=== PATIENT | male | born 1985 | race Caucasian/White ===

== ENCOUNTER 2016-07-12 17:10 | Emergency (ER) | payer OTHER ==
[~2016-07-12] VITALS: Ht 175.3 cm; Wt 63.0 kg
[~2016-07-12 17:10] MED LIST: ATOM40CA PO; DOXY-300 PO; HYDR-5688 PO; NAPR-1169 PO
[2016-07-12 17:26] VITALS: TEMP 37; Ht 175.3 cm; Wt 63.0 kg
--- NOTE | 2016-07-12 17:49 | EMERGENCY ROOM VISIT NOTE ---
History Report prepared by Ana: Mady Russell Under the Supervision of: Dr. Cm Hare D.O. First contact with patient: 17:26 Chief Complaint: MENTAL HEALTH EVALUATION Stated Complaint: MENTAL HEATLTH EVAL History of Present Illness The patient is a 31 year old male who presents to the Emergency Room with complaints of constant depression beginning a week ago. The patient states that he is hearing whispering when he is around people. He reports that the whispers are like someone is talking about him but he can not make out what they are saying. He reports that he has been cutting his wrists since last week. The patient states that he stopped taking his medication for depression. He notes that he went to the [facility] 2 months ago for 2 weeks after attempting to commit suicide. When he got out of the [facility] he was feeling better than before he went in. He has suicidal ideation with no plan other than cutting. The patient states that he "honestly would like to fuck my dad up right now because after I got out of the [facility] he tied a noose around my bag". Source of History: patient Onset: last week Position: other (mental health) Quality: other (depression) Timing: constant Note: Suicidal ideations. Review of Systems See HPI for pertinent positives & negatives. A total of 10 systems reviewed and were otherwise negative. Past Medical & Surgical Medical Problems: (1) Bronchitis (2) Cellulitis (3) Cervical adenopathy (4) Chest pain, precordial (5) Genital warts (6) No history of heart disease (7) Pancreatitis (8) Pneumomediastinum (9) Pneumonia Family History Cancer Diabetes mellitus FH: cancer Gallbladder disease Heart disease Hypertension Kidney disease Kidney stones Lung disease Seizures Social History Smoking Status: Current Every Day Smoker Alcohol Use: occasionally Drug Use: marijuana Marital Status: single Housing Status: lives alone Occupation Status: unemployed Current/Historical Medications Scheduled Aspirin (Aspirin Ec), 81 MG PO DAILY Atomoxetine (Strattera), 40 MG PO DAILY Clonidine Hcl (Catapres), 1 TAB PO BID Naproxen (Naprosyn), 500 MG PO BID Probiotic Product (Probiotic), 1 CAP PO DAILY Allergies Coded Allergies: No Known Allergies (Unverified , 07/12/16) Physical Exam Vital Signs Date Time Temp Pulse Resp B/P Pulse Ox O2 Delivery O2 Flow Rate FiO2 07/13/16 07:35 71 15 133/78 98 Room Air 07/12/16 23:12 97 18 116/70 99 Room Air 07/12/16 17:26 37.0 115 18 144/105 98 Room Air Physical Exam GENERAL: Patient is awake, alert, very guarded and somewhat anxious appearing. EYES: The conjunctivae are clear. The pupils are round and reactive. EARS, NOSE, MOUTH AND THROAT: The nose is without any evidence of any deformity. Mucous membranes are moist tongue is midline NECK: The neck is nontender and supple. RESPIRATORY: Normal respiratory effort is noted there is no evidence of wheezing rhonchi or rales CARDIOVASCULAR: Regular rate and rhythm noted there no murmurs rubs or gallops normal S1 normal S2 GASTROINTESTINAL: The abdomen is soft. Bowel sounds are present in all quadrants. Abdomen is nontender MUSCULOSKELETAL/EXTREMITIES: There is no evidence of gross deformity full range of motion is noted in the hips and shoulders SKIN: There is no obvious evidence of any rash. There are no petechiae, pallor or cyanosis noted. Multiple superficial abrasions to the wrist, no active bleeding. NEUROLOGIC: Patient is awake alert and oriented x3 strength is symmetric patellar reflexes are 2+ bilaterally PSYCH: The patient was awake and very guarded appearing, he was very anxious and makes poor eye contact. He admits to suicidal and homicidal ideation. Medical Decision & Procedures Laboratory Results 07/12/16 18:00 Red Blood Count 5.19, Mean Corpuscular Volume 89.8, Mean Corpuscular Hemoglobin 32.8, Mean Corpuscular Hemoglobin Concent 36.5, Mean Platelet Volume 9.5, Neutrophils (%) (Auto) 71.2, Lymphocytes (%) (Auto) 18.7, Monocytes (%) (Auto) 6.1, Eosinophils (%) (Auto) 3.5, Basophils (%) (Auto) 0.2, Neutrophils # (Auto) 7.59, Lymphocytes # (Auto) 1.99, Monocytes # (Auto) 0.65, Eosinophils # (Auto) 0.37, Basophils # (Auto) 0.02 07/12/16 18:00 Test 07/12/16 17:34 07/12/16 18:00 Urine Color DK YELLOW Urine Appearance CLEAR (CLEAR) Urine pH 5.0 (4.5-7.5) Urine Specific [place] 1.026 (1.000-1.030) Urine Protein 1+ (NEG) Urine Glucose (UA) NEG (NEG) Urine Ketones 1+ (NEG) Urine Occult Blood NEG (NEG) Urine Nitrite NEG (NEG) Urine Bilirubin NEG (NEG) Urine Urobilinogen NEG (NEG) Urine Leukocyte Esterase NEG (NEG) Urine WBC (Auto) 1-5 /hpf (0-5) Urine RBC (Auto) 0-4 /hpf (0-4) Urine Hyaline Casts (Auto) 5-10 /lpf (0-5) Urine Epithelial Cells (Auto) 10-20 /lpf (0-5) Urine Bacteria (Auto) NEG (NEG) Urine Opiates Screen POS (NEG) Urine Methadone, Qualitative NEG (NEG) Urine Barbiturates NEG (NEG) Urine Phencyclidine (PCP) Level NEG (NEG) Ur Amphetamine/Methamphetamine NEG (NEG) MDMA (Ecstasy) Screen NEG (NEG) Urine Benzodiazepines Screen NEG (NEG) Urine Cocaine Metabolite NEG (NEG) Urine Marijuana (THC) POS (NEG) White Blood Count 10.65 K/uL (4.8-10.8) Red Blood Count 5.19 M/uL (4.7-6.1) Hemoglobin 17.0 g/dL (14.0-18.0) Hematocrit 46.6 % (42-52) Mean Corpuscular Volume 89.8 fL (80-100) Mean Corpuscular Hemoglobin 32.8 pg (25-34) Mean Corpuscular Hemoglobin Concent 36.5 g/dl (32-36) Platelet Count 213 K/uL (130-400) Mean Platelet Volume 9.5 fL (7.4-10.4) Neutrophils (%) (Auto) 71.2 % Lymphocytes (%) (Auto) 18.7 % Monocytes (%) (Auto) 6.1 % Eosinophils (%) (Auto) 3.5 % Basophils (%) (Auto) 0.2 % Neutrophils # (Auto) 7.59 K/uL (1.4-6.5) Lymphocytes # (Auto) 1.99 K/uL (1.2-3.4) Monocytes # (Auto) 0.65 K/uL (0.11-0.59) Eosinophils # (Auto) 0.37 K/uL (0-0.5) Basophils # (Auto) 0.02 K/uL (0-0.2) RDW Standard Deviation 42.6 fL (36.4-46.3) RDW Coefficient of Variation 13.0 % (11.5-14.5) Immature Granulocyte % (Auto) 0.3 % Immature Granulocyte # (Auto) 0.03 K/uL (0.00-0.02) Anion Gap 13.0 mmol/L (3-11) Est Creatinine Clear Calc Drug Dose 106.7 ml/min Estimated GFR () 131.5 Estimated GFR (Non- 113.5 BUN/Creatinine Ratio 16.9 (10-20) Calcium Level 9.2 mg/dl (8.5-10.1) Total Bilirubin 0.8 mg/dl (0.2-1) Direct Bilirubin 0.2 mg/dl (0-0.2) Aspartate Amino Transf (AST/SGOT) 25 U/L (15-37) Alanine Aminotransferase (ALT/SGPT) 26 U/L (12-78) Alkaline Phosphatase 111 U/L (45-117) Total Protein 7.2 gm/dl (6.4-8.2) Albumin 3.9 gm/dl (3.4-5.0) Globulin 3.3 gm/dl (2.5-4.0) Albumin/Globulin Ratio 1.2 (0.9-2) Thyroid Stimulating Hormone (TSH) 0.533 uIu/ml (0.300-4.500) Ethyl Alcohol mg/dL < 3.0 mg/dl (0-3) Laboratory results per my review. Medications Administered Medications (Trade) Dose Ordered Sig/Amada Route Start Time Stop Time Status Last Admin Dose Admin Clonidine HCl (Catapres Tab) 0.2 mg NOW ONCE PO 07/12/16 18:00 07/12/16 18:01 DC 07/12/16 18:13 0.2 MG Nicotine (Nicoderm Cq 14MG Patch) 1 patch STK-MED ONCE .ROUTE 07/12/16 23:35 07/12/16 23:37 DC 07/12/16 23:39 1 PATCH Aspirin (Aspirin Chew) 81 mg NOW STAT PO 07/13/16 07:34 07/13/16 07:35 DC 07/13/16 08:04 81 MG Clonidine HCl (Catapres Tab) 0.1 mg NOW ONCE PO 07/13/16 07:45 07/13/16 07:46 DC 07/13/16 08:04 0.1 MG Naproxen (Naprosyn Tab) 500 mg NOW STAT PO 07/13/16 11:13 07/13/16 11:14 DC 07/13/16 11:20 500 MG ED Course 1726: The patient was evaluated in room A5. A complete history and physical examination were performed. 1800: Clonidine HCl 0.2mg PO. 2011: I reevaluated the patient. He is going to stay the night and possibly go to the [facility] in the morning. He is agreeable to this. 2300: The patient was signed out to Dr. Liu. Medical Decision Differential diagnosis: Etiologies such as mood disorder, infection, hypoglycemia, electrolyte abnormalities, cardiac sources, intracerebral event, toxicologic, neurologic, as well as others were entertained. Nursing notes reviewed. The patient's previous electronic medical records were reviewed. The patient is a 31-year-old male who presented to the emergency department for a mental health evaluation. The patient has been having significant depression symptoms. He has been cutting his arm in attempt to harm himself. He also has significant homicidal thoughts toward his father. The patient was admitted to facility recently and had some medications changed. The patient states he has not been compliant with his medications. He was treated with clonidine in the emergency department. He was reevaluated multiple times. He was feeling much better on subsequent reevaluation. The patient was medically cleared in the emergency department. He was felt to be a good candidate for inpatient management. He was initially evaluated by the emergency department mental health caseworker protective services. He was then evaluated by the [facility]. At this time a bed search is underway. Impression Primary Impression: Depression Additional Impressions: Suicidal ideation Self-harming behavior Scribe Attestation The scribe's documentation has been prepared under my direction and personally reviewed by me in its entirety. I confirm that the note above accurately reflects all work, treatment, procedures, and medical decision making performed by me. Departure Information Dispostion Still a Patient Referrals No Doctor, Assigned (PCP) Patient Instructions My [facility] Problem Qualifiers
[2016-07-12] MEDS ORDERED: MISCCAP80 PO (17:52)
[2016-07-12] MEDS ORDERED: CLONIDINE HCL 0.1 MG TAB PO ONE (18:00)
[2016-07-12 18:12] LABS: BASO % 0.2 %; BASO ABS # 0.02 K/uL (0-0.2); COMPLETE YES; EOS % 3.5 %; HEMATOCRIT 46.6 % (42-52); IG% 0.3 %; LYMPH % 18.7 %; LYMPH ABS # 1.99 K/uL (1.2-3.4); MEAN CELL VOLUME 89.8 fL (80-100); MEAN CORPUSCULAR HEMOGLOBIN 32.8 pg (25-34); MEAN CORPUSCULAR HGB CONC 36.5 g/dl (32-36); MEAN PLATELET VOLUME 9.5 fL (7.4-10.4); MONO % 6.1 %; NEUT % 71.2 %; PLATELET COUNT 213 K/uL (130-400); RED BLOOD COUNT 5.19 M/uL (4.7-6.1); WHITE BLOOD COUNT 10.65 K/uL (4.8-10.8)
[2016-07-12 18:15] LABS: URINE APPEARANCE CLEAR (CLEAR); URINE COLOR DK YELLOW; URINE NITRITE NEG (NEG); URINE SPECIFIC GRAVITY 1.026 (1.000-1.030); UROBILINOGEN NEG (NEG)
[2016-07-12 18:17] LABS: MANUAL MICROSCOPIC REQUIRED? NO; REVIEW REQ? NO; URINE BILIRUBIN NEG (NEG)
[2016-07-12 18:34] LABS: BUN/CREATININE RATIO 16.9 (10-20); CALCIUM 9.2 mg/dl (8.5-10.1); CREATININE 0.91 mg/dl (0.60-1.40); POTASSIUM 3.5 mmol/L (3.5-5.1)
[2016-07-12 18:42] LABS: BENZODIAZEPINE, URINE NEG (NEG); COCAINE,URINE NEG (NEG); PHENCYCLIDINE, URINE NEG (NEG)
[2016-07-12 18:44] LABS: ALB/GLOB RATIO 1.2 (0.9-2); THYROID STIMULATING HORMONE 0.533 uIu/ml (0.300-4.500)
[2016-07-12] MEDS ORDERED: NURSING VERBAL MED ORDER ONE (23:30)
[2016-07-12] MEDS ORDERED: NICOTINE 14 MG/24 HR TDSY ONE (23:35)
[2016-07-12] MEDS ORDERED: NICOTINE 14 MG/24 HR TDSY TD STA (23:40)
--- NOTE | 2016-07-13 07:05 | EMERGENCY ROOM VISIT NOTE ---
ED Visit Note First contact with patient: 00:44 This case was signed out to me at change of shift awaiting further evaluation by mobile crisis. They have been performing a bed search for quite some time. They have not found any facility that is willing to take this patient. At this time, the bed search will be suspended. I checked on the patient multiple times and he was sleeping. The case was signed out to Dr. Gonzales at change of shift. They will resume the bed search this morning.
[2016-07-13] MEDS ORDERED: ASPIRIN 81 MG CHEW PO STA (07:34)
[2016-07-13] MEDS ORDERED: CLONIDINE HCL 0.1 MG TAB PO ONE (07:45)
[2016-07-13] MEDS ORDERED: NAPROXEN 250 MG TAB PO STA (11:13)
--- NOTE | 2016-07-13 13:35 | EMERGENCY ROOM VISIT NOTE ---
ED Visit Note First contact with patient: 07:34 This patient was signed out to me pending psychiatric placement. I did provide his morning medications. He was accepted by [facility] and will be transported securely at 5 PM.
[2016-07-13] MEDS ORDERED: NICOTINE POLACRILEX 2 MG GUM MT STA (13:49)
[2016-07-13 19:02] VITALS: BP 123/74; PULSE 75; O2SAT 96
[2016-07-15 12:07] LABS: COD UR NEGATIVE NG/ML (CUTOFF=50); HYDROCOD UR 548 NG/ML (CUTOFF=50); HYDROMOR UR 618 NG/ML (CUTOFF=50); MORPHINE UR NEGATIVE NG/ML (CUTOFF=50); NORHYDROCODONE CONF UR 1750 NG/ML (CUTOFF=50); OXYMORPH UR NEGATIVE NG/ML (CUTOFF=50)
[2016-07-16 13:33] LABS: SYNTHETIC CANNABINOIDS QL URIN NEGATIVE (Negative)
[2016-09-14] MEDS ORDERED: SERT-234 PO (11:29)
[2016-09-14] MEDS ORDERED: CHLO100T8 PO (11:51)
[2017-03-03] MEDS ORDERED: CLON0.1T12 PO (02:11)
[2017-03-03] MEDS ORDERED: ASPI81TA28 PO (02:11)
[2017-03-03] MEDS ORDERED: SERT-234 PO (02:31)
== END 2016-07-13 18:35 ==
LOC: C.EDB 17:11 → C.EDA 07-13 18:35
DX: F32.9 Major depressive disorder, single episode, unspecified (principal); R45.851 Suicidal ideations; Z91.5 Personal history of self-harm; F17.210 Nicotine dependence, cigarettes, uncomplicated; Z79.82 Long term (current) use of aspirin; Z79.899 Other long term (current) drug therapy

== ENCOUNTER 2016-09-07 11:46 | Inpatient (IN) | payer OTHER ==
[~2016-09-07] VITALS: Ht 175.3 cm; Wt 67.4 kg
[~2016-09-07 11:46] MED LIST changes: -DOXY-300 PO; -HYDR-5688 PO; +MISCCAP80 PO
[2016-09-07] MEDS ORDERED: LORAZEPAM 1 MG TAB SL STA (12:07)
[2016-09-07] MEDS ORDERED: HALOPERIDOL 5 MG TAB PO STA (12:07)
[2016-09-07 12:35] LABS: URINE APPEARANCE CLEAR (CLEAR); URINE BILIRUBIN NEG (NEG); URINE COLOR YELLOW; URINE NITRITE NEG (NEG); URINE PH 7.5 (4.5-7.5); URINE SPECIFIC GRAVITY 1.005 (1.000-1.030); UROBILINOGEN NEG (NEG)
[2016-09-07 12:36] LABS: MANUAL MICROSCOPIC REQUIRED? NO; REVIEW REQ? NO
[2016-09-07] MEDS ORDERED: AMPH20TA2 PO (12:48)
[2016-09-07] MEDS ORDERED: SERT-234 PO (12:48)
[2016-09-07] MEDS ORDERED: ZOLP10TA PO (12:48)
[2016-09-07] MEDS ORDERED: GABA400C PO (12:48)
[2016-09-07] MEDS ORDERED: CHLO100T8 PO (12:48)
[2016-09-07 12:58] LABS: BASO % 0.7 %; BASO ABS # 0.05 K/uL (0-0.2); COMPLETE YES; EOS % 9.9 %; HEMATOCRIT 41.2 % (42-52); IG% 0.4 %; LYMPH % 29.7 %; LYMPH ABS # 2.26 K/uL (1.2-3.4); MEAN CELL VOLUME 91.4 fL (80-100); MEAN CORPUSCULAR HEMOGLOBIN 31.3 pg (25-34); MEAN CORPUSCULAR HGB CONC 34.2 g/dl (32-36); MEAN PLATELET VOLUME 9.5 fL (7.4-10.4); MONO % 9.6 %; NEUT % 49.7 %; PLATELET COUNT 237 K/uL (130-400); RED BLOOD COUNT 4.51 M/uL (4.7-6.1)
[2016-09-07 13:00] LABS: BENZODIAZEPINE, URINE NEG (NEG); COCAINE,URINE NEG (NEG); PHENCYCLIDINE, URINE NEG (NEG)
--- NOTE | 2016-09-07 13:13 | EMERGENCY ROOM VISIT NOTE ---
History Report prepared by Ana: Estrella Oconnor Under the Supervision of: Dr. Cm Hare D.O. First contact with patient: 12:03 Chief Complaint: MENTAL HEALTH EVALUATION Stated Complaint: CAN HELP History of Present Illness The patient is a 31 year old male who presents to the Emergency Room with complaints of worsening depression that began prior to arrival. Per the psych case coordinator, the patient was at his therapist's office today and stated that he has access to guns and wanted to harm himself. She notes that the patient has a list of people that he would like to harm as well. The psych case coordinator notes that the patient is a former heroin user. The patient states that today he is feeling increasingly depressed and wants to "blow his brains out." He additionally notes his list of people he would want to harm. The patient states that he isn't going to act on his threats. He states that he has been dealing with the feelings for most of his life. The patient notes that he is a self mutilator. He denies ever doing anything in the past with a firearm. The patient denies owning a firearm, but states that he does have access to them. The patient states that his aggressive tendencies have caused him to make the homicidal threats. He states that he hasn't taken his medications in two days. The patient states that he is currently supposed to be on Latuda, Ambien, Klonidine, Adderall, Gabapentin, and Sertraline. He states that he had adverse effects from Latuda, and then stopped taking the rest of his medications. The patient states that he has done this in the past. He states that he has been hospitalized for psychiatric reasons three times within the last three months. The patient states that he has always been voluntary in the past and states that his last admission was at [place]. He states that he is feeling anxious today. The patient notes tobacco, alcohol, and marijuana use. He notes a medical history of pancreatitis due to his alcohol use. The patient states that he did not eat today. Source of History: patient, other (psych case coordinator) Onset: prior to arrival Position: other (global) Quality: other (depression) Timing: worsening Note: Associated Symptoms: stopped taking medications, suicidal and homicidal threats Review of Systems See HPI for pertinent positives & negatives. A total of 10 systems reviewed and were otherwise negative. Past Medical & Surgical Medical Problems: (1) Bronchitis (2) Cellulitis (3) Cervical adenopathy (4) Chest pain, precordial (5) Genital warts (6) No history of heart disease (7) Pancreatitis (8) Pneumomediastinum (9) Pneumonia (10) Suicidal ideation Family History Cancer Diabetes mellitus FH: cancer Gallbladder disease Heart disease Hypertension Kidney disease Kidney stones Lung disease Seizures Social History Smoking Status: Current Every Day Smoker Alcohol Use: occasionally Drug Use: marijuana Marital Status: single Housing Status: lives alone Occupation Status: unemployed Current/Historical Medications Scheduled Amphetamine-Dextroamphetamine 20MG (Adderall 20MG), 20 MG PO BID Aspirin (Aspirin Ec), 81 MG PO DAILY Clonidine Hcl (Catapres), 1 TAB PO BID Gabapentin (Neurontin), 400 MG PO TID Naproxen (Naprosyn), 500 MG PO BID Probiotic Product (Probiotic), 1 CAP PO DAILY Sertraline (Zoloft), 100 MG PO DAILY Zolpidem Tartrate (Ambien), 10 MG PO HS Scheduled PRN Chlorpromazine Hcl (Thorazine), 100 MG PO TID PRN for Agitation Allergies Coded Allergies: No Known Allergies (Unverified , 09/07/16) Physical Exam Vital Signs Date Time Temp Pulse Resp B/P Pulse Ox O2 Delivery O2 Flow Rate FiO2 09/07/16 11:51 37.1 105 16 125/71 100 Room Air Physical Exam GENERAL: Patient is pacing around the room, very guarded and anxious in appearance. EYES: The conjunctivae are clear. The pupils are round and reactive. EARS, NOSE, MOUTH AND THROAT: The nose is without any evidence of any deformity. Mucous membranes are moist tongue is midline NECK: The neck is nontender and supple. RESPIRATORY: Normal respiratory effort is noted there is no evidence of wheezing rhonchi or rales CARDIOVASCULAR: Regular rate and rhythm noted there no murmurs rubs or gallops normal S1 normal S2 GASTROINTESTINAL: The abdomen is soft. Bowel sounds are present in all quadrants. Abdomen is nontender MUSCULOSKELETAL/EXTREMITIES: There is no evidence of gross deformity full range of motion is noted in the hips and shoulders SKIN: There is no obvious evidence of any rash. There are no petechiae, pallor or cyanosis noted. NEUROLOGIC: Patient is awake alert and oriented x3 strength is symmetric patellar reflexes are 2+ bilaterally PSYCH: Very guarded and anxious appearing. Makes poor eye contact at times. Admits to suicidal ideation with plans to shoot self. Does not appear to be responding to internal stimuli. Medical Decision & Procedures Laboratory Results 09/07/16 12:45 Red Blood Count 4.51, Mean Corpuscular Volume 91.4, Mean Corpuscular Hemoglobin 31.3, Mean Corpuscular Hemoglobin Concent 34.2, Mean Platelet Volume 9.5, Neutrophils (%) (Auto) 49.7, Lymphocytes (%) (Auto) 29.7, Monocytes (%) (Auto) 9.6, Eosinophils (%) (Auto) 9.9, Basophils (%) (Auto) 0.7, Neutrophils # (Auto) 3.78, Lymphocytes # (Auto) 2.26, Monocytes # (Auto) 0.73, Eosinophils # (Auto) 0.75, Basophils # (Auto) 0.05 09/07/16 12:45 Test 09/07/16 12:15 09/07/16 12:45 Urine Color YELLOW Urine Appearance CLEAR (CLEAR) Urine pH 7.5 (4.5-7.5) Urine Specific [place] 1.005 (1.000-1.030) Urine Protein NEG (NEG) Urine Glucose (UA) NEG (NEG) Urine Ketones NEG (NEG) Urine Occult Blood NEG (NEG) Urine Nitrite NEG (NEG) Urine Bilirubin NEG (NEG) Urine Urobilinogen NEG (NEG) Urine Leukocyte Esterase NEG (NEG) Urine Opiates Screen NEG (NEG) Urine Methadone, Qualitative NEG (NEG) Urine Barbiturates NEG (NEG) Urine Phencyclidine (PCP) Level NEG (NEG) Ur Amphetamine/Methamphetamine NEG (NEG) MDMA (Ecstasy) Screen NEG (NEG) Urine Benzodiazepines Screen NEG (NEG) Urine Cocaine Metabolite NEG (NEG) Urine Marijuana (THC) POS (NEG) White Blood Count 7.60 K/uL (4.8-10.8) Red Blood Count 4.51 M/uL (4.7-6.1) Hemoglobin 14.1 g/dL (14.0-18.0) Hematocrit 41.2 % (42-52) Mean Corpuscular Volume 91.4 fL (80-100) Mean Corpuscular Hemoglobin 31.3 pg (25-34) Mean Corpuscular Hemoglobin Concent 34.2 g/dl (32-36) Platelet Count 237 K/uL (130-400) Mean Platelet Volume 9.5 fL (7.4-10.4) Neutrophils (%) (Auto) 49.7 % Lymphocytes (%) (Auto) 29.7 % Monocytes (%) (Auto) 9.6 % Eosinophils (%) (Auto) 9.9 % Basophils (%) (Auto) 0.7 % Neutrophils # (Auto) 3.78 K/uL (1.4-6.5) Lymphocytes # (Auto) 2.26 K/uL (1.2-3.4) Monocytes # (Auto) 0.73 K/uL (0.11-0.59) Eosinophils # (Auto) 0.75 K/uL (0-0.5) Basophils # (Auto) 0.05 K/uL (0-0.2) RDW Standard Deviation 45.1 fL (36.4-46.3) RDW Coefficient of Variation 13.5 % (11.5-14.5) Immature Granulocyte % (Auto) 0.4 % Immature Granulocyte # (Auto) 0.03 K/uL (0.00-0.02) Anion Gap 10.0 mmol/L (3-11) Est Creatinine Clear Calc Drug Dose 122.6 ml/min Estimated GFR () 135.8 Estimated GFR (Non- 117.2 BUN/Creatinine Ratio 19.0 (10-20) Calcium Level 8.5 mg/dl (8.5-10.1) Total Bilirubin 0.2 mg/dl (0.2-1) Direct Bilirubin < 0.1 mg/dl (0-0.2) Aspartate Amino Transf (AST/SGOT) 31 U/L (15-37) Alanine Aminotransferase (ALT/SGPT) 55 U/L (12-78) Alkaline Phosphatase 136 U/L (45-117) Total Protein 7.4 gm/dl (6.4-8.2) Albumin 4.0 gm/dl (3.4-5.0) Globulin 3.4 gm/dl (2.5-4.0) Albumin/Globulin Ratio 1.2 (0.9-2) Thyroid Stimulating Hormone (TSH) 2.590 uIu/ml (0.300-4.500) Ethyl Alcohol mg/dL < 3.0 mg/dl (0-3) Laboratory results per my review. Medications Administered Medications (Trade) Dose Ordered Sig/Amada Route Start Time Stop Time Status Last Admin Dose Admin Lorazepam (Ativan Tab) 1 mg NOW STAT SL 09/07/16 12:07 09/07/16 12:08 DC 09/07/16 12:30 1 MG Haloperidol (Haldol Tab) 5 mg ONE STAT PO 09/07/16 12:07 09/07/16 12:08 DC 09/07/16 12:30 5 MG Amphetamine Aspartate/ Amphetam Sulf (Amphetamine Aspartate/Amph Sulf/Dextramphet) 20 mg ONE STAT PO 09/07/16 14:22 09/07/16 14:24 DC 09/07/16 14:22 20 MG Gabapentin (Neurontin Cap) 400 mg ONE STAT PO 09/07/16 14:22 09/07/16 14:24 DC 09/07/16 14:59 400 MG Sertraline HCl (Zoloft Tab) 100 mg ONE STAT PO 09/07/16 14:22 09/07/16 14:24 DC 09/07/16 14:59 100 MG ED Course 1206: The patient was evaluated in room A7. A complete history and physical examination were performed. 1207: Ordered Haldol Tab 5 mg PO, Ativan Tab 1 mg SL. 1422: Ordered Zoloft Tab 100 mg PO, Gabapentin 400 mg PO, Amphetamine Aspartate/ Amphetam Sulf 20 mg PO. 1452: I reevaluated the patient and he is resting comfortably. I discussed the exam findings and I discussed the treatment plan. He verbalized complete understanding and agreement. He has been accepted to [facility] for further evaluation and treatment. Medical Decision Differential diagnosis: Etiologies such as mood disorder, infection, hypoglycemia, electrolyte abnormalities, cardiac sources, intracerebral event, toxicologic, neurologic, as well as others were entertained. Nursing notes reviewed. Additional history was obtained from the patient's therapist. The patient is a 31-year-old male who presented to the emergency department at the request of his primary therapist for an evaluation of suicidal ideation. The patient had very specific suicidal ideation and plans. The patient was also very anxious and appeared very guarded. The patient was treated with his usual outpatient medication but was also treated with Ativan and Haldol in the emergency department for anxiety. The patient was reevaluated multiple times. He was feeling much better on subsequent reevaluation. He was evaluated by the emergency department mental health case coordinator. He was felt to be a good candidate for inpatient management and was agreeable to this. He was evaluated by the delegate from [address] [place] [id number] and was felt to be a good candidate for admission to their service. I discussed patient's laboratory studies with him. Impression Primary Impression: Depression Additional Impressions: Suicidal ideation Aggressive behavior Scribe Attestation The scribe's documentation has been prepared under my direction and personally reviewed by me in its entirety. I confirm that the note above accurately reflects all work, treatment, procedures, and medical decision making performed by me. Departure Information Dispostion Mental Health Acute Care Referrals No Doctor, Assigned (PCP) Problem Qualifiers Primary Impression: Depression Depression Type: unspecified Qualified Codes: F32.9 - Major depressive disorder, single episode, unspecified
[2016-09-07 13:16] LABS: BLOOD UREA NITROGEN 16 mg/dl (7-18); CALCIUM 8.5 mg/dl (8.5-10.1); CARBON DIOXIDE 24 mmol/L (21-32); CHLORIDE 107 mmol/L (98-107); CREATININE 0.86 mg/dl (0.60-1.40); GLUCOSE 93 mg/dl (70-99); POTASSIUM 4.2 mmol/L (3.5-5.1); SODIUM 141 mmol/L (136-145)
[2016-09-07 13:26] LABS: ALB/GLOB RATIO 1.2 (0.9-2); ALKALINE PHOSPHATASE 136 U/L (45-117); ALT/SGPT 55 U/L (12-78); AST/SGOT 31 U/L (15-37)
[2016-09-07] MEDS ORDERED: AMPHETAMINE ASP/SULF/DEXTRAMPH 20 MG TAB PO STA (14:22)
[2016-09-07] MEDS ORDERED: GABAPENTIN 400 MG CAP PO STA (14:22)
[2016-09-07] MEDS ORDERED: SERTRALINE HCL 100 MG TAB PO STA (14:22)
[2016-09-07] MEDS ORDERED: BISMUTH SUBSALICYLATE PER ML OMNICELL CHARGE PO PRN (14:45)
[2016-09-07] MEDS ORDERED: SODIUM CHLORIDE 0.65% NA SOLN 45 ML (OCEAN) PRN (14:45)
[2016-09-07] MEDS ORDERED: ACETAMINOPHEN 325 MG TAB PO PRN (14:45)
[2016-09-07] MEDS ORDERED: hydrOXYzine HCL 25 MG TAB PO PRN (14:45)
[2016-09-07] MEDS ORDERED: MAGNESIUM HYDROXIDE SUSP 30 ML UDC PO PRN (14:45)
[2016-09-07] MEDS ORDERED: CHLORPROMAZINE HCL 100 MG TAB PO PRN (14:45)
[2016-09-07] MEDS ORDERED: ALUMINUM/MAGNESIUM SUSP 30 ML UDC PO PRN (14:45)
[2016-09-07 15:41] VITALS: O2SAT 99
[2016-09-07] MEDS ORDERED: NURSING VERBAL MED ORDER ONE (16:15)
[2016-09-07 17:04] VITALS: BP 134/87; PULSE 91; TEMP 37; Ht 175.3 cm; Wt 67.4 kg
[2016-09-07] MEDS: NICOTINE 21 MG/24 HR TDSY EXT SCH (21:03)
[2016-09-07] MEDS: GABAPENTIN 400 MG CAP PO SCH (21:55)
[2016-09-07] MEDS: CLONIDINE HCL 0.1 MG TAB PO SCH (21:56)
[2016-09-07] MEDS: NAPROXEN 250 MG TAB PO SCH (21:57)
[2016-09-07] MEDS: hydrOXYzine HCL 25 MG TAB PO PRN (23:12)
[2016-09-08 07:02] VITALS: BP_SYST 107; BP_SYST 110; BP_DIAS 71; BP_DIAS 75; PULSE 88; PULSE 97; TEMP 36.8
[2016-09-08] MEDS: NICOTINE 21 MG/24 HR TDSY EXT SCH (08:51)
[2016-09-08] MEDS: ASPIRIN 81 MG ECTAB PO SCH (08:52)
[2016-09-08] MEDS: CLONIDINE HCL 0.1 MG TAB PO SCH ×2 (08:52→21:18)
[2016-09-08] MEDS: GABAPENTIN 400 MG CAP PO SCH (08:52)
[2016-09-08] MEDS: NAPROXEN 250 MG TAB PO SCH ×2 (08:52→21:18)
[2016-09-08] MEDS ORDERED: SERTRALINE HCL 100 MG TAB PO SCH (09:00)
[2016-09-08] MEDS ORDERED: HALOPERIDOL LACTATE 5 MG/ML 1 ML VIAL IM PRN (10:30)
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
[2016-09-08] MEDS: HALOPERIDOL 5 MG TAB PO PRN ×2 (13:17→17:30)
[2016-09-08] MEDS ORDERED: ZOLPIDEM TARTRATE 10 MG TAB PO SCH (22:00)
[2016-09-09 06:52] VITALS: BP_SYST 104; BP_SYST 107; BP_DIAS 68; PULSE 69; PULSE 75; TEMP 36.6
[2016-09-09] MEDS: NICOTINE 21 MG/24 HR TDSY EXT SCH (08:23)
[2016-09-09] MEDS: NAPROXEN 250 MG TAB PO SCH ×2 (08:24→21:23)
[2016-09-09] MEDS: CLONIDINE HCL 0.1 MG TAB PO SCH ×2 (08:24→21:23)
[2016-09-09] MEDS: ASPIRIN 81 MG ECTAB PO SCH (08:24)
[2016-09-09] MEDS: SERTRALINE HCL 100 MG TAB PO SCH (08:24)
[2016-09-09] MEDS: HALOPERIDOL 5 MG TAB PO PRN ×2 (08:40→21:23)
--- NOTE | 2016-09-09 11:46 | Psychiatric Progress Notes ---
Progress Note Date of Service Sep 09, 2016. Interval History Beto Tinajero is a 31-year-old male with a self-reported history of schizoaffective disorder depressed type, as well as polysubstance abuse, who presented to the emergency room after he made statements about shooting himself and others led a therapy appointment at [facility]. There is a 302 petition completed by his therapist, but he signed in voluntarily. Information provided by the patient is considered to be partially reliable, and he is not always forthcoming with information. Chief Complaint "Tired". Subjective Patient was seen & assessed interval progress reviewed with Treatment Team. Staff report he refused all groups except for one yesterday, and although he attended, did not participate. [facility] staff were contacted, and confirmed that the patient has been using their services and can continue to do so. He has requested and received several doses of Haldol 5 mg for auditory hallucinations. He is eating 100% of meals, and slept 6 hours overnight, as well as several hours this morning, and was seen in his room where he is still in bed. He says he is tired, and complains of poor sleep overnight. He refused breakfast and has not attended any groups yesterday, but states he will attend group later this afternoon. He says his mood is "not terrible," and denies suicidal or homicidal thoughts since yesterday. He is unwilling to work with staff to find a way to get a hold of his uncle, stating that he doesn't have his phone number, and won't allow staff to contact his parents to get the phone number. He says he will return to [facility] and out of the [facility] and use those services until he can move in with his uncle. He says he is not sure if the Haldol has been helpful, and continues to refuse a scheduled antipsychotic medication, stating he just wants to take it as needed. Yesterday he claims that he saw Dr. Willis and that he was prescribing Adderall, and when advised that his prescription could not be located on the [facility], he stated that he had not filled it yet and had in his backpack. Today, Dr. Willis's office called to states that the patient has never been seen there, and that no medications have been prescribed for him. When the patient was confronted with this, he admits that he has never seen Dr. Willis, and says "but he supposed to be re-writing my prescriptions." After much discussion, he also admits that he has not been prescribed Adderall, "but I had Strattera and it's not working." When asked if he has any questions, he says "yeah, when's my discharge date?" We again reviewed the treatment recommendations and encouraged him to engage in treatment and work towards a safe discharge. Sleep Information Total Hours of Sleep: 6.25 Meal Information Percent of Breakfast Consumed: 100 Percent of Lunch Consumed: 85 Percent of Dinner Consumed: 100 Mental Status Exam During interview pt is: other (lying in bed with the covers pulled up, refuses to set up or make eye contact, and is poorly engaged) Appearance: disheveled, appeared stated age, other (large nose ring and eyebrow ring, shirtless) Eye contact is: fair Motor behavior is: no abnormal motor movements Speech: other (monotone, slightly slowed) Affect: constricted (to tired and irritable) Mood is: other ("tired") Thought process: goal directed Thought content: reality based without delusions Suicidal thought are: denied Homicidal thoughts are: denied Hallucinations: auditory (mumbling voices), denies visual Cognition: memory grossly intact, attention grossly intact, language grossly intact Intelligence estimated to be: consistent with level of education Insight: impaired Judgement: impaired Impression 31-year-old single white male with a self-reported history of schizoaffective disorder, as well as polysubstance abuse and likely antisocial personality disorder who presents after he endorsed suicidal and homicidal thoughts to his therapist. He admits to this, and also admits to access to guns, and is resistant to working on a safety plan, feeling he doesn't need to be in the hospital. He has been noncompliant with his outpatient medications, and continues to abuse various substances. Inpatient treatment is recommended due to current high risk for harm to both self and others. Care will need to be coordinated with his outpatient providers, and a good safety plan put in place prior to discharge. Plan (1) Suicidal ideation -Every 15 minute checks for safety. -Encourage participation in groups and therapy to work on healthy coping skills and her discharge safety plan. -Reviewed recommendations with the patient to confirm that his guns are secured and that he will have access with them until he stabilized. He is refusing to allow staff to talk to the individual whom he says has his guns. 09/09 -Call placed to coordinate care with his therapist Beryl at [facility]. Message and callback number were left with staff. -Spoke to Beryl to review his case. Advised her of our treatment plan and concerns about his risk for violence and suicide, as well as the plan to discharge the duty to warn by contacting police, as he has not been cooperative with allowing us to talk to the person who has his guns, and is also refusing involvement of parents. Also advised her of aftercare issues as may not be able to be seen by Dr. Willis. (2) Homicidal ideation -Patient admits to thoughts to harm his father. He denies a plan to act on these, but also states that if he spoke to his father he would "shoot him." We will continue to explore and assess the duty to warn. We will contact his therapist, Beryl Parsons at [facility], as records indicate that he had a list of people he wanted to harm, which we do not have access to here at the hospital. (3) Schizoaffective disorder, depressive type -Initially patient would only agree to Thorazine when necessary, refusing to resume lurasidone due to perceived side effects, but after reviewing other antipsychotic options, he would like to try Haldol, as he felt it was helpful in the emergency room yesterday. We will start with 5 mg as needed for psychosis, and will also order benztropine 1 mg as needed for EPS. He is a poor historian for other antipsychotic trials, and will need to get records from recent hospitalizations and from outpatient psychiatrist, Dr. Willis. -Resume home dose of sertraline 100 mg daily, increased 250 mg daily for tomorrow to target depression. He was educated about the importance of taking this medication regularly in order for it to be effective. -Call Dr. Willis's office to review presenting symptoms and concerns about medications, specifically multiple controlled substances that he says he is taking, and had to leave a message is their office is closed today. -For now will continue Ambien 10 mg daily at bedtime when necessary, as review of the PDMP reveals a prescription from [facility] filled 08/25/2016, but this will need to be discussed with his outpatient psychiatrist, as he reports abusing it, and is also abusing multiple illicit substances. -Would not recommend he be prescribed controlled substances outside of the hospital. He says he is prescribed Adderall, but there is no prescription visible in the PDMP, and stimulants are contraindicated given his substance abuse. 09/09 - Continue Haldol 5 mg when necessary psychosis. Patient is refusing a regularly scheduled antipsychotic. - Spoke with staff at Dr. Willis's office, who state that the patient has never been seen there, although he does have an initial evaluation scheduled for 09/10. - Will stop Ambien as doesn't have active outpatient prescriber and has been abusing it, as well as multiple illicit substances. (4) Aggressive behavior -The patient reports a long history of aggression, likely consistent with antisocial personality disorder. He reports the clonidine has been helpful, so we'll continue his home dose. He was advised that he is expected to remain in control of his behavior here on the unit, and that threats or violence against others and destruction of property will not be tolerated, and charges may be pressed if he engages in this type of behavior. He expressed understanding. (5) Antisocial personality disorder Patient appears to meet full criteria for ASPD, as he reports a pervasive pattern of disregard for in violation of the rights of others, repeated accidents or grounds for her arrest, impulsivity and failure to plan ahead, irritability and aggressiveness with repeated fights, reckless disregard for his safety and the safety of others, repeated failure to sustain consistent work , and lack of remorse. This was also diagnosed during his inpatient admission at the [facility] in May 2016. 09/09 - patient has been dishonest here, lying about controlled substances that he says he's been prescribed, and is evasive and refuses to answer questions regarding his access to firearms. He is not a reliable historian, but is not allowing us to talk with anyone else he could give collateral information. (6) Alcohol abuse The patient's AUDIT score suggests problematic drinking (Zone III WHO). Brief intervention was offered and accepted Intervention was greater than 5 min in length. Brief interventions include: 1. Assess Readiness to Quit, 2. Advise: Help Patient to Reduce or Abstain from Alcohol, 3. Agree: Set Specific, Feasible Goals, 4. Assist: Anticipate barriers, Problem-Solving Solutions. Social work to 5. Arrange: Referrals to appropriate treatment. Summary of intervention: The patient is in precontemplation stage with regards to transtheoretical model of change. The patient is advised to decrease alcohol consumption due to depressant effects and risk of interactions with prescription medications. The patient has poor insight into his substance abuse and does not wish to change his behavior. Will coordinate care with his outpatient providers. (7) Cannabis abuse Reviewed risks of ongoing cannabis abuse, and recommendations for abstinence. (8) Opiate abuse, continuous Patient has been abusing heroin and has a history of overdosing on opiate pain medications. Would not recommend he be prescribed controlled substances outside of the hospital. Discharge / Aftercare Planning Primary Care Physician: Name: Dr Diaz and Dr Chavez Psychiatrist: Name: Dr Willis Date of Appointment: Sep 10, 2016 Therapist: Name: Erasto Visit Code E&M Code: 10602 Inventory Assets Strengths: "My intellect, so I've been told. My moral framework." Risk Factors Assessment Male: Yes : Yes /single/: Yes Access to guns: Yes (Says he has guns which are at another friend's house, but refuses to say who or where) Health problems: Yes Mental Health Diagnoses: Yes Substance use disorders: Yes Previous attempt: Yes Previous psychiatric stay: Yes Hopelessness: Yes Smoker: Yes Protective Factors Assessment Evangelical beliefs: No : No Responsible for young children: No Employed: No Stable relationships: No Supportive family: No Good rapport with provider: No Absence of risk factors above: No Data Vital Signs Last 24 Hrs: Date Time Temp Pulse Resp B/P Pulse Ox O2 Delivery O2 Flow Rate FiO2 09/09/16 06:52 36.6 69 16 104/68 75 107/68 Meds Administered Last 24 Hrs: Meds Administered (Past 24Hrs) Medications (Trade) Dose Ordered Sig/Amada Route Start Time Stop Time Status Last Admin Dose Admin Lorazepam (Ativan Tab) 1 mg NOW STAT SL 09/07/16 12:07 09/07/16 12:08 DC 09/07/16 12:30 1 MG Haloperidol (Haldol Tab) 5 mg ONE STAT PO 09/07/16 12:07 09/07/16 12:08 DC 09/07/16 12:30 5 MG Amphetamine Aspartate/ Amphetam Sulf (Amphetamine Aspartate/Amph Sulf/Dextramphet) 20 mg ONE STAT PO 09/07/16 14:22 09/07/16 14:24 DC 09/07/16 14:22 20 MG Gabapentin (Neurontin Cap) 400 mg ONE STAT PO 09/07/16 14:22 09/07/16 14:24 DC 09/07/16 14:59 400 MG Sertraline HCl (Zoloft Tab) 100 mg ONE STAT PO 09/07/16 14:22 09/07/16 14:24 DC 09/07/16 14:59 100 MG Hydroxyzine HCl (Vistaril Tab) 50 mg HSZ PRN PO 09/07/16 14:45 10/07/16 14:44 09/07/16 23:12 50 MG Aspirin (Ecotrin Tab) 81 mg DAILY PO 09/08/16 09:00 10/08/16 08:59 09/09/16 08:24 81 MG Chlorpromazine HCl (Thorazine Tab) 100 mg TID PRN PO 09/07/16 14:45 09/08/16 10:22 DC 09/07/16 21:59 100 MG Clonidine HCl (Catapres Tab) 0.1 mg BID PO 09/07/16 21:00 10/07/16 20:59 09/09/16 08:24 0.1 MG Gabapentin (Neurontin Cap) 400 mg TID PO 09/07/16 21:00 09/08/16 09:53 DC 09/08/16 08:52 400 MG Naproxen (Naprosyn Tab) 500 mg BID PO 09/07/16 21:00 10/07/16 20:59 09/09/16 08:24 500 MG Sertraline HCl (Zoloft Tab) 100 mg DAILY PO 09/08/16 09:00 09/08/16 09:52 DC 09/08/16 08:52 100 MG Nicotine (Nicoderm Cq 21MG Patch) 1 patch QAM EXT 09/08/16 09:00 10/08/16 08:59 09/09/16 08:23 1 PATCH Zolpidem Tartrate (Ambien Tab) 10 mg HS PO 09/08/16 22:00 10/08/16 21:59 09/08/16 21:17 10 MG Sertraline HCl (Zoloft Tab) 150 mg DAILY PO 09/09/16 09:00 10/09/16 08:59 09/09/16 08:24 150 MG Haloperidol (Haldol Tab) 5 mg Q4H PRN PO 09/08/16 10:30 10/08/16 10:29 09/09/16 08:40 5 MG
[2016-09-10 06:45] VITALS: BP_SYST 115; BP_SYST 116; BP_DIAS 68; BP_DIAS 76; PULSE 65; PULSE 74; TEMP 36.5
[2016-09-10] MEDS: NICOTINE 21 MG/24 HR TDSY EXT SCH ×2 (09:00→13:41)
[2016-09-10] MEDS: CLONIDINE HCL 0.1 MG TAB PO SCH ×2 (09:03→21:00)
[2016-09-10] MEDS: ASPIRIN 81 MG ECTAB PO SCH (09:03)
[2016-09-10] MEDS: NAPROXEN 250 MG TAB PO SCH ×2 (09:04→21:01)
[2016-09-10] MEDS: SERTRALINE HCL 100 MG TAB PO SCH (09:04)
--- NOTE | 2016-09-10 12:57 | Psychiatric Progress Notes ---
Progress Note Date of Service Sep 10, 2016. Interval History Beto Tinajero is a 31-year-old male with a self-reported history of schizoaffective disorder depressed type, as well as polysubstance abuse, who presented to the emergency room after he made statements about shooting himself and others led a therapy appointment at [facility]. There is a 302 petition completed by his therapist, but he signed in voluntarily. Information provided by the patient is considered to be partially reliable, and he is not always forthcoming with information. Chief Complaint "Tired". Subjective Patient was seen & assessed interval progress reviewed. He spends much of his time in his room in bed sleeping, but attends occasional groups with encouragement from staff. He has limited interactions with others. He is eating , sleeping through the night, and taking medication - he has asked for Haldol 5mg 1-2 times daily for the past 3 days. Staff received notification that [facility] will no longer see him for therapy, as they do not feel safe, and Dr. Willis will not accept him for medication management. He was seen in his room today, where he was lying in bed with his eyes closed, and refused to sit up or open his eyes, although he did respond to questions. He gives vague one- word answers to most questions. He says his day is "long," and cannot identify anything that he is working on here. He says he cannot recall which groups he went to, or if anything discussed applied to him. When asked about coping skills he has used or can work on, the only one he can suggest is "to leave." He is evasive when asked about SI and HI, saying "I feel fine." When asked about the statements he made on admission, including admitting to thoughts of shooting his father and himself, he says "that was allegorical." He refuses to further clarify this. He continues to refuse to allow staff to talk to the person whom he says has his firearms, and refuses to work on a safety plan. He says he doesn't need to be here, "this isn't helping." He says his plans when he leaves are to "go back to work," but after some discussion admits he has not been working, although he says he was supposed to start a new job at a [employer], but hasn't contacted them to let them know he's in the hospital, so doesn't know if he has a job or not. He says he hasn't talked to any family since admission, and won't allow staff to involve anyone else in his treatment. He was advised that his current outpatient providers are not willing to continue to see him, and has no other ideas for where he could get treatment. He denies auditory hallucinations, saying he hasn't had any since he got here, but then says the Haldol doesn't work for the voices as well as Thorazine, and requests to go back to Adjug. He wants to start at 200mg tid, which he says he took in the past (although it was only prescribed 100mg tid per his report), and says he doesn't understand why we would start him at a lower dose first. Sleep Information Total Hours of Sleep: 7.50 Meal Information Percent of Breakfast Consumed: 100 Percent of Lunch Consumed: 100 Percent of Dinner Consumed: 100 Mental Status Exam During interview pt is: other (lying in bed with the covers pulled up, refuses to set up or make eye contact, and is poorly engaged) Appearance: disheveled, appeared stated age Eye contact is: other (does not open eyes) Motor behavior is: no abnormal motor movements Speech: other (monotone, slightly slowed, minimal, mostly one-word answers) Affect: constricted (to tired and irritable) Mood is: other ("tired") Thought process: goal directed Thought content: reality based without delusions Suicidal thought are: denied Homicidal thoughts are: denied Hallucinations: denies auditory, denies visual Cognition: memory grossly intact, attention grossly intact, language grossly intact Intelligence estimated to be: consistent with level of education Insight: impaired Judgement: impaired Impression 31-year-old single white male with a self-reported history of schizoaffective disorder, as well as polysubstance abuse and likely antisocial personality disorder who presents after he endorsed suicidal and homicidal thoughts to his therapist. He admits to this, and also admits to access to guns, and is resistant to working on a safety plan, feeling he doesn't need to be in the hospital. He has been noncompliant with his outpatient medications, and continues to abuse various substances. Inpatient treatment is recommended due to current high risk for harm to both self and others. Care will need to be coordinated with his outpatient providers, and a good safety plan put in place prior to discharge. Plan (1) Suicidal ideation -Every 15 minute checks for safety. -Encourage participation in groups and therapy to work on healthy coping skills and her discharge safety plan. -Reviewed recommendations with the patient to confirm that his guns are secured and that he will have access with them until he stabilized. He is refusing to allow staff to talk to the individual whom he says has his guns. 09/09 -Call placed to coordinate care with his therapist Beryl at [facility]. Message and callback number were left with staff. -Spoke to Beryl to review his case. Advised her of our treatment plan and concerns about his risk for violence and suicide, as well as the plan to discharge the duty to warn by contacting police, as he has not been cooperative with allowing us to talk to the person who has his guns, and is also refusing involvement of parents. Also advised her of aftercare issues as may not be able to be seen by Dr. Willis. 09/10 - Patient remains uncooperative with attempts to safety plan and plan to ensure guns are secured until he has stabilized. He is refusing contact with his family or supports. He is poorly engaged in treatment, and remains high risk. (2) Homicidal ideation -Patient admits to thoughts to harm his father. He denies a plan to act on these, but also states that if he spoke to his father he would "shoot him." We will continue to explore and assess the duty to warn. We will contact his therapist, Beryl Parsons at [facility], as records indicate that he had a list of people he wanted to harm, which we do not have access to here at the hospital. 09/10 -As discussed in treatment team on 09/07 and 09/09, duty to warn is present given patient's threats to shoot his father, with numerous risk factors that increase the risk he will act on violent thoughts, including history of violence towards other, personality disorder, schizoaffective disorder, hallucinations, noncompliance with treatment, substance abuse, male sex, single, unemployed, legal problems, homelessness, lack of supports, no outpatient providers, poor engagement in treatment, substance abuse, access to guns, and repeated statements of harming others. In addition, he has consistently refused to engage in safety planning, and has not been willing to allow staff to talk to the individual whom he says has his guns. Although he signed in voluntarily, he repeatedly states he doesn't need to be here and doesn't want to be here, and only signed in so that he would be able to keep his guns. As we do not have his father's name or contact information, and he will not allow us to speak to any other family members, duty to warn may be accomplished by notifying local police. (3) Schizoaffective disorder, depressive type -Initially patient would only agree to Thorazine when necessary, refusing to resume lurasidone due to perceived side effects, but after reviewing other antipsychotic options, he would like to try Haldol, as he felt it was helpful in the emergency room yesterday. We will start with 5 mg as needed for psychosis, and will also order benztropine 1 mg as needed for EPS. He is a poor historian for other antipsychotic trials, and will need to get records from recent hospitalizations and from outpatient psychiatrist, Dr. Willis. -Resume home dose of sertraline 100 mg daily, increased 250 mg daily for tomorrow to target depression. He was educated about the importance of taking this medication regularly in order for it to be effective. -Call Dr. Willis's office to review presenting symptoms and concerns about medications, specifically multiple controlled substances that he says he is taking, and had to leave a message is their office is closed today. -For now will continue Ambien 10 mg daily at bedtime when necessary, as review of the PDMP reveals a prescription from [facility] filled 08/25/2016, but this will need to be discussed with his outpatient psychiatrist, as he reports abusing it, and is also abusing multiple illicit substances. -Would not recommend he be prescribed controlled substances outside of the hospital. He says he is prescribed Adderall, but there is no prescription visible in the PDMP, and stimulants are contraindicated given his substance abuse. 09/09 - Continue Haldol 5 mg when necessary psychosis. Patient is refusing a regularly scheduled antipsychotic. - Spoke with staff at Dr. Willis's office, who state that the patient has never been seen there, although he does have an initial evaluation scheduled for 09/10. - Will stop Ambien as doesn't have active outpatient prescriber and has been abusing it, as well as multiple illicit substances. 09/10 - Patient now requesting to return to Thorazine, wanting 200mg tid. Advised we can start with 50mg tid and monitor his response, reviewed potential side effects and benefits. Will discontinue oral Haldol and start Thorazine. Continue Haldol IM prn. (4) Aggressive behavior -The patient reports a long history of aggression, likely consistent with antisocial personality disorder. He reports the clonidine has been helpful, so we'll continue his home dose. He was advised that he is expected to remain in control of his behavior here on the unit, and that threats or violence against others and destruction of property will not be tolerated, and charges may be pressed if he engages in this type of behavior. He expressed understanding. (5) Antisocial personality disorder Patient appears to meet full criteria for ASPD, as he reports a pervasive pattern of disregard for in violation of the rights of others, repeated accidents or grounds for her arrest, impulsivity and failure to plan ahead, irritability and aggressiveness with repeated fights, reckless disregard for his safety and the safety of others, repeated failure to sustain consistent work , and lack of remorse. This was also diagnosed during his inpatient admission at the [facility] in May 2016. 09/09 - patient has been dishonest here, lying about controlled substances that he says he's been prescribed, and is evasive and refuses to answer questions regarding his access to firearms. He is not a reliable historian, but is not allowing us to talk with anyone else he could give collateral information. (6) Alcohol abuse The patient's AUDIT score suggests problematic drinking (Zone III WHO). Brief intervention was offered and accepted Intervention was greater than 5 min in length. Brief interventions include: 1. Assess Readiness to Quit, 2. Advise: Help Patient to Reduce or Abstain from Alcohol, 3. Agree: Set Specific, Feasible Goals, 4. Assist: Anticipate barriers, Problem-Solving Solutions. Social work to 5. Arrange: Referrals to appropriate treatment. Summary of intervention: The patient is in precontemplation stage with regards to transtheoretical model of change. The patient is advised to decrease alcohol consumption due to depressant effects and risk of interactions with prescription medications. The patient has poor insight into his substance abuse and does not wish to change his behavior. Will coordinate care with his outpatient providers. (7) Cannabis abuse Reviewed risks of ongoing cannabis abuse, and recommendations for abstinence. (8) Opiate abuse, continuous Patient has been abusing heroin and has a history of overdosing on opiate pain medications. Would not recommend he be prescribed controlled substances outside of the hospital. Discharge / Aftercare Planning Primary Care Physician: Name: Dr Diaz and Dr Chavez Appointment Notes: as needed Psychiatrist: Name: . Date of Appointment: Sep 10, 2016 Therapist: Name: Erasto Phone Number: [phone] Visit Code E&M Code: 00613 Inventory Assets Strengths: "My intellect, so I've been told. My moral framework. Risk Factors Assessment Male: Yes : Yes /single/: Yes Access to guns: Yes (Says he has guns which are at another friend's house, but refuses to say who or where) Health problems: Yes Mental Health Diagnoses: Yes Substance use disorders: Yes Previous attempt: Yes Previous psychiatric stay: Yes Hopelessness: Yes Smoker: Yes Protective Factors Assessment Baptism beliefs: No : No Responsible for young children: No Employed: No Stable relationships: No Supportive family: No Good rapport with provider: No Absence of risk factors above: No Data Vital Signs Last 24 Hrs: Date Time Temp Pulse Resp B/P Pulse Ox O2 Delivery O2 Flow Rate FiO2 09/10/16 06:45 36.5 65 16 115/68 74 116/76 Meds Administered Last 24 Hrs: Meds Administered (Past 24Hrs) Medications (Trade) Dose Ordered Sig/Amada Route Start Time Stop Time Status Last Admin Dose Admin Zolpidem Tartrate (Ambien Tab) 10 mg HS PO 09/08/16 22:00 09/09/16 13:40 DC 09/08/16 21:17 10 MG Sertraline HCl (Zoloft Tab) 150 mg DAILY PO 09/09/16 09:00 10/09/16 08:59 09/10/16 09:04 150 MG
[2016-09-10] MEDS: CHLORPROMAZINE HCL 25 MG TAB PO SCH ×2 (13:42→21:01)
[2016-09-11 06:49] VITALS: BP_SYST 109; BP_SYST 111; BP_DIAS 69; BP_DIAS 74; PULSE 77; PULSE 82; TEMP 36.6
[2016-09-11] MEDS: ASPIRIN 81 MG ECTAB PO SCH (08:43)
[2016-09-11] MEDS: NAPROXEN 250 MG TAB PO SCH ×2 (08:43→20:51)
[2016-09-11] MEDS: CLONIDINE HCL 0.1 MG TAB PO SCH ×2 (08:43→20:51)
[2016-09-11] MEDS: CHLORPROMAZINE HCL 25 MG TAB PO SCH ×3 (08:44→20:51)
[2016-09-11] MEDS: SERTRALINE HCL 100 MG TAB PO SCH (08:44)
[2016-09-11] MEDS: NICOTINE 21 MG/24 HR TDSY EXT SCH ×2 (09:00→14:05)
--- NOTE | 2016-09-11 13:03 | Psychiatric Progress Notes ---
Progress Note Date of Service Sep 11, 2016. Interval History Beto Tinajero is a 31-year-old male with a self-reported history of schizoaffective disorder depressed type, as well as polysubstance abuse, who presented to the emergency room after he made statements about shooting himself and others led a therapy appointment at [facility]. There is a 302 petition completed by his therapist, but he signed in voluntarily. Information provided by the patient is considered to be partially reliable, and he is not always forthcoming with information. Chief Complaint "I'm fine". Subjective Patient was seen & assessed interval progress reviewed with Treatment Team. The patient continues to refuse to say who has the gun that he has access to. He says, "Well lets just say then that I don't have access to one.". He will not tell us who has it and doesn't feel that its important. He has not been able to get in contact with his mother and doesn't understand why we need to meet with her. He uses childlike reasoning to obscure the conversation, essentially saying that he will take back all of the statements, and therefore it isn't a problem. He denies SI/HI, aud/vis hallucinations. He does not think that he needs to be here and wants to be discharged. Review of Systems Constitutional: No chills, No fatigue, No fever, No problem reported, No sweats , No weakness, No weight loss ENT: No dental problems, No hearing loss, No nasal symptoms, No problem reported, No sore throat, No tinnitus, No trouble swallowing, No unusual epistaxis Respiratory: No cough, No dyspnea at rest, No dyspnea on exertion, No hemoptysis, No problem reported, No shortness of breath, No sputum, No wheezing Cardiovascular: No PND, No chest pain, No claudication, No edema, No orthopnea , No palpitations, No problem reported Abdomen: No GI bleeding, No constipation, No diarrhea, No nausea, No pain, No problem reported, No vomiting Musculoskeletal: No calf pain, No joint pain, No muscle pain, No problem reported, No swelling Neurologic: No balance problems, No memory loss, No numbness/tingling, No paralysis, No problem reported, No vertigo, No weakness Psychiatric: No anhedonism, No anxiety, No depression symptoms, No insomnia, No problem reported, No substance abuse Integumentary: No bleeding, No color change, No itch, No new/changing skin lesions, No problem reported, No rash Sleep Information Total Hours of Sleep: 8.00 Meal Information Percent of Breakfast Consumed: 100 Percent of Lunch Consumed: 80 Percent of Dinner Consumed: 100 Mental Status Exam During interview pt is: uncooperative Appearance: appropriately dressed, appropriately groomed, appeared stated age Eye contact is: good Motor behavior is: steady gait & station, no abnormal motor movements Speech: normal in rate, rhythm & volume, other (monotone, slightly slowed, minimal, mostly one-word answers) Affect: blunted Mood is: other ("tired") Thought process: goal directed Thought content: reality based without delusions Suicidal thought are: denied Homicidal thoughts are: denied Hallucinations: denies auditory, denies visual Cognition: memory grossly intact, attention grossly intact, language grossly intact Intelligence estimated to be: consistent with level of education Insight: impaired Judgement: impaired Impression Continues to show poor judgement by refusing to disclose the person who has the gun he previously reported access to. he is trying in a very childlike manner to manipulate his statements to take back his previous reports of homicidality and access to a gun. We are attempting to find aftercare for him, but multiple providers are refusing to provide treatment due to concerns for his homicidality. [facility] is reviewing his case. We have been unable to contact his mother for family meeting. Duty to Warn has been accomplished by notifying the police who will notify patient's father. Plan (1) Suicidal ideation -Every 15 minute checks for safety. -Encourage participation in groups and therapy to work on healthy coping skills and her discharge safety plan. -Reviewed recommendations with the patient to confirm that his guns are secured and that he will have access with them until he stabilized. He is refusing to allow staff to talk to the individual whom he says has his guns. 09/09 -Call placed to coordinate care with his therapist Beryl at [facility]. Message and callback number were left with staff. -Spoke to Beryl to review his case. Advised her of our treatment plan and concerns about his risk for violence and suicide, as well as the plan to discharge the duty to warn by contacting police, as he has not been cooperative with allowing us to talk to the person who has his guns, and is also refusing involvement of parents. Also advised her of aftercare issues as may not be able to be seen by Dr. Willis. 09/10 - Patient remains uncooperative with attempts to safety plan and plan to ensure guns are secured until he has stabilized. He is refusing contact with his family or supports. He is poorly engaged in treatment, and remains high risk. (2) Homicidal ideation -Patient admits to thoughts to harm his father. He denies a plan to act on these, but also states that if he spoke to his father he would "shoot him." We will continue to explore and assess the duty to warn. We will contact his therapist, Beryl Parsons at [place], as records indicate that he had a list of people he wanted to harm, which we do not have access to here at the hospital. 09/10 -As discussed in treatment team on 09/07 and 09/09, duty to warn is present given patient's threats to shoot his father, with numerous risk factors that increase the risk he will act on violent thoughts, including history of violence towards other, personality disorder, schizoaffective disorder, hallucinations, noncompliance with treatment, substance abuse, male sex, single, unemployed, legal problems, homelessness, lack of supports, no outpatient providers, poor engagement in treatment, substance abuse, access to guns, and repeated statements of harming others. In addition, he has consistently refused to engage in safety planning, and has not been willing to allow staff to talk to the individual whom he says has his guns. Although he signed in voluntarily, he repeatedly states he doesn't need to be here and doesn't want to be here, and only signed in so that he would be able to keep his guns. As we do not have his father's name or contact information, and he will not allow us to speak to any other family members, duty to warn may be accomplished by notifying local police. (3) Schizoaffective disorder, depressive type -Initially patient would only agree to Thorazine when necessary, refusing to resume lurasidone due to perceived side effects, but after reviewing other antipsychotic options, he would like to try Haldol, as he felt it was helpful in the emergency room yesterday. We will start with 5 mg as needed for psychosis, and will also order benztropine 1 mg as needed for EPS. He is a poor historian for other antipsychotic trials, and will need to get records from recent hospitalizations and from outpatient psychiatrist, Dr. Willis. -Resume home dose of sertraline 100 mg daily, increased 250 mg daily for tomorrow to target depression. He was educated about the importance of taking this medication regularly in order for it to be effective. -Call Dr. Willis's office to review presenting symptoms and concerns about medications, specifically multiple controlled substances that he says he is taking, and had to leave a message is their office is closed today. -For now will continue Ambien 10 mg daily at bedtime when necessary, as review of the PDMP reveals a prescription from [facility] filled 08/25/2016, but this will need to be discussed with his outpatient psychiatrist, as he reports abusing it, and is also abusing multiple illicit substances. -Would not recommend he be prescribed controlled substances outside of the hospital. He says he is prescribed Adderall, but there is no prescription visible in the PDMP, and stimulants are contraindicated given his substance abuse. 09/09 - Continue Haldol 5 mg when necessary psychosis. Patient is refusing a regularly scheduled antipsychotic. - Spoke with staff at Dr. Willis's office, who state that the patient has never been seen there, although he does have an initial evaluation scheduled for 09/10. - Will stop Ambien as doesn't have active outpatient prescriber and has been abusing it, as well as multiple illicit substances. 09/10 - Patient now requesting to return to Thorazine, wanting 200mg tid. Advised we can start with 50mg tid and monitor his response, reviewed potential side effects and benefits. Will discontinue oral Haldol and start Thorazine. Continue Haldol IM prn. (4) Aggressive behavior -The patient reports a long history of aggression, likely consistent with antisocial personality disorder. He reports the clonidine has been helpful, so we'll continue his home dose. He was advised that he is expected to remain in control of his behavior here on the unit, and that threats or violence against others and destruction of property will not be tolerated, and charges may be pressed if he engages in this type of behavior. He expressed understanding. (5) Antisocial personality disorder Patient appears to meet full criteria for ASPD, as he reports a pervasive pattern of disregard for in violation of the rights of others, repeated accidents or grounds for her arrest, impulsivity and failure to plan ahead, irritability and aggressiveness with repeated fights, reckless disregard for his safety and the safety of others, repeated failure to sustain consistent work , and lack of remorse. This was also diagnosed during his inpatient admission at the [facility] in May 2016. 09/09 - patient has been dishonest here, lying about controlled substances that he says he's been prescribed, and is evasive and refuses to answer questions regarding his access to firearms. He is not a reliable historian, but is not allowing us to talk with anyone else he could give collateral information. (6) Alcohol abuse The patient's AUDIT score suggests problematic drinking (Zone III WHO). Brief intervention was offered and accepted Intervention was greater than 5 min in length. Brief interventions include: 1. Assess Readiness to Quit, 2. Advise: Help Patient to Reduce or Abstain from Alcohol, 3. Agree: Set Specific, Feasible Goals, 4. Assist: Anticipate barriers, Problem-Solving Solutions. Social work to 5. Arrange: Referrals to appropriate treatment. Summary of intervention: The patient is in precontemplation stage with regards to transtheoretical model of change. The patient is advised to decrease alcohol consumption due to depressant effects and risk of interactions with prescription medications. The patient has poor insight into his substance abuse and does not wish to change his behavior. Will coordinate care with his outpatient providers. (7) Cannabis abuse Reviewed risks of ongoing cannabis abuse, and recommendations for abstinence. (8) Opiate abuse, continuous Patient has been abusing heroin and has a history of overdosing on opiate pain medications. Would not recommend he be prescribed controlled substances outside of the hospital. Discharge / Aftercare Planning Primary Care Physician: Name: Dr Diaz and Dr Chavez Appointment Notes: as needed Psychiatrist: Name: . Date of Appointment: Sep 10, 2016 Therapist: Name: Erasto Phone Number: [phone] Visit Code E&M Code: 31532 Inventory Assets Strengths: "My intellect, so I've been told. My moral framework. Risk Factors Assessment Male: Yes : Yes /single/: Yes Access to guns: Yes (Says he has guns which are at another friend's house, but refuses to say who or where) Health problems: Yes Mental Health Diagnoses: Yes Substance use disorders: Yes Previous attempt: Yes Previous psychiatric stay: Yes Hopelessness: Yes Smoker: Yes Protective Factors Assessment [employer] beliefs: No : No Responsible for young children: No Employed: No Stable relationships: No Supportive family: No Good rapport with provider: No Absence of risk factors above: No Data Vital Signs Last 24 Hrs: Date Time Temp Pulse Resp B/P Pulse Ox O2 Delivery O2 Flow Rate FiO2 09/11/16 06:49 36.6 77 16 109/69 82 111/74 Meds Administered Last 24 Hrs: Meds Administered (Past 24Hrs) Medications (Trade) Dose Ordered Sig/Amada Route Start Time Stop Time Status Last Admin Dose Admin Chlorpromazine HCl (Thorazine Tab) 50 mg TID PO 09/10/16 14:00 10/10/16 13:59 09/11/16 08:44 50 MG Lab Results Last 24 Hrs: 09/07/16 12:45 Red Blood Count 4.51, Mean Corpuscular Volume 91.4, Mean Corpuscular Hemoglobin 31.3, Mean Corpuscular Hemoglobin Concent 34.2, Mean Platelet Volume 9.5, Neutrophils (%) (Auto) 49.7, Lymphocytes (%) (Auto) 29.7, Monocytes (%) (Auto) 9.6, Eosinophils (%) (Auto) 9.9, Basophils (%) (Auto) 0.7, Neutrophils # (Auto) 3.78, Lymphocytes # (Auto) 2.26, Monocytes # (Auto) 0.73, Eosinophils # (Auto) 0.75, Basophils # (Auto) 0.05 09/07/16 12:45 Test 09/07/16 12:15 09/07/16 12:45 Urine Color YELLOW Urine Appearance CLEAR (CLEAR) Urine pH 7.5 (4.5-7.5) Urine Specific [place] 1.005 (1.000-1.030) Urine Protein NEG (NEG) Urine Glucose (UA) NEG (NEG) Urine Ketones NEG (NEG) Urine Occult Blood NEG (NEG) Urine Nitrite NEG (NEG) Urine Bilirubin NEG (NEG) Urine Urobilinogen NEG (NEG) Urine Leukocyte Esterase NEG (NEG) Urine Opiates Screen NEG (NEG) Urine Methadone, Qualitative NEG (NEG) Urine Barbiturates NEG (NEG) Urine Phencyclidine (PCP) Level NEG (NEG) Ur Amphetamine/Methamphetamine NEG (NEG) MDMA (Ecstasy) Screen NEG (NEG) Urine Benzodiazepines Screen NEG (NEG) Urine Cocaine Metabolite NEG (NEG) Urine Marijuana (THC) POS (NEG) Urine Marijuana (THC Carboxy Acid) 38 NG/ML (CUTOFF=5) White Blood Count 7.60 K/uL (4.8-10.8) Red Blood Count 4.51 M/uL (4.7-6.1) Hemoglobin 14.1 g/dL (14.0-18.0) Hematocrit 41.2 % (42-52) Mean Corpuscular Volume 91.4 fL (80-100) Mean Corpuscular Hemoglobin 31.3 pg (25-34) Mean Corpuscular Hemoglobin Concent 34.2 g/dl (32-36) Platelet Count 237 K/uL (130-400) Mean Platelet Volume 9.5 fL (7.4-10.4) Neutrophils (%) (Auto) 49.7 % Lymphocytes (%) (Auto) 29.7 % Monocytes (%) (Auto) 9.6 % Eosinophils (%) (Auto) 9.9 % Basophils (%) (Auto) 0.7 % Neutrophils # (Auto) 3.78 K/uL (1.4-6.5) Lymphocytes # (Auto) 2.26 K/uL (1.2-3.4) Monocytes # (Auto) 0.73 K/uL (0.11-0.59) Eosinophils # (Auto) 0.75 K/uL (0-0.5) Basophils # (Auto) 0.05 K/uL (0-0.2) RDW Standard Deviation 45.1 fL (36.4-46.3) RDW Coefficient of Variation 13.5 % (11.5-14.5) Immature Granulocyte % (Auto) 0.4 % Immature Granulocyte # (Auto) 0.03 K/uL (0.00-0.02) Anion Gap 10.0 mmol/L (3-11) Est Creatinine Clear Calc Drug Dose 122.6 ml/min Estimated GFR () 135.8 Estimated GFR (Non- 117.2 BUN/Creatinine Ratio 19.0 (10-20) Calcium Level 8.5 mg/dl (8.5-10.1) Total Bilirubin 0.2 mg/dl (0.2-1) Direct Bilirubin < 0.1 mg/dl (0-0.2) Aspartate Amino Transf (AST/SGOT) 31 U/L (15-37) Alanine Aminotransferase (ALT/SGPT) 55 U/L (12-78) Alkaline Phosphatase 136 U/L (45-117) Total Protein 7.4 gm/dl (6.4-8.2) Albumin 4.0 gm/dl (3.4-5.0) Globulin 3.4 gm/dl (2.5-4.0) Albumin/Globulin Ratio 1.2 (0.9-2) Thyroid Stimulating Hormone (TSH) 2.590 uIu/ml (0.300-4.500) Ethyl Alcohol mg/dL < 3.0 mg/dl (0-3)
[2016-09-11] MEDS ORDERED: NURSING VERBAL MED ORDER ONE (19:45)
[2016-09-11] MEDS: hydrOXYzine HCL 25 MG TAB PO PRN ×2 (21:09→21:46)
[2016-09-12 06:54] VITALS: BP_SYST 109; BP_SYST 93; BP_DIAS 60; BP_DIAS 70; PULSE 67; PULSE 84; TEMP 36.8
[2016-09-12] MEDS: ASPIRIN 81 MG ECTAB PO SCH (08:42)
[2016-09-12] MEDS: NAPROXEN 250 MG TAB PO SCH ×2 (08:42→21:09)
[2016-09-12] MEDS: CHLORPROMAZINE HCL 25 MG TAB PO SCH ×2 (08:43→14:04)
[2016-09-12] MEDS: SERTRALINE HCL 100 MG TAB PO SCH (08:43)
[2016-09-12] MEDS: CLONIDINE HCL 0.1 MG TAB PO SCH ×2 (08:47→21:10)
[2016-09-12] MEDS: NICOTINE 21 MG/24 HR TDSY EXT SCH (08:47)
--- NOTE | 2016-09-12 15:12 | Psychiatric Progress Notes ---
Progress Note Date of Service Sep 12, 2016. Interval History Beto Tinajero is a 31-year-old male with a self-reported history of schizoaffective disorder depressed type, as well as polysubstance abuse, who presented to the emergency room after he made statements about shooting himself and others led a therapy appointment at [facility]. There is a 302 petition completed by his therapist, but he signed in voluntarily. Information provided by the patient is considered to be partially reliable, and he is not always forthcoming with information. Chief Complaint "I'm good". Subjective Patient was seen & assessed interval progress reviewed with Treatment Team. Staff had contacted myself during the night last night due to increased agitation and Thorazine dose was increased. Patient reports that he is slightly less agitated on dose of Thorazine that was increased. Patient is tolerating medication well and no significant side effects. He is minimizing suicidal and homicidal statements that he had made prior to hospitalization saying that he had not really meant that he was going to harm anyone and that he was just frustrated with his current situation. Currently denies any thoughts to harm self or others. Patient was very focussed on repeatedly asking for return of Ambien which records indicate that he has a history of abusing as well as a history of substance abuse. Review of Systems Constitutional: No chills, No fatigue, No fever, No problem reported, No sweats , No weakness, No weight loss ENT: No dental problems, No hearing loss, No nasal symptoms, No problem reported, No sore throat, No tinnitus, No trouble swallowing, No unusual epistaxis Respiratory: No cough, No dyspnea at rest, No dyspnea on exertion, No hemoptysis, No problem reported, No shortness of breath, No sputum, No wheezing Cardiovascular: No PND, No chest pain, No claudication, No edema, No orthopnea , No palpitations, No problem reported Abdomen: No GI bleeding, No constipation, No diarrhea, No nausea, No pain, No problem reported, No vomiting Musculoskeletal: No calf pain, No joint pain, No muscle pain, No problem reported, No swelling Neurologic: No balance problems, No memory loss, No numbness/tingling, No paralysis, No problem reported, No vertigo, No weakness Psychiatric: + problem reported (agitation) Integumentary: No bleeding, No color change, No itch, No new/changing skin lesions, No problem reported, No rash Sleep Information Total Hours of Sleep: 7.50 Meal Information Percent of Breakfast Consumed: 100 Percent of Lunch Consumed: 100 Percent of Dinner Consumed: 100 Mental Status Exam During interview pt is: uncooperative Appearance: appropriately dressed, appropriately groomed, appeared stated age Eye contact is: good Motor behavior is: steady gait & station, no abnormal motor movements Speech: normal in rate, rhythm & volume, other (monotone, slightly slowed, minimal, mostly one-word answers) Affect: blunted Mood is: other ("tired") Thought process: goal directed Thought content: reality based without delusions Suicidal thought are: denied Homicidal thoughts are: denied Hallucinations: denies auditory, denies visual Cognition: memory grossly intact, attention grossly intact, language grossly intact Intelligence estimated to be: consistent with level of education Insight: impaired Judgement: impaired Impression Continues to show poor judgement by refusing to disclose the person who has the gun he previously reported access to. he is trying in a very childlike manner to manipulate his statements to take back his previous reports of homicidality and access to a gun. We are attempting to find aftercare for him, but multiple providers are refusing to provide treatment due to concerns for his homicidality. [facility] is reviewing his case. We have been unable to contact his mother for family meeting. Duty to Warn has been accomplished by notifying the police who will notify patient's father. Plan (1) Suicidal ideation -Every 15 minute checks for safety. -Encourage participation in groups and therapy to work on healthy coping skills and her discharge safety plan. -Reviewed recommendations with the patient to confirm that his guns are secured and that he will have access with them until he stabilized. He is refusing to allow staff to talk to the individual whom he says has his guns. 09/09 -Call placed to coordinate care with his therapist Beryl at [facility]. Message and callback number were left with staff. -Spoke to Beryl to review his case. Advised her of our treatment plan and concerns about his risk for violence and suicide, as well as the plan to discharge the duty to warn by contacting police, as he has not been cooperative with allowing us to talk to the person who has his guns, and is also refusing involvement of parents. Also advised her of aftercare issues as may not be able to be seen by Dr. Willis. 09/10 - Patient remains uncooperative with attempts to safety plan and plan to ensure guns are secured until he has stabilized. He is refusing contact with his family or supports. He is poorly engaged in treatment, and remains high risk. (2) Homicidal ideation -Patient admits to thoughts to harm his father. He denies a plan to act on these, but also states that if he spoke to his father he would "shoot him." We will continue to explore and assess the duty to warn. We will contact his therapist, Beryl Parsons at [facility], as records indicate that he had a list of people he wanted to harm, which we do not have access to here at the hospital. 09/10 -As discussed in treatment team on 09/07 and 09/09, duty to warn is present given patient's threats to shoot his father, with numerous risk factors that increase the risk he will act on violent thoughts, including history of violence towards other, personality disorder, schizoaffective disorder, hallucinations, noncompliance with treatment, substance abuse, male sex, single, unemployed, legal problems, homelessness, lack of supports, no outpatient providers, poor engagement in treatment, substance abuse, access to guns, and repeated statements of harming others. In addition, he has consistently refused to engage in safety planning, and has not been willing to allow staff to talk to the individual whom he says has his guns. Although he signed in voluntarily, he repeatedly states he doesn't need to be here and doesn't want to be here, and only signed in so that he would be able to keep his guns. As we do not have his father's name or contact information, and he will not allow us to speak to any other family members, duty to warn may be accomplished by notifying local police. (3) Schizoaffective disorder, depressive type -Initially patient would only agree to Thorazine when necessary, refusing to resume lurasidone due to perceived side effects, but after reviewing other antipsychotic options, he would like to try Haldol, as he felt it was helpful in the emergency room yesterday. We will start with 5 mg as needed for psychosis, and will also order benztropine 1 mg as needed for EPS. He is a poor historian for other antipsychotic trials, and will need to get records from recent hospitalizations and from outpatient psychiatrist, Dr. Willis. -Resume home dose of sertraline 100 mg daily, increased 250 mg daily for tomorrow to target depression. He was educated about the importance of taking this medication regularly in order for it to be effective. -Call Dr. Willis's office to review presenting symptoms and concerns about medications, specifically multiple controlled substances that he says he is taking, and had to leave a message is their office is closed today. -For now will continue Ambien 10 mg daily at bedtime when necessary, as review of the PDMP reveals a prescription from [facility] filled 08/25/2016, but this will need to be discussed with his outpatient psychiatrist, as he reports abusing it, and is also abusing multiple illicit substances. -Would not recommend he be prescribed controlled substances outside of the hospital. He says he is prescribed Adderall, but there is no prescription visible in the PDMP, and stimulants are contraindicated given his substance abuse. 09/09 - Continue Haldol 5 mg when necessary psychosis. Patient is refusing a regularly scheduled antipsychotic. - Spoke with staff at Dr. Willis's office, who state that the patient has never been seen there, although he does have an initial evaluation scheduled for 09/10. - Will stop Ambien as doesn't have active outpatient prescriber and has been abusing it, as well as multiple illicit substances. 09/10 - Patient now requesting to return to Thorazine, wanting 200mg tid. Advised we can start with 50mg tid and monitor his response, reviewed potential side effects and benefits. Will discontinue oral Haldol and start Thorazine. Continue Haldol IM prn. 09/12 - Patient tolerating Thorazine 75mg TID well and slight calming effect. Will increase Thorazine to 100mg TID to further stabilize patient's psychosis. (4) Aggressive behavior -The patient reports a long history of aggression, likely consistent with antisocial personality disorder. He reports the clonidine has been helpful, so we'll continue his home dose. He was advised that he is expected to remain in control of his behavior here on the unit, and that threats or violence against others and destruction of property will not be tolerated, and charges may be pressed if he engages in this type of behavior. He expressed understanding. (5) Antisocial personality disorder Patient appears to meet full criteria for ASPD, as he reports a pervasive pattern of disregard for in violation of the rights of others, repeated accidents or grounds for her arrest, impulsivity and failure to plan ahead, irritability and aggressiveness with repeated fights, reckless disregard for his safety and the safety of others, repeated failure to sustain consistent work , and lack of remorse. This was also diagnosed during his inpatient admission at the [facility] in May 2016. 09/09 - patient has been dishonest here, lying about controlled substances that he says he's been prescribed, and is evasive and refuses to answer questions regarding his access to firearms. He is not a reliable historian, but is not allowing us to talk with anyone else he could give collateral information. (6) Alcohol abuse The patient's AUDIT score suggests problematic drinking (Zone III WHO). Brief intervention was offered and accepted Intervention was greater than 5 min in length. Brief interventions include: 1. Assess Readiness to Quit, 2. Advise: Help Patient to Reduce or Abstain from Alcohol, 3. Agree: Set Specific, Feasible Goals, 4. Assist: Anticipate barriers, Problem-Solving Solutions. Social work to 5. Arrange: Referrals to appropriate treatment. Summary of intervention: The patient is in precontemplation stage with regards to transtheoretical model of change. The patient is advised to decrease alcohol consumption due to depressant effects and risk of interactions with prescription medications. The patient has poor insight into his substance abuse and does not wish to change his behavior. Will coordinate care with his outpatient providers. (7) Cannabis abuse Reviewed risks of ongoing cannabis abuse, and recommendations for abstinence. (8) Opiate abuse, continuous Patient has been abusing heroin and has a history of overdosing on opiate pain medications. Would not recommend he be prescribed controlled substances outside of the hospital. Discharge / Aftercare Planning Primary Care Physician: Name: Dr Diaz and Dr Chavez Appointment Notes: as needed Psychiatrist: Name: . Date of Appointment: Sep 10, 2016 Therapist: Name: Erasto Phone Number: [phone] Visit Code E&M Code: 47242 Inventory Assets Strengths: "My intellect, so I've been told. My moral framework. Risk Factors Assessment Male: Yes : Yes /single/: Yes Access to guns: Yes (Says he has guns which are at another friend's house, but refuses to say who or where) Health problems: Yes Mental Health Diagnoses: Yes Substance use disorders: Yes Previous attempt: Yes Previous psychiatric stay: Yes Hopelessness: Yes Smoker: Yes Protective Factors Assessment Yazidi beliefs: No : No Responsible for young children: No Employed: No Stable relationships: No Supportive family: No Good rapport with provider: No Absence of risk factors above: No Data Vital Signs Last 24 Hrs: Date Time Temp Pulse Resp B/P Pulse Ox O2 Delivery O2 Flow Rate FiO2 09/12/16 06:54 36.8 67 16 109/70 84 93/60 Meds Administered Last 24 Hrs: Meds Administered (Past 24Hrs) Medications (Trade) Dose Ordered Sig/Amada Route Start Time Stop Time Status Last Admin Dose Admin Chlorpromazine HCl (Thorazine Tab) 75 mg TID PO 09/11/16 22:00 09/12/16 14:55 DC 09/12/16 14:04 75 MG
[2016-09-12] MEDS ORDERED: NURSING VERBAL MED ORDER ONE (19:00)
[2016-09-12] MEDS ORDERED: NICOTINE POLACRILEX 2 MG GUM MT PRN (19:15)
[2016-09-12 21:07] VITALS: BP 120/78; PULSE 80
[2016-09-12] MEDS: CHLORPROMAZINE HCL 100 MG TAB PO SCH (21:09)
[2016-09-12] MEDS: hydrOXYzine HCL 25 MG TAB PO PRN ×2 (21:13→21:59)
[2016-09-13] MEDS: BENZTROPINE MESYLATE 1 MG TAB PO PRN ×2 (00:35→21:39)
[2016-09-13 06:46] VITALS: BP_SYST 91; BP_SYST 99; BP_DIAS 55; BP_DIAS 64; PULSE 65; PULSE 72; TEMP 36.6
[2016-09-13] MEDS: CLONIDINE HCL 0.1 MG TAB PO SCH ×2 (08:36→21:35)
[2016-09-13] MEDS: NICOTINE 21 MG/24 HR TDSY EXT SCH (08:36)
[2016-09-13] MEDS: ASPIRIN 81 MG ECTAB PO SCH (08:36)
[2016-09-13] MEDS: CHLORPROMAZINE HCL 100 MG TAB PO SCH ×3 (08:37→21:37)
[2016-09-13] MEDS: NAPROXEN 250 MG TAB PO SCH ×2 (08:37→21:36)
[2016-09-13] MEDS: SERTRALINE HCL 100 MG TAB PO SCH (08:37)
--- NOTE | 2016-09-13 13:28 | Psychiatric Progress Notes ---
Progress Note Date of Service Sep 13, 2016. Interval History Beto Tinajero is a 31-year-old male with a self-reported history of schizoaffective disorder depressed type, as well as polysubstance abuse, who presented to the emergency room after he made statements about shooting himself and others led a therapy appointment at [facility]. There is a 302 petition completed by his therapist, but he signed in voluntarily. Information provided by the patient is considered to be partially reliable, and he is not always forthcoming with information. Chief Complaint "Okay". Subjective Patient was seen & assessed interval progress reviewed with Treatment Team. Patient reports that he is feeling somewhat calmer during the daytime. He is feeling more restless at night time and he attributes this to Vistaril side effect. He denies any thoughts to harm himself or others. Denies having a gun or having direct access to one. "I really don't like my father but I don't want to kill him." Denies auditory or visual hallucinations or paranoia. Review of Systems Constitutional: No chills, No fatigue, No fever, No problem reported, No sweats , No weakness, No weight loss ENT: No dental problems, No hearing loss, No nasal symptoms, No problem reported, No sore throat, No tinnitus, No trouble swallowing, No unusual epistaxis Respiratory: No cough, No dyspnea at rest, No dyspnea on exertion, No hemoptysis, No problem reported, No shortness of breath, No sputum, No wheezing Cardiovascular: No PND, No chest pain, No claudication, No edema, No orthopnea , No palpitations, No problem reported Abdomen: No GI bleeding, No constipation, No diarrhea, No nausea, No pain, No problem reported, No vomiting Musculoskeletal: No calf pain, No joint pain, No muscle pain, No problem reported, No swelling Neurologic: No balance problems, No memory loss, No numbness/tingling, No paralysis, No problem reported, No vertigo, No weakness Integumentary: No bleeding, No color change, No itch, No new/changing skin lesions, No problem reported, No rash Sleep Information Total Hours of Sleep: 5.00 Meal Information Percent of Breakfast Consumed: 100 Percent of Lunch Consumed: 100 Percent of Dinner Consumed: 100 Mental Status Exam During interview pt is: cooperative Appearance: appropriately dressed, appropriately groomed, appeared stated age Eye contact is: good Motor behavior is: steady gait & station, no abnormal motor movements Speech: normal in rate, rhythm & volume, other (monotone, slightly slowed, minimal, mostly one-word answers) Affect: blunted Mood is: irritable Thought process: goal directed Thought content: reality based without delusions Suicidal thought are: denied Homicidal thoughts are: denied Hallucinations: denies auditory, denies visual Cognition: memory grossly intact, attention grossly intact, language grossly intact Intelligence estimated to be: consistent with level of education Insight: impaired Judgement: impaired Impression Continues to show poor judgement by refusing to disclose the person who has the gun he previously reported access to. he is trying in a very childlike manner to manipulate his statements to take back his previous reports of homicidality and access to a gun. We are attempting to find aftercare for him, but multiple providers are refusing to provide treatment due to concerns for his homicidality. [facility] is reviewing his case. We have been unable to contact his mother for family meeting. Duty to Warn has been accomplished by notifying the police who will notify patient's father. Plan (1) Suicidal ideation -Every 15 minute checks for safety. -Encourage participation in groups and therapy to work on healthy coping skills and her discharge safety plan. -Reviewed recommendations with the patient to confirm that his guns are secured and that he will have access with them until he stabilized. He is refusing to allow staff to talk to the individual whom he says has his guns. 09/09 -Call placed to coordinate care with his therapist Beryl at [facility]. Message and callback number were left with staff. -Spoke to Beryl to review his case. Advised her of our treatment plan and concerns about his risk for violence and suicide, as well as the plan to discharge the duty to warn by contacting police, as he has not been cooperative with allowing us to talk to the person who has his guns, and is also refusing involvement of parents. Also advised her of aftercare issues as may not be able to be seen by Dr. Willis. 09/10 - Patient remains uncooperative with attempts to safety plan and plan to ensure guns are secured until he has stabilized. He is refusing contact with his family or supports. He is poorly engaged in treatment, and remains high risk. (2) Homicidal ideation -Patient admits to thoughts to harm his father. He denies a plan to act on these, but also states that if he spoke to his father he would "shoot him." We will continue to explore and assess the duty to warn. We will contact his therapist, Beryl Parsons at [facility], as records indicate that he had a list of people he wanted to harm, which we do not have access to here at the hospital. 09/10 -As discussed in treatment team on 09/07 and 09/09, duty to warn is present given patient's threats to shoot his father, with numerous risk factors that increase the risk he will act on violent thoughts, including history of violence towards other, personality disorder, schizoaffective disorder, hallucinations, noncompliance with treatment, substance abuse, male sex, single, unemployed, legal problems, homelessness, lack of supports, no outpatient providers, poor engagement in treatment, substance abuse, access to guns, and repeated statements of harming others. In addition, he has consistently refused to engage in safety planning, and has not been willing to allow staff to talk to the individual whom he says has his guns. Although he signed in voluntarily, he repeatedly states he doesn't need to be here and doesn't want to be here, and only signed in so that he would be able to keep his guns. As we do not have his father's name or contact information, and he will not allow us to speak to any other family members, duty to warn may be accomplished by notifying local police. (3) Schizoaffective disorder, depressive type -Initially patient would only agree to Thorazine when necessary, refusing to resume lurasidone due to perceived side effects, but after reviewing other antipsychotic options, he would like to try Haldol, as he felt it was helpful in the emergency room yesterday. We will start with 5 mg as needed for psychosis, and will also order benztropine 1 mg as needed for EPS. He is a poor historian for other antipsychotic trials, and will need to get records from recent hospitalizations and from outpatient psychiatrist, Dr. Willis. -Resume home dose of sertraline 100 mg daily, increased 250 mg daily for tomorrow to target depression. He was educated about the importance of taking this medication regularly in order for it to be effective. -Call Dr. Willis's office to review presenting symptoms and concerns about medications, specifically multiple controlled substances that he says he is taking, and had to leave a message is their office is closed today. -For now will continue Ambien 10 mg daily at bedtime when necessary, as review of the PDMP reveals a prescription from [facility] filled 08/25/2016, but this will need to be discussed with his outpatient psychiatrist, as he reports abusing it, and is also abusing multiple illicit substances. -Would not recommend he be prescribed controlled substances outside of the hospital. He says he is prescribed Adderall, but there is no prescription visible in the PDMP, and stimulants are contraindicated given his substance abuse. 09/09 - Continue Haldol 5 mg when necessary psychosis. Patient is refusing a regularly scheduled antipsychotic. - Spoke with staff at Dr. Willis's office, who state that the patient has never been seen there, although he does have an initial evaluation scheduled for 09/10. - Will stop Ambien as doesn't have active outpatient prescriber and has been abusing it, as well as multiple illicit substances. 09/10 - Patient now requesting to return to Thorazine, wanting 200mg tid. Advised we can start with 50mg tid and monitor his response, reviewed potential side effects and benefits. Will discontinue oral Haldol and start Thorazine. Continue Haldol IM prn. 09/12 - Patient tolerating Thorazine 75mg TID well and slight calming effect. Will increase Thorazine to 100mg TID to further stabilize patient's psychosis. (4) Aggressive behavior -The patient reports a long history of aggression, likely consistent with antisocial personality disorder. He reports the clonidine has been helpful, so we'll continue his home dose. He was advised that he is expected to remain in control of his behavior here on the unit, and that threats or violence against others and destruction of property will not be tolerated, and charges may be pressed if he engages in this type of behavior. He expressed understanding. (5) Antisocial personality disorder Patient appears to meet full criteria for ASPD, as he reports a pervasive pattern of disregard for in violation of the rights of others, repeated accidents or grounds for her arrest, impulsivity and failure to plan ahead, irritability and aggressiveness with repeated fights, reckless disregard for his safety and the safety of others, repeated failure to sustain consistent work , and lack of remorse. This was also diagnosed during his inpatient admission at the [facility] in May 2016. 09/09 - patient has been dishonest here, lying about controlled substances that he says he's been prescribed, and is evasive and refuses to answer questions regarding his access to firearms. He is not a reliable historian, but is not allowing us to talk with anyone else he could give collateral information. (6) Alcohol abuse The patient's AUDIT score suggests problematic drinking (Zone III WHO). Brief intervention was offered and accepted Intervention was greater than 5 min in length. Brief interventions include: 1. Assess Readiness to Quit, 2. Advise: Help Patient to Reduce or Abstain from Alcohol, 3. Agree: Set Specific, Feasible Goals, 4. Assist: Anticipate barriers, Problem-Solving Solutions. Social work to 5. Arrange: Referrals to appropriate treatment. Summary of intervention: The patient is in precontemplation stage with regards to transtheoretical model of change. The patient is advised to decrease alcohol consumption due to depressant effects and risk of interactions with prescription medications. The patient has poor insight into his substance abuse and does not wish to change his behavior. Will coordinate care with his outpatient providers. (7) Cannabis abuse Reviewed risks of ongoing cannabis abuse, and recommendations for abstinence. (8) Opiate abuse, continuous Patient has been abusing heroin and has a history of overdosing on opiate pain medications. Would not recommend he be prescribed controlled substances outside of the hospital. Discharge / Aftercare Planning Primary Care Physician: Name: Dr Diaz and Dr Chavez Appointment Notes: as needed Psychiatrist: Name: . Date of Appointment: Sep 10, 2016 Therapist: Name: Erasto Phone Number: [phone] Visit Code E&M Code: 68013 Inventory Assets Strengths: "My intellect, so I've been told. My moral framework. Risk Factors Assessment Male: Yes : Yes /single/: Yes Access to guns: Yes (Says he has guns which are at another friend's house, but refuses to say who or where) Health problems: Yes Mental Health Diagnoses: Yes Substance use disorders: Yes Previous attempt: Yes Previous psychiatric stay: Yes Hopelessness: Yes Smoker: Yes Protective Factors Assessment Scientologist beliefs: No : No Responsible for young children: No Employed: No Stable relationships: No Supportive family: No Good rapport with provider: No Absence of risk factors above: No Data Vital Signs Last 24 Hrs: Date Time Temp Pulse Resp B/P Pulse Ox O2 Delivery O2 Flow Rate FiO2 09/13/16 06:46 36.6 65 16 91/55 72 99/64 09/12/16 21:07 80 14 120/78 Meds Administered Last 24 Hrs: Meds Administered (Past 24Hrs) Medications (Trade) Dose Ordered Sig/Amada Route Start Time Stop Time Status Last Admin Dose Admin Chlorpromazine HCl (Thorazine Tab) 75 mg TID PO 09/11/16 22:00 09/12/16 14:55 DC 09/12/16 14:04 75 MG Chlorpromazine HCl (Thorazine Tab) 100 mg TID PO 09/12/16 22:00 10/12/16 21:59 09/13/16 08:37 100 MG Nicotine Polacrilex (Nicorette 2MG Gum) 1 piece Q2H PRN MT 09/12/16 19:15 10/12/16 19:14 09/12/16 19:10 1 PIECE
[2016-09-13] MEDS: hydrOXYzine HCL 25 MG TAB PO PRN (21:40)
[2016-09-14] MEDS: hydrOXYzine HCL 25 MG TAB PO PRN (00:54)
[2016-09-14 07:04] VITALS: BP_SYST 110; BP_SYST 92; BP_DIAS 59; BP_DIAS 69; PULSE 76; PULSE 92; TEMP 36.8
[2016-09-14] MEDS: NICOTINE 21 MG/24 HR TDSY EXT SCH ×2 (08:48→12:34)
[2016-09-14] MEDS: NAPROXEN 250 MG TAB PO SCH (08:50)
[2016-09-14] MEDS: ASPIRIN 81 MG ECTAB PO SCH (08:50)
[2016-09-14] MEDS: SERTRALINE HCL 100 MG TAB PO SCH (08:51)
[2016-09-14] MEDS: CHLORPROMAZINE HCL 100 MG TAB PO SCH (08:51)
[2016-09-14 08:55] VITALS: BP 110/70; PULSE 77
[2016-09-14] MEDS: CLONIDINE HCL 0.1 MG TAB PO SCH (08:55)
[2016-09-14] MEDS ORDERED: SERT-234 PO (11:29)
--- NOTE | 2016-09-14 11:49 | Discharge Instructions ---
Discharge Information Report Includes Report will include the: Discharge Instructions & Summary Admission Admission Date / Time: Sep 07, 2016 at 14:41 Reason for Admission: Schizoaffectve Disorder Discharge Discharge Diagnosis / Problem: Schizoaffective disorder, antisocial personality disorder, substance abuse. Condition at Discharge: Fair Discharge Goals Goal(s): Improve function, Improve disease control, Learn about illness, Therapeutic intervention Activity Recommendations Activity Limitations: per Instructions/Follow-up section . Instructions / Follow-Up Instructions / Follow-Up . SPECIAL CARE INSTRUCTIONS: 1. Follow through with your scheduled aftercare appointments. If unable to keep an appointment, please call to reschedule. We recommend you follow up with a psychaitrist, therapist, block and case maker, and for substance abuse treatment. 2. Take your medication only as prescribed. Medication should not be changed or stopped without the approval of your doctor. In the event of worsening symptoms or concerns about side effects, contact your doctor immediately. 3. Utilize new healthy coping skills, anger management skills, and stress management skills learned during your hospitalization. Journal feelings and process them with a support person. Identify stressors or situations that may result in relapse, deterioration or inappropriate behaviors and develop a plan to deal with those issues. 4. If your coping skills are ineffective and you are in crisis, contact your outpatient providers for direction. If unable to reach your providers, please call the CAN HELP LINE AT or go to the closest Emergency Room. 5. You should not drink alcohol or take drugs, including illicit drugs, prescription medications that are not yours, or any medications that are addictive or abusable. 6. You have been provided with the Mental Health Advance Directives Pamphlet for your review. AFTERCARE APPOINTMENTS: * Please call your insurance company prior to your scheduled appointment to confirm your aftercare providers are covered. Take your insurance information to your appointments. . Discharge / Aftercare Planning Primary Care Physician: Name: Dr Diaz and Dr Chavez Appointment Notes: as needed Psychiatrist: Name: . Date of Appointment: Sep 10, 2016 Therapist: Name Of Therapist: Erasto Phone Number: [phone] . Follow-Up Care Plan for Follow-Up Care: see above Current Hospital Diet Patient's current hospital diet: Regular Diet Discharge Diet Recommended Diet: Regular Diet Procedures Procedures Performed: No Pending Studies Pending Studies at Discharge: No Medical Emergencies . Who to Call and When: Medical Emergencies: For questions or emergencies related to your hospital stay, please contact the Inpatient Behavioral Health Unit at [phone]. A day treatment clinician/art therapist is on-call 18/01 for the Behavioral Health Unit for emergencies At any time you feel your situation is an emergency, you may also call 911 immediately. . Non-Emergent Contact Non-Emergency issues call your: Psychiatrist, Therapist, Wire Spinner Past History Medical & Surgical History: (1) Cannabis abuse (2) Opiate abuse, continuous (3) Alcohol abuse Advance Directives Existing Advance Directive: No Do You Have an Existing Mental: No Existing Living Will: No Existing Power of Tractor Trailer Mechanic: No Advance Directives Info Given: To Pt/S.O. Discharge Summary Admission HPI Per the Admitting provider: This is the patient's first hospitalization on our behavioral health unit, although he reports 3 hospitalizations in the past 3 months to other area psychiatric units. He is seeing a therapist, Beryl, at [facility], and according to the 302 petition, made suicidal statements during his session yesterday, stating that he would "blow his brains out," and that he has several firearms. He also made "generic homicidal ideations without a plan," and was noted to have odd behavior and affect while making these statements. When police assented to the office, the patient made statements that "there will be big issues, problems will come out of this," while looking at his counselor. In the emergency room, the patient admitted to having a list of people he would like to harm, but said he didn't think he would act on it. He admitted to "aggressive tendencies," noncompliance with his medications, and to access to firearms. His drug screen was positive for cannabis. He was given Ativan 1 mg , Haldol 5 mg, amphetamine 20 mg, gabapentin 400 mg, and sertraline 100 mg while in the emergency room. He was sarcastic during the admission process, stating that he did not really need to be in the hospital and his chief complaint was "being here." He reports that he has been depressed "forever," and says he had not been treated in years until his recent run of hospitalizations which started in May 2016. He says he has been diagnosed with schizoaffective disorder, depressed type, after he developed auditory hallucinations several months ago. He describes hearing "hushed," mumbling voices, which he hears only when other people are present in the room, and which are present most days. He cannot make out what they say, but thinks he hears them saying his name at times, and becomes "convinced they're talking about me, plotting against me, paranoid that people I do know are setting me up." He says he manages them by "just leaving, " and states that he actually started to leave the emergency room during a recent visit for a mental health evaluation, because he was paranoid about the voices he was hearing. He states that he understands the people are not really talking about him or plotting against him, but still has intrusive paranoid thoughts that bother him. He also admits to intrusive thoughts and concerns that others can read his thoughts are control his thoughts, although he states he knows this is not true. He denies delusions of reference and visual hallucinations. He admits to one episode of visual "distortion," when he was at [facility] in June and thought he saw a curtain when there was none there. He denies thought blocking. He was recently started on Latuda during a hospitalization at [place] a few weeks ago, but stopped that several days prior to presentation as he felt it was causing muscle jerking and stiffness. He also stopped taking all of his other psychotropic medications several days prior to hospitalization, including Ambien (which she says was started at [place] ), clonidine (which she says was started at the [facility] in May and has been helpful for aggression), gabapentin, which she says was started at [facility] in June, and has not been helpful), sertraline (started a couple months ago, and dose just increased 200 mg daily), and Adderall (he states Dr. Willis gave him a prescription for this, but that he has not filled that yet) for unclear reasons. He admits to depressed mood, which has been worse recently, saying "I' m not a happy person to begin with." He reports poor motivation, "I just don't want to do anything," and is vague and evasive when asked how he has been spending his time recently. Appetite is erratic, and he reports he had lost 40 pounds in the past year, but has started gaining some of it back. He endorses hopelessness, stating "I've been stuck in a rut for 3 months, of course I am." He endorses low energy, anhedonia, irritability, and impaired sleep. He states he was started on Ambien 1 or 2 months ago, and initially it helped, but recently he has been taking double the prescribed dose, which results in 8 hours of sleep. He complains of poor sleep last night without the Ambien. He admits to suicidal thoughts, which she describes as "just a desire for an out." He is angry about being here, stating "things were just starting to get better , if I'm here for more than a day, things are getting get real bad." He admits to thoughts to shoot himself, but states he doesn't think he would act on this, because "have you ever seen someone shoot themselves, it's a mess." He says he worries that he would not be successful and would be "a vegetable." He denies symptoms consistent with memo, panic, generalized anxiety, PTSD, and OCD. He does report anxiety due to "because I'm anticipating, wanting to get my life back together, want things to start happening and they're not, so I'm constantly thinking when, when, when." He says his goals are to get a job, get his own apartment, and get his dog back. His dog is currently in the pound, as he's been staying at [facility], [facility], and "wherever I can." When asked about homicidal thoughts reported on admission, he says "I have a lot of aggressive tendencies. I'm an aggressive person." He admits to thoughts of hurting others, which he states are chronic. He was initially resistant to answering questions about this, but ultimately stated that he disclosed to his therapist that he had thoughts of hurting his father. He tells a story of his father returning his backpack to him after he got out of [facility] in June, and says his father put a noose on the backpack , which he thinks was "him encouraging me to kill myself." He says he no longer has any contact with his father, and does not plan to have contact with him, because "if I talked to him, I'd shoot him". He says he might hurt somebody "depending on the circumstances," but does not plan on following through on these thoughts at this point. He admits that he does have guns, and refuses to tell me where they are, saying "if I tell you that, I'd have to shoot you." He ultimately says that they are "at someone's house who I trust." Admission Exam Per the Admitting provider: Please see admission H&P. Consultations None. Hospital Course (1) Suicidal ideation -Every 15 minute checks for safety. -Encourage participation in groups and therapy to work on healthy coping skills and her discharge safety plan. -Reviewed recommendations with the patient to confirm that his guns are secured and that he will have access with them until he stabilized. He is refusing to allow staff to talk to the individual whom he says has his guns. 09/09 -Call placed to coordinate care with his therapist Beryl at [facility]. Message and callback number were left with staff. -Spoke to Beryl to review his case. Advised her of our treatment plan and concerns about his risk for violence and suicide, as well as the plan to discharge the duty to warn by contacting police, as he has not been cooperative with allowing us to talk to the person who has his guns, and is also refusing involvement of parents. Also advised her of aftercare issues as may not be able to be seen by Dr. Willis. 09/10 - Patient remains uncooperative with attempts to safety plan and plan to ensure guns are secured until he has stabilized. He is refusing contact with his family or supports. He is poorly engaged in treatment, and remains high risk. 09/14 - Patient consistently denied SI here. He had a meeting with his mother 09/11 and she did not think he meant it when he had threatened to hurt himself and others, and thought he had been doing well. She felt he was stable, and said he did not have access to guns. - We have not been able to clarify whether he has access to guns or not. He has stated that he owns guns but keeps them at a friend's house, but has refused to say where or what friend, and at other times he has denied having any guns. - Although the patient is at chronic increased risk for suicide compared to the general population, he is not at imminent risk, and risk factors have been mitigated as much as possible by inpatient admission. He is not likely to benefit from further inpatient treatment, so will pursue discharge, which he is requesting. (2) Homicidal ideation -Patient admits to thoughts to harm his father. He denies a plan to act on these, but also states that if he spoke to his father he would "shoot him." We will continue to explore and assess the duty to warn. We will contact his therapist, Beryl Parsons at [facility], as records indicate that he had a list of people he wanted to harm, which we do not have access to here at the hospital. 09/10 -As discussed in treatment team on 09/07 and 09/09, duty to warn is present given patient's threats to shoot his father, with numerous risk factors that increase the risk he will act on violent thoughts, including history of violence towards other, personality disorder, schizoaffective disorder, hallucinations, noncompliance with treatment, substance abuse, male sex, single, unemployed, legal problems, homelessness, lack of supports, no outpatient providers, poor engagement in treatment, substance abuse, access to guns, and repeated statements of harming others. In addition, he has consistently refused to engage in safety planning, and has not been willing to allow staff to talk to the individual whom he says has his guns. Although he signed in voluntarily, he repeatedly states he doesn't need to be here and doesn't want to be here, and only signed in so that he would be able to keep his guns. As we do not have his father's name or contact information, and he will not allow us to speak to any other family members, duty to warn may be accomplished by notifying local police. 09/10 -Local police notified of patient's threats to harm his father, as father's contact information unable to be determined. 09/14 -Patient has been denying thoughts of harming others and denying intent to harm anyone. He is able to review his safety plan. He has not been violent or aggressive here. He is at chronic increased risk for harm to others given his risk factors (below), but not at acute increased risk, and remaining risk factors are not likely to be mitigated by continued inpatient treatment. (3) Schizoaffective disorder, depressive type -Initially patient would only agree to Thorazine when necessary, refusing to resume lurasidone due to perceived side effects, but after reviewing other antipsychotic options, he would like to try Haldol, as he felt it was helpful in the emergency room yesterday. We will start with 5 mg as needed for psychosis, and will also order benztropine 1 mg as needed for EPS. He is a poor historian for other antipsychotic trials, and will need to get records from recent hospitalizations and from outpatient psychiatrist, Dr. Willis. -Resume home dose of sertraline 100 mg daily, increased 250 mg daily for tomorrow to target depression. He was educated about the importance of taking this medication regularly in order for it to be effective. -Call Dr. Willis's office to review presenting symptoms and concerns about medications, specifically multiple controlled substances that he says he is taking, and had to leave a message is their office is closed today. -For now will continue Ambien 10 mg daily at bedtime when necessary, as review of the PDMP reveals a prescription from [facility] filled 08/25/2016, but this will need to be discussed with his outpatient psychiatrist, as he reports abusing it, and is also abusing multiple illicit substances. -Would not recommend he be prescribed controlled substances outside of the hospital. He says he is prescribed Adderall, but there is no prescription visible in the PDMP, and stimulants are contraindicated given his substance abuse. 09/09 - Continue Haldol 5 mg when necessary psychosis. Patient is refusing a regularly scheduled antipsychotic. - Spoke with staff at Dr. Willis's office, who state that the patient has never been seen there, although he does have an initial evaluation scheduled for 09/10. - Will stop Ambien as doesn't have active outpatient prescriber and has been abusing it, as well as multiple illicit substances. 09/10 - Patient now requesting to return to Thorazine, wanting 200mg tid. Advised we can start with 50mg tid and monitor his response, reviewed potential side effects and benefits. Will discontinue oral Haldol and start Thorazine. Continue Haldol IM prn. 09/12 - Patient tolerating Thorazine 75mg TID well and slight calming effect. Will increase Thorazine to 100mg TID. 09/14 - Patient denying psychotic symptoms, thinks meds are helping, and willing to follow up with outpatient providers. Referring for case management, therapy, and psychiatry. (4) Aggressive behavior -The patient reports a long history of aggression, likely consistent with antisocial personality disorder. He reports the clonidine has been helpful, so we'll continue his home dose. He was advised that he is expected to remain in control of his behavior here on the unit, and that threats or violence against others and destruction of property will not be tolerated, and charges may be pressed if he engages in this type of behavior. He expressed understanding. (5) Antisocial personality disorder Patient appears to meet full criteria for ASPD, as he reports a pervasive pattern of disregard for in violation of the rights of others, repeated accidents or grounds for her arrest, impulsivity and failure to plan ahead, irritability and aggressiveness with repeated fights, reckless disregard for his safety and the safety of others, repeated failure to sustain consistent work , and lack of remorse. This was also diagnosed during his inpatient admission at the [facility] in May 2016. 09/09 - patient has been dishonest here, lying about controlled substances that he says he's been prescribed, and is evasive and refuses to answer questions regarding his access to firearms. He is not a reliable historian, but is not allowing us to talk with anyone else he could give collateral information. (6) Alcohol abuse The patient's AUDIT score suggests problematic drinking (Zone III WHO). Brief intervention was offered and accepted Intervention was greater than 5 min in length. Brief interventions include: 1. Assess Readiness to Quit, 2. Advise: Help Patient to Reduce or Abstain from Alcohol, 3. Agree: Set Specific, Feasible Goals, 4. Assist: Anticipate barriers, Problem-Solving Solutions. Social work to 5. Arrange: Referrals to appropriate treatment. Summary of intervention: The patient is in precontemplation stage with regards to transtheoretical model of change. The patient is advised to decrease alcohol consumption due to depressant effects and risk of interactions with prescription medications. The patient has poor insight into his substance abuse and does not wish to change his behavior. Will coordinate care with his outpatient providers. 09/14 - Referring for outpatient substance abuse treatment. Reviewed recommendations to abstain from abusable substances. (7) Cannabis abuse Reviewed risks of ongoing cannabis abuse, and recommendations for abstinence. (8) Opiate abuse, continuous Patient has been abusing heroin and has a history of overdosing on opiate pain medications. Would not recommend he be prescribed controlled substances outside of the hospital. Risk Factors Assessment Male: Yes : Yes /single/: Yes Access to guns: No (Says he has guns which are at another friend's house, but refuses to say who or where, and at other times denies having access to guns.) Health problems: Yes Mental Health Diagnoses: Yes Substance use disorders: Yes Previous attempt: Yes Previous psychiatric stay: Yes Hopelessness: Yes Smoker: Yes Protective Factors Assessment Taoist beliefs: No : No Responsible for young children: No Employed: No Stable relationships: No Supportive family: No Good rapport with provider: No Absence of risk factors above: Yes (Risk factors have been mitigated here by adjusting medications for schizoaffective disorder, working on healthy coping skills and a discharge safety plan, family meeting with mother, and referring for outpatient care. The patient is taking medications, consistently denying SI and HI, and is willin to follow up as an outpatient. He is eating, drinking, and performing his ADLs. He has been educated about the risks of continued substance abuse, recommendations for abstinence, and referred for outpatient substance abuse treatment. He is requesting discharge. He is at chronic increased risk for harm to h himself and others compared to the general population, due to his risk factors of previous suicide attempts and violence towards others, sex, race, single status, lack of employment and housing, antisocial personality disorder, and meantl illness/substance abuse, but these risk factors are not modifiable by further inpatient treatment, and at this point, he has gained maximum benefit from hospitalization. He is not at imminent risk of harm to himself or others and is requesting discharge, so can be managed as an outpatient at this time.) Day of Discharge Assessment Hospital Course: On admission, the patient requested a trial of Haldol for auditory hallucinations, as he felt it had been helpful in the emergency room. On 2016, he requested to return to chlorpromazine, as he felt had been more effective. He was initially started on 50 mg 3 times a day, which was increased to 100 mg 3 times a day with good effect. His auditory hallucinations resolved, and mood improved. His sertraline was increased 250 mg daily to target mood. He was initially very resistant to discussing the suicidal and homicidal statements he made in his therapist's office the day of presentation, and denied ongoing suicidality or homicidality while in the hospital. He was not violent or aggressive towards others or himself while here. He refused to engage in the recommended plan to talk with a friend who he says has his guns and ensure that they would be secured in the patient would not have access to them until he was stabilized. It was not even clear if he truly owns guns, as he made multiple statements that he owns guns and keeps them at a friend's house, whose name he refused to disclose, but at other times stated that he didn't have guns, and his mother did not think that he had access to guns. He had good sleep and appetite in the hospital, and spends much of his days in bed, attending only limited groups and unit programming. His outpatient therapist at [facility] was contacted for collateral information , and ultimately was unwilling to accept him back for ongoing treatment. Ambien was discontinued due to polysubstance abuse. Antisocial personality was diagnosed. He demonstrated dishonesty and attempts to manipulate others for secondary gain, as on admission he stated he was being prescribed stimulants by an outpatient psychiatrist, but when that individual's office was contacted to clarify medication doses, staff disclosed that they had never seen the patient, and that that physician had never prescribed him any medications. He was educated about the risks of substance abuse and the recommendations for abstinence, and referred for outpatient substance abuse treatment. He initially refused to sign in any releases for family or outpatient providers, but later agreed to sign a release for his mother and for outpatient referrals. A family meeting was held with his mother on 09/11/2016. She was upset that people had taken his statements about killing himself and others seriously, stating that he was "just blowing off steam." They were educated that such statements would be taken seriously, and that he should take responsibility for his actions, and work on ways to filter his statements before speaking. His mother shared that she thought he was doing well prior to admission, as he was working on getting a job, and thought that he had been stable on his medication since discharge from [facility]. She was acceptable of him returning [facility] the [facility], as no family are able to help him with housing. The patient stated that he was hopeful he could work at [employer]. His mother stated that he does not have access to guns and did not think he had guns at a friend's house, and felt confident that his friends would contact her if they were concerned for his safety. Both the patient and his mother refused to disclose his father's name, and were informed that the duty to warn would be discharged by contacting police. This was completed on 09/11/2016 by contacting [facility] police. The patient tended to stay in bed and sleeping all morning, but attended afternoon groups. He ate well and appetite was good throughout his stay. He felt that Thorazine was helpful, and kept him calm and more stable during the day. His Ambien was discontinued, as he was abusing multiple substances, and admitted to abusing the Ambien, taking more than the prescribed dose. Day of discharge assessment: The patient states that his mood is "not terrible, hoping to leave." He reports good sleep, and continues to sleep in until lunchtime daily. He feels improved from admission, stating that the auditory hallucinations have resolved , and he thinks Thorazine is helping. He denies side effects to medications. He denies symptoms of depression, thoughts of harming himself, and thoughts of harming anyone else. He is willing for a case management referral, which he had previously declined. After discharge, he is planning on returning to [facility] and out of the [facility]. He is hoping to obtain employment, and eventually wants to move in with an uncle in [place]. He denies any concerns with leaving the hospital, and is able to review coping skills and his discharge safety plan. Well nourished, well developed WM appearing stated age. Lying in bed, shirtless and unkempt. Calm and cooperative. Seated in NAD, with fair eye contact and no abnormal movements. Speech is normal rate, volume, and tone. Mood is "not terrible," and affect is stable and congruent. Thoughts are goal directed. The patient denied suicidal and homicidal ideation and was able to safety plan. No paranoia, delusions, or hallucinations, and did not appear to be responding to internal stimuli. Cognition was grossly intact. Alert and oriented to person, place and time. Intelligence is consistent with level of education. Insight and and judgment are limited. Laboratory Test 06/18/16 16:10 07/12/16 17:34 07/12/16 18:00 09/07/16 12:15 White Blood Count 9.26 10.65 Red Blood Count 5.18 5.19 Hemoglobin 16.7 17.0 Hematocrit 46.5 46.6 Mean Corpuscular Volume 89.8 89.8 Mean Corpuscular Hemoglobin 32.2 32.8 Mean Corpuscular Hemoglobin Concent 35.9 36.5 H Platelet Count 277 213 Mean Platelet Volume 9.6 9.5 Neutrophils (%) (Auto) 69.9 71.2 Lymphocytes (%) (Auto) 22.4 18.7 Monocytes (%) (Auto) 6.0 6.1 Eosinophils (%) (Auto) 1.3 3.5 Basophils (%) (Auto) 0.2 0.2 Neutrophils # (Auto) 6.47 7.59 H Lymphocytes # (Auto) 2.07 1.99 Monocytes # (Auto) 0.56 0.65 H Eosinophils # (Auto) 0.12 0.37 Basophils # (Auto) 0.02 0.02 RDW Standard Deviation 41.2 42.6 RDW Coefficient of Variation 12.6 13.0 Immature Granulocyte % (Auto) 0.2 0.3 Immature Granulocyte # (Auto) 0.02 0.03 H Erythrocyte Sedimentation Rate 9 Urine Color YELLOW DK YELLOW YELLOW Urine Appearance CLEAR CLEAR CLEAR Urine pH 7.5 5.0 7.5 Urine Specific Trout 1.003 1.026 1.005 Urine Protein NEG 1+ NEG Urine Glucose (UA) NEG NEG NEG Urine Ketones NEG 1+ H NEG Urine Occult Blood NEG NEG NEG Urine Nitrite NEG NEG NEG Urine Bilirubin NEG NEG NEG Urine Urobilinogen NEG NEG NEG Urine Leukocyte Esterase NEG NEG NEG Sodium Level 142 141 Potassium Level 3.6 3.5 Chloride Level 105 104 Carbon Dioxide Level 25 24 Anion Gap 12.0 H 13.0 H Blood Urea Nitrogen 10 15 Creatinine 0.87 0.91 Est Creatinine Clear Calc Drug Dose 109.9 106.7 Estimated GFR () 135.2 131.5 Estimated GFR (Non- 116.6 113.5 BUN/Creatinine Ratio 11.1 16.9 Random Glucose 123 H 152 H Calcium Level 8.9 9.2 Urine WBC (Auto) 1-5 Urine RBC (Auto) 0-4 Urine Hyaline Casts (Auto) 5-10 H Urine Epithelial Cells (Auto) 10-20 H Urine Bacteria (Auto) NEG Urine Synthetic Stimulants see note Urine Opiates Screen POS H NEG Urine Codeine Confirmation (GC/MS) NEGATIVE Urine Morphine Confirm (GC/MS) NEGATIVE Urine Hydrocodone Confirm (GC/MS) 548 A Urine Norhydrocodone 1750 A Urine Noroxycodone NEGATIVE Urine Oxycodone Confirm (GC/MS) NEGATIVE Urine Oxymorphone Confirm (GC/MS) NEGATIVE Urine Methadone, Qualitative NEG NEG Urine Hydromorphone Confirm (GC/MS) 618 A Urine Barbiturates NEG NEG Urine Phencyclidine (PCP) Level NEG NEG Ur Amphetamine/Methamphetamine NEG NEG MDMA (Ecstasy) Screen NEG NEG Urine Benzodiazepines Screen NEG NEG Urine Cocaine Metabolite NEG NEG Cannabinoids Comment see note Urine Synthetic Cannabinoids NEGATIVE Ur Synthetic Cannabinoids Confirm Urine Marijuana (THC) POS H POS H Urine Marijuana (THC Carboxy Acid) 281 A 38 A Total Bilirubin 0.8 Direct Bilirubin 0.2 Aspartate Amino Transferase (AST) 25 Alanine Aminotransferase (ALT) 26 Alkaline Phosphatase 111 Total Protein 7.2 Albumin 3.9 Globulin 3.3 Albumin/Globulin Ratio 1.2 Thyroid Stimulating Hormone (TSH) 0.533 Ethyl Alcohol mg/dL < 3.0 Test 09/07/16 12:45 White Blood Count 7.60 Red Blood Count 4.51 L Hemoglobin 14.1 Hematocrit 41.2 L Mean Corpuscular Volume 91.4 Mean Corpuscular Hemoglobin 31.3 Mean Corpuscular Hemoglobin Concent 34.2 Platelet Count 237 Mean Platelet Volume 9.5 Neutrophils (%) (Auto) 49.7 Lymphocytes (%) (Auto) 29.7 Monocytes (%) (Auto) 9.6 Eosinophils (%) (Auto) 9.9 Basophils (%) (Auto) 0.7 Neutrophils # (Auto) 3.78 Lymphocytes # (Auto) 2.26 Monocytes # (Auto) 0.73 H Eosinophils # (Auto) 0.75 H Basophils # (Auto) 0.05 RDW Standard Deviation 45.1 RDW Coefficient of Variation 13.5 Immature Granulocyte % (Auto) 0.4 Immature Granulocyte # (Auto) 0.03 H Sodium Level 141 Potassium Level 4.2 Chloride Level 107 Carbon Dioxide Level 24 Anion Gap 10.0 Blood Urea Nitrogen 16 Creatinine 0.86 Est Creatinine Clear Calc Drug Dose 122.6 Estimated GFR () 135.8 Estimated GFR (Non- 117.2 BUN/Creatinine Ratio 19.0 Random Glucose 93 Calcium Level 8.5 Total Bilirubin 0.2 Direct Bilirubin < 0.1 Aspartate Amino Transferase (AST) 31 Alanine Aminotransferase (ALT) 55 Alkaline Phosphatase 136 H Total Protein 7.4 Albumin 4.0 Globulin 3.4 Albumin/Globulin Ratio 1.2 Thyroid Stimulating Hormone (TSH) 2.590 Ethyl Alcohol mg/dL < 3.0 Total Time Total Time Spent (min): Greater than 30 minutes Total Time Included: examination of the patient, discharge planning, medication reconciliation Tobacco Cessation at Discharge FDA approved Prescription: patient refused (He plans to continue smoking.)
[2016-09-14] MEDS ORDERED: CHLO100T8 PO (11:51)
[2016-09-14] MEDS ORDERED: DESTROY THIS MEDICATION ONE (13:00)
[2017-03-03] MEDS ORDERED: CLON0.1T12 PO (02:11)
[2017-03-03] MEDS ORDERED: ASPI81TA28 PO (02:11)
[2017-03-03] MEDS ORDERED: SERT-234 PO (02:31)
== END 2016-09-14 13:05 | disposition home or self-care (01) | DRG 885 ==
LOC: C.EDB 11:50 → C.MHU 14:41
PROVIDERS: ADMIT Psychiatry & Neurology Psychiatry; ATTEND Psychiatry & Neurology Psychiatry
DX: F25.1 Schizoaffective disorder, depressive type (principal); R45.851 Suicidal ideations; R45.850 Homicidal ideations; F90.9 Attention-deficit hyperactivity disorder, unspecified type; F41.9 Anxiety disorder, unspecified; F60.2 Antisocial personality disorder; F11.10 Opioid abuse, uncomplicated; F10.10 Alcohol abuse, uncomplicated; F12.10 Cannabis abuse, uncomplicated; F17.210 Nicotine dependence, cigarettes, uncomplicated; Z91.5 Personal history of self-harm; Z91.14 Patient's other noncompliance with medication regimen; Z79.82 Long term (current) use of aspirin; Z79.899 Other long term (current) drug therapy; Z59.0 Homelessness; Z81.1 Family history of alcohol abuse and dependence; Z81.3 Family history of other psychoactive substance abuse and dependence; Z81.8 Family history of other mental and behavioral disorders

== ENCOUNTER 2016-09-17 09:19 | Emergency (ER) | payer OTHER ==
[~2016-09-17] VITALS: Ht 175.3 cm; Wt 68.0 kg
[~2016-09-17 09:19] MED LIST changes: -ATOM40CA PO; +CHLO100T8 PO; +SERT-234 PO
[2016-09-17 09:25] VITALS: TEMP 37; Ht 175.3 cm; Wt 68.0 kg
[2016-09-17] MEDS ORDERED: ACETAMINOPHEN 325 MG TAB PO STA (09:43)
--- NOTE | 2016-09-17 10:35 | DIAGNOSTIC IMAGING REPORT ---
LEFT KNEE REVEALS HISTORY: Left knee pain s/p wrestling maneuver COMPARISON: None. FINDINGS: There is no fracture or dislocation. Soft tissues are unremarkable. No radiopaque foreign bodies. No significant knee effusion. IMPRESSION: No fractures. Electronically signed by: Zheng Sharp M.D. 09/17/2016 10:34 AM Dictated Date/Time: 09/17/2016 10:32 AM
--- NOTE | 2016-09-17 11:31 | EMERGENCY ROOM VISIT NOTE ---
History First contact with patient: 09:32 Chief Complaint: KNEEPAIN Stated Complaint: KNEE PAIN History of Present Illness The patient is a 31 year old male who presents to the Emergency Room via ambulance with complaints of "the pain". The patient states that he was drinking last night and between the hours of 10 PM and 1 AM he was wrestling with his girlfriend and she performed a wrestling maneuver on him which isolated his left leg and he notes that he did hear a loud pop in the left knee. He notes pain behind the left knee. He states that he was drinking alcohol therefore the time did not realize the severity of the pain. He states that this morning as he has been sobering up the pain is excruciating, and if he moves the leg or tries to step or bear weight it is very painful. He notes the pain is throbbing in nature of which he rates as a 6-7 at rest and is much higher with standing. He has tried ibuprofen with minimal relief. He denies any numbness or tingling in the distal extremity. Review of Systems A complete 6-point Review of Systems was discussed with the patient, with pertinent positives and negatives listed in the History of Present Illness. All remaining Review of Systems questions can be considered negative unless otherwise specified. Past Medical/Surgical History Medical Problems: (1) Antisocial personality disorder (2) Bronchitis (3) Cannabis abuse (4) Cellulitis (5) Cervical adenopathy (6) Chest pain, precordial (7) Genital warts (8) Homicidal ideation (9) No history of heart disease (10) Opiate abuse, continuous (11) Pancreatitis (12) Pneumomediastinum (13) Pneumonia (14) Schizoaffective disorder, depressive type (15) Suicidal ideation Social History Problems: (1) Alcohol abuse Family History Cancer Diabetes mellitus FH: cancer Gallbladder disease Heart disease Hypertension Kidney disease Kidney stones Lung disease Seizures Social History Smoking Status: Current Every Day Smoker Alcohol Use: occasionally Drug Use: marijuana Marital Status: single Housing Status: lives alone Occupation Status: unemployed Current/Historical Medications Scheduled Aspirin (Aspirin Ec), 81 MG PO DAILY Chlorpromazine Hcl (Thorazine), 100 MG PO TID Clonidine Hcl (Catapres), 1 TAB PO BID Naproxen (Naprosyn), 500 MG PO BID Probiotic Product (Probiotic), 1 CAP PO DAILY Sertraline (Zoloft), 150 MG PO DAILY Allergies Coded Allergies: No Known Allergies (Unverified , 09/17/16) Physical Exam Vital Signs Date Time Temp Pulse Resp B/P Pulse Ox O2 Delivery O2 Flow Rate FiO2 09/17/16 11:35 71 16 115/72 98 Room Air 09/17/16 09:25 37.0 89 18 133/71 97 Room Air Physical Exam VITAL SIGNS - Vital signs and nursing notes were reviewed. Patient is afebrile , normotensive, non-tachycardic and is saturating well on room air 97%. GENERAL -31-year-old male appearing his stated age who is in no acute distress. Communicates well with provider and answers questions appropriately. SKIN - Without rashes. No petechial rashes. The skin overlying the left lower extremity is intact. HEAD - NC/AT. EXTREMITIES - No clubbing or peripheral cyanosis. No pretibial edema present. Patient is vascular intact in the left lower extremity. Minimal tenderness to palpation overlying the left lower extremity. There is no tenderness to palpation overlying the proximal thigh, hip, mireles region or ankle. There is tenderness to palpation overlying the left knee. Positive anterior drawer. Patient had exquisite tenderness with the anterior drawer. Due to this Nick' s was not initiated. +5/5 strength noted in UE/LE bilaterally. NEUROLOGIC - Sensory intact to light touch throughout the left lower extremity. Medical Decision & Procedures ER Provider Diagnostic Interpretation: LEFT KNEE REVEALS HISTORY: Left knee pain s/p wrestling maneuver COMPARISON: None. FINDINGS: There is no fracture or dislocation. Soft tissues are unremarkable. No radiopaque foreign bodies. No significant knee effusion. IMPRESSION: No fractures. Electronically signed by: Zheng Sharp M.D. 09/17/2016 10:34 AM Dictated Date/Time: 09/17/2016 10:32 AM Medications Administered Medications (Trade) Dose Ordered Sig/Amada Route Start Time Stop Time Status Last Admin Dose Admin Acetaminophen (Tylenol Tab) 650 mg NOW STAT PO 09/17/16 09:43 09/17/16 09:45 DC 09/17/16 10:01 650 MG Medical Decision Patient was seen and evaluated as above. After obtaining a thorough history and physical examination was evident the patient was likely experiencing a ligamentous injury within the knee. I did offer the patient radiographs and these are as above. He was given ice packs as well as Tylenol for his pain. Radiographs did not reveal any acute fracture or injury. I suspect that due to the positive anterior drawer, was pain with this as well as subjective exam he likely has injured the anterior cruciate ligament. I discussed with him potential MRI, and believe this is better performed if necessary in the orthopedic setting. He was fitted with a knee immobilizer and provided with crutches and educated upon use. He was educated upon management of the knee, provided with the number to call to schedule follow-up with orthopedic surgeon, had questions answered prior to discharge, was educated upon worrisome symptoms which to return and was discharged home in good condition. In the evaluation and treatment of this patient, the following differential diagnoses were considered: Patellar Fracture, Tibial Plateau Fracture, Distal Femur Fracture, ACL Injury, PCL Injury, Collateral Ligament Injury, Pes Anserine Bursitis, Maisonneuve Fracture. Impression Primary Impression: Left knee pain Departure Information Dispostion Home / Self-Care Condition GOOD Referrals No Doctor, Assigned (PCP) Deshawn Menendez D.O. Patient Instructions My [facility] Additional Instructions You have been treated in the Emergency Department for Knee Pain. For pain control, you can use the following [id number] medicines (if >12 yo): - Regular strength (325mg/tab) Tylenol (acetaminophen) 2 tabs every 4-6 hours as needed. Do not exceed 12 tablets in a 24 hour period. Avoid taking more than 4 grams (4000 mg) of Tylenol per day. This includes any other sources of acetaminophen you may take on a regular basis. - Regular strength (200 mg/tab) Advil (ibuprofen) 1-2 tabs every 4-6 hours as needed. Do not exceed a dose of 3200 mg per day. If this is a recent injury (<24 hrs), ice can be applied to the area of pain for the first 3 days to help decrease pain and inflammation. Ice massages can be performed by freezing water in a paper cup, peeling back the cup to expose the ice and then massaging over the affected area. You have been provided the number for an Orthopaedic Surgeon. You should call this number as soon as possible to establish a follow-up visit from today's Emergency Department visit. Keep the knee brace in place until cleared by Orthopedics. Use the crutches you have been provided to keep ALL weight off of the knee until weight bearing is tolerable. Return to the Emergency Department if your current symptoms worsen despite treatment course outlined above. Please return to the emergency department with any new/concerning symptoms. Problem Qualifiers Primary Impression: Left knee pain Chronicity: acute Qualified Codes: M25.562 - Pain in left knee
[2016-09-17 11:35] VITALS: BP 115/72; PULSE 71; O2SAT 98
[2017-03-03] MEDS ORDERED: ASPI81TA28 PO (02:11)
[2017-03-03] MEDS ORDERED: CLON0.1T12 PO (02:11)
[2017-03-03] MEDS ORDERED: SERT-234 PO (02:31)
== END 2016-09-17 11:45 | disposition home or self-care (01) ==
LOC: EDBD 09:19 → C.EDB 09:20
DX: M25.562 Pain in left knee (principal); F25.1 Schizoaffective disorder, depressive type; F17.200 Nicotine dependence, unspecified, uncomplicated; Z87.01 Personal history of pneumonia (recurrent); Z83.3 Family history of diabetes mellitus; Z82.49 Family history of ischemic heart disease and other diseases of the circulatory system; Z84.1 Family history of disorders of kidney and ureter; Z82.0 Family history of epilepsy and other diseases of the nervous system; Z79.82 Long term (current) use of aspirin; Z79.899 Other long term (current) drug therapy

== ENCOUNTER 2016-11-25 02:13 | Emergency (ER) | payer OTHER ==
[~2016-11-25] VITALS: Ht 175.3 cm; Wt 71.3 kg
[2016-11-25 02:16] VITALS: BP 138/91; TEMP 37; Ht 175.3 cm; Wt 71.3 kg
[2016-11-25] MEDS ORDERED: PENICILLIN V POTASSIUM 250 MG TAB PO ONE ×2 (02:20→02:30)
[2016-11-25] MEDS ORDERED: PENICILLIN HOME PACK 250MG (4)BTL PO ONE (02:30)
[2016-11-25] MEDS ORDERED: CHLO100T8 PO (02:31)
--- NOTE | 2016-11-25 02:39 | EMERGENCY ROOM VISIT NOTE ---
History Report prepared by Ana: Lencho Bolivar Under the Supervision of: Dr. Catrachito Huston D.O. First contact with patient: 02:16 Chief Complaint: DENTAL PAIN Stated Complaint: MOUTH PAIN History of Present Illness The patient is a 31 year old male who presents to the Emergency Room with complaints of constant, aching lower dental pain beginning 4 days ago. The patient states that he has a lower dental abscess. He notes that this is the first time that he has been able to see someone. The patient reports that he has had subjective fevers and diaphoresis. Source of History: patient Onset: 4 days ago Position: teeth (lower-left) Quality: ache Timing: constant, intermittent Associated Symptoms: + diaphoresis, + fevers Review of Systems See HPI for pertinent positives and negatives. A total of ten systems were reviewed and were otherwise negative. Past Medical & Surgical Medical Problems: (1) Antisocial personality disorder (2) Bronchitis (3) Cannabis abuse (4) Cellulitis (5) Cervical adenopathy (6) Chest pain, precordial (7) Genital warts (8) Homicidal ideation (9) No history of heart disease (10) Opiate abuse, continuous (11) Pancreatitis (12) Pneumomediastinum (13) Pneumonia (14) Schizoaffective disorder, depressive type (15) Suicidal ideation Social History Problems: (1) Alcohol abuse Family History Cancer Diabetes mellitus FH: cancer Gallbladder disease Heart disease Hypertension Kidney disease Kidney stones Lung disease Seizures Social History Smoking Status: Current Every Day Smoker Alcohol Use: occasionally Drug Use: marijuana Marital Status: single Housing Status: lives alone Occupation Status: unemployed Current/Historical Medications Scheduled Aspirin (Aspirin Ec), 81 MG PO DAILY Chlorpromazine Hcl (Thorazine), 100 MG PO TID Clonidine Hcl (Catapres), 1 TAB PO BID Naproxen (Naprosyn), 500 MG PO BID Probiotic Product (Probiotic), 1 CAP PO DAILY Sertraline (Zoloft), 150 MG PO DAILY Allergies Coded Allergies: No Known Allergies (Unverified , 11/25/16) Physical Exam Vital Signs Date Time Temp Pulse Resp B/P Pulse Ox O2 Delivery O2 Flow Rate FiO2 11/25/16 02:16 37.0 93 16 138/91 97 Room Air Physical Exam GENERAL: Awake, alert, well-appearing, in no distress HENT: Normocephalic, atraumatic. Oropharynx unremarkable. No signs of gingival abscess, no submandibular swelling, poor dentition. EYES: Normal conjunctiva. Sclera non-icteric. NECK: Supple. No nuchal rigidity. FROM. No JVD. RESPIRATORY: Clear to auscultation. CARDIAC: Regular rate, normal rhythm. Extremities warm and well perfused. Pulses equal. ABDOMEN: Soft, non-distended. No tenderness to palpation. No rebound or guarding. No masses. RECTAL: Deferred. MUSCULOSKELETAL: Chest examination reveals no tenderness. The back is symmetrical on inspection without obvious abnormality. There is no CVA tenderness to palpation. No joint edema. LOWER EXTREMITIES: Calves are equal size bilaterally and non-tender. No edema. No discoloration. NEURO: Normal sensorium. No sensory or motor deficits noted. SKIN: No rash or jaundice noted. Medical Decision & Procedures Medications Administered Medications (Trade) Dose Ordered Sig/Amada Route Start Time Stop Time Status Last Admin Dose Admin Penicillin V Potassium (Veetids Tab) 500 mg ONE ONCE PO 11/25/16 02:30 11/25/16 02:31 DC 11/25/16 02:40 500 MG Penicillin V Potassium (Pen-Vk 250MG Home Pack) 1 homepack UD ONCE PO 11/25/16 02:30 11/25/16 02:31 DC 11/25/16 02:30 1 HOMEPACK ED Course 0218: The patient was evaluated in room B02. A complete history and physical exam was performed. Discussed discharge instructions: he verbalized understanding and agreement. The patient is ready for discharge when he receives his medication. 0230: Ordered Veetids Tab 500mg PO, Penicillin V Potassium 1 homepack PO. Medical Decision Pulpitis, dental abscess, gingivitis. Patient was started on penicillin the emergency department. Patient has no signs submandibular abscess lewd weeks angina or any difficulty with his airway at this time. Patient will be empirically treated for pulpitis. Impression Primary Impression: Periapical abscess Scribe Attestation The scribe's documentation has been prepared under my direction and personally reviewed by me in its entirety. I confirm that the note above accurately reflects all work, treatment, procedures, and medical decision making performed by me. Departure Information Dispostion Home / Self-Care Prescriptions Penicillin V Potassium (Veetids) 500 Mg Tab 500 MG PO QID, #40 TAB Prov: Catrachito Huston, DO 11/25/16 Referrals No Doctor, Assigned (PCP) Patient Instructions Dental Abscess, My [facility]
[2016-11-25] MEDS ORDERED: PENI-82 PO (02:44)
[2016-11-25 02:51] VITALS: PULSE 82; O2SAT 97
[2017-03-03] MEDS ORDERED: CLON0.1T12 PO (02:11)
[2017-03-03] MEDS ORDERED: ASPI81TA28 PO (02:11)
[2017-03-03] MEDS ORDERED: SERT-234 PO (02:31)
[2017-05-01] MEDS ORDERED: DICY10CA55 PO (05:21)
[2017-05-01] MEDS ORDERED: ONDA4TAB10 SL (05:21)
== END 2016-11-25 02:56 | disposition home or self-care (01) ==
LOC: EDBD 02:13 → C.EDB 02:14
DX: K04.7 Periapical abscess without sinus (principal); F60.2 Antisocial personality disorder; F12.10 Cannabis abuse, uncomplicated; F11.10 Opioid abuse, uncomplicated; Z87.01 Personal history of pneumonia (recurrent); K85.90 Acute pancreatitis without necrosis or infection, unspecified; Z80.9 Family history of malignant neoplasm, unspecified; Z83.3 Family history of diabetes mellitus; Z83.79 Family history of other diseases of the digestive system; Z82.49 Family history of ischemic heart disease and other diseases of the circulatory system; Z84.1 Family history of disorders of kidney and ureter; Z83.6 Family history of other diseases of the respiratory system; F17.210 Nicotine dependence, cigarettes, uncomplicated; Z79.82 Long term (current) use of aspirin; Z79.899 Other long term (current) drug therapy

== ENCOUNTER 2017-03-03 22:28 | Emergency (ER) | payer OTHER ==
[~2017-03-03] VITALS: Ht 175.3 cm; Wt 74.6 kg
[~2017-03-03 22:28] MED LIST changes: +ASPI81TA28 PO; +CLON0.1T12 PO; +PENI-82 PO
[2017-03-03 22:30] VITALS: Ht 175.3 cm; Wt 74.6 kg
[2017-03-03] MEDS ORDERED: ONDANSETRON INJ 2 MG/ML 2 ML VIAL IV STA (22:47)
--- NOTE | 2017-03-03 22:53 | EMERGENCY ROOM VISIT NOTE ---
History Report prepared by Ana: Farzad Ibarra Under the Supervision of: Dr. Catrachito Huston D.O. First contact with patient: 22:41 Chief Complaint: ABDOMINAL PAIN Stated Complaint: STOMACH PAIN, NAUSEA History of Present Illness The patient is a 32 year old male who presents to the Emergency Room with complaints of worsening upper abdominal pain beginning a few days ago. The patient also complains of nausea, vomiting and fevers. He states that his vomit appeared "smith" in appearance. He notes that he has a dental abscess that has been draining recently. The patient was seen by his dentist today and referred to the ED. He states that he has two "bad teeth" that need to be pulled. He has been taking an old prescription of Clindamycin that he had at home for his symptoms. Nothing has improved the patient's pain. Source of History: patient Onset: A few days ago Position: abdomen (upper) Timing: worsening Modifying Factors (Relieving): other (none) Associated Symptoms: + fevers, + nausea, + vomiting Review of Systems See HPI for pertinent positives and negatives. A total of ten systems were reviewed and were otherwise negative. Past Medical & Surgical Medical Problems: (1) Antisocial personality disorder (2) Bronchitis (3) Cannabis abuse (4) Cellulitis (5) Cervical adenopathy (6) Chest pain, precordial (7) Genital warts (8) Homicidal ideation (9) No history of heart disease (10) Opiate abuse, continuous (11) Pancreatitis (12) Pneumomediastinum (13) Pneumonia (14) Schizoaffective disorder, depressive type (15) Suicidal ideation Social History Problems: (1) Alcohol abuse Family History Cancer Diabetes mellitus FH: cancer Gallbladder disease Heart disease Hypertension Kidney disease Kidney stones Lung disease Seizures Social History Smoking Status: Current Every Day Smoker Alcohol Use: occasionally Drug Use: marijuana Marital Status: single Housing Status: lives alone Occupation Status: unemployed Current/Historical Medications Scheduled Aspirin (Aspirin Ec), 81 MG PO DAILY Clindamycin HCl (Clindamycin HCl), 1 CAP PO QID Clonidine Hcl (Catapres), 1 TAB PO BID Lurasidone Hcl (Latuda), 80 MG PO DAILY Sertraline (Zoloft), 150 MG PO DAILY Scheduled PRN Chlorpromazine Hcl (Thorazine), 100 MG PO TID PRN for Anxiety Allergies Coded Allergies: No Known Allergies (Unverified , 11/25/16) Physical Exam Vital Signs Date Time Temp Pulse Resp B/P (MAP) Pulse Ox O2 Delivery O2 Flow Rate FiO2 03/03/17 22:30 36.8 92 18 124/84 98 Room Air Physical Exam GENERAL: Awake, alert, well-appearing, in no distress HENT: Normocephalic, atraumatic. Gingivitis. No obvious abscess. Dental caries left lower molars. EYES: Normal conjunctiva. Sclera non-icteric. NECK: Supple. No nuchal rigidity. FROM. No JVD. RESPIRATORY: Clear to auscultation. CARDIAC: Regular rate, normal rhythm. Extremities warm and well perfused. Pulses equal. ABDOMEN: Soft, non-distended. No tenderness to palpation. No rebound or guarding. No masses. RECTAL: Deferred. MUSCULOSKELETAL: Chest examination reveals no tenderness. The back is symmetrical on inspection without obvious abnormality. There is no CVA tenderness to palpation. No joint edema. LOWER EXTREMITIES: Calves are equal size bilaterally and non-tender. No edema. No discoloration. NEURO: Normal sensorium. No sensory or motor deficits noted. SKIN: No rash or jaundice noted. Medical Decision & Procedures Laboratory Results 03/03/17 23:17 Red Blood Count 5.28, Mean Corpuscular Volume 87.3, Mean Corpuscular Hemoglobin 31.4, Mean Corpuscular Hemoglobin Concent 36.0, Mean Platelet Volume 9.5, Neutrophils (%) (Auto) 52.6, Lymphocytes (%) (Auto) 33.7, Monocytes (%) (Auto) 10.0, Eosinophils (%) (Auto) 3.3, Basophils (%) (Auto) 0.2, Neutrophils # (Auto ) 4.34, Lymphocytes # (Auto) 2.79, Monocytes # (Auto) 0.83, Eosinophils # (Auto ) 0.27, Basophils # (Auto) 0.02 03/03/17 23:17 Test 03/03/17 23:15 03/03/17 23:17 Urine Color YELLOW Urine Appearance CLEAR (CLEAR) Urine pH 5.0 (4.5-7.5) Urine Specific [place] 1.021 (1.000-1.030) Urine Protein NEG (NEG) Urine Glucose (UA) NEG (NEG) Urine Ketones NEG (NEG) Urine Occult Blood NEG (NEG) Urine Nitrite NEG (NEG) Urine Bilirubin NEG (NEG) Urine Urobilinogen NEG (NEG) Urine Leukocyte Esterase NEG (NEG) White Blood Count 8.27 K/uL (4.8-10.8) Red Blood Count 5.28 M/uL (4.7-6.1) Hemoglobin 16.6 g/dL (14.0-18.0) Hematocrit 46.1 % (42-52) Mean Corpuscular Volume 87.3 fL (80-100) Mean Corpuscular Hemoglobin 31.4 pg (25-34) Mean Corpuscular Hemoglobin Concent 36.0 g/dl (32-36) Platelet Count 273 K/uL (130-400) Mean Platelet Volume 9.5 fL (7.4-10.4) Neutrophils (%) (Auto) 52.6 % Lymphocytes (%) (Auto) 33.7 % Monocytes (%) (Auto) 10.0 % Eosinophils (%) (Auto) 3.3 % Basophils (%) (Auto) 0.2 % Neutrophils # (Auto) 4.34 K/uL (1.4-6.5) Lymphocytes # (Auto) 2.79 K/uL (1.2-3.4) Monocytes # (Auto) 0.83 K/uL (0.11-0.59) Eosinophils # (Auto) 0.27 K/uL (0-0.5) Basophils # (Auto) 0.02 K/uL (0-0.2) RDW Standard Deviation 41.7 fL (36.4-46.3) RDW Coefficient of Variation 13.0 % (11.5-14.5) Immature Granulocyte % (Auto) 0.2 % Immature Granulocyte # (Auto) 0.02 K/uL (0.00-0.02) Anion Gap 7.0 mmol/L (3-11) Est Creatinine Clear Calc Drug Dose 108.1 ml/min Estimated GFR () 116.5 Estimated GFR (Non- 100.6 BUN/Creatinine Ratio 10.0 (10-20) Calcium Level 9.5 mg/dl (8.5-10.1) Total Bilirubin 0.3 mg/dl (0.2-1) Direct Bilirubin mg/dl (0-0.2) Aspartate Amino Transf (AST/SGOT) 31 U/L (15-37) Alanine Aminotransferase (ALT/SGPT) 35 U/L (12-78) Alkaline Phosphatase 103 U/L (45-117) Total Protein 7.9 gm/dl (6.4-8.2) Albumin 4.5 gm/dl (3.4-5.0) Lipase 242 U/L (73-393) Chemistry Specimen Hemolysis Laboratory results reviewed by me Medications Administered Medications (Trade) Dose Ordered Sig/Amada Route Start Time Stop Time Status Last Admin Dose Admin Ondansetron HCl (Zofran Inj) 4 mg NOW STAT IV 03/03/17 22:47 03/03/17 22:49 DC 03/03/17 23:20 4 MG Clindamycin Phosphate (Cleocin 600mg/ 54ml D5W) 600 mg ONE ONCE IV 03/03/17 23:00 03/03/17 23:01 DC 03/03/17 23:20 600 MG ED Course 2243: The patient was evaluated in room C12B. A complete history and physical exam was performed. 2247: Ordered Zofran Inj 4 mg IV. 2300: Ordered Cleocin 600 mg/54 mL D5W 600 mg IV. 0015: I reevaluated the patient. Discussed results and discharge instructions: he verbalized understanding and agreement. The patient is ready for discharge. Medical Decision Differential diagnoses include but are not limited to; gastritis, gastroenteritis, dental infection, and colitis. Patient resting in no distress labs are normal patient was given IV clindamycin is currently taking oral clindamycin and his girlfriend given. Patient will follow-up with dentist this week. We'll treat with Zofran Medication Reconcilliation Current Medication List: was personally reviewed by me Blood Pressure Screening Patient's blood pressure: Normal blood pressure Blood pressure disposition: Did not require urgent referral Impression Primary Impression: Gastritis Additional Impression: Dental caries Scribe Attestation The scribe's documentation has been prepared under my direction and personally reviewed by me in its entirety. I confirm that the note above accurately reflects all work, treatment, procedures, and medical decision making performed by me. Departure Information Dispostion Home / Self-Care Referrals No Doctor, Assigned (PCP) Patient Instructions ED Gastritis, ED Tooth Pain, My [facility] Health Problem Qualifiers
[2017-03-03] MEDS ORDERED: CLINDAMYCIN 600 MG/54 ML D5W IV ONE (23:00)
[2017-03-03] MEDS ORDERED: LURA80TA PO (23:15)
[2017-03-03] MEDS ORDERED: CLIN1CAP51 PO (23:16)
[2017-03-03 23:35] LABS: BASO % 0.2 %; BASO ABS # 0.02 K/uL (0-0.2); COMPLETE YES; EOS % 3.3 %; HEMATOCRIT 46.1 % (42-52); IG% 0.2 %; LYMPH % 33.7 %; LYMPH ABS # 2.79 K/uL (1.2-3.4); MEAN CELL VOLUME 87.3 fL (80-100); MEAN CORPUSCULAR HEMOGLOBIN 31.4 pg (25-34); MEAN PLATELET VOLUME 9.5 fL (7.4-10.4); NEUT % 52.6 %; PLATELET COUNT 273 K/uL (130-400); RED BLOOD COUNT 5.28 M/uL (4.7-6.1); WHITE BLOOD COUNT 8.27 K/uL (4.8-10.8)
[2017-03-03 23:51] LABS: URINE APPEARANCE CLEAR (CLEAR); URINE BILIRUBIN NEG (NEG); URINE COLOR YELLOW; URINE NITRITE NEG (NEG); URINE SPECIFIC GRAVITY 1.021 (1.000-1.030); UROBILINOGEN NEG (NEG); ZZUR CULT IF INDIC CLEAN CATCH NO
[2017-03-04 00:04] LABS: ALKALINE PHOSPHATASE 103 U/L (45-117); ALT/SGPT 35 U/L (12-78); AST/SGOT 31 U/L (15-37); BLOOD UREA NITROGEN 10 mg/dl (7-18); CALCIUM 9.5 mg/dl (8.5-10.1); CARBON DIOXIDE 24 mmol/L (21-32); CHLORIDE 106 mmol/L (98-107); GLUCOSE 83 mg/dl (70-99); POTASSIUM 3.7 mmol/L (3.5-5.1); SODIUM 137 mmol/L (136-145)
[2017-03-04 00:04] LABS: MANUAL MICROSCOPIC REQUIRED? NO; REVIEW REQ? NO
[2017-03-04 00:28] VITALS: BP 123/80; PULSE 73; TEMP 36.8; O2SAT 96
[2017-03-04] MEDS ORDERED: ONDANSETRON HOME PACK 4MG OD TAB PO ONE (00:30)
== END 2017-03-04 00:30 | disposition home or self-care (01) ==
LOC: C.EDB 22:30 → C.EDC 03-04 00:30
DX: K29.70 Gastritis, unspecified, without bleeding (principal); K02.9 Dental caries, unspecified; F25.1 Schizoaffective disorder, depressive type; K86.1 Other chronic pancreatitis; F17.200 Nicotine dependence, unspecified, uncomplicated; Z86.19 Personal history of other infectious and parasitic diseases; Z79.82 Long term (current) use of aspirin; Z79.899 Other long term (current) drug therapy; Z80.9 Family history of malignant neoplasm, unspecified; Z83.3 Family history of diabetes mellitus; Z82.49 Family history of ischemic heart disease and other diseases of the circulatory system; Z84.1 Family history of disorders of kidney and ureter; Z82.0 Family history of epilepsy and other diseases of the nervous system

== ENCOUNTER 2023-11-26 13:05 | Inpatient (IN) ==
[2023-11-26 13:59] LABS: Appearance Urine Clear (Clear); Bilirubin Urine Negative (Negative); Blood Urine Negative (Negative); Color Urine Yellow; Glucose Urine UA Negative (Negative); Ketones Urine Negative (Negative); Leukocyte Esterase Urine Negative (Negative); Nitrite Urine Negative (Negative); Protein Urine Negative (Negative); Specific Gravity Urine 1.005 (1.000-1.030); Urobilinogen Urine Negative (Negative); pH Urine 5.5 (4.5-7.5)
[2023-11-26 14:04] LABS: Basophils # (auto) 0.07 K/uL (0.00-0.20); Basophils % (auto) 0.8 %; Eosinophils # (auto) 0.52 K/uL (0.00-0.50); Eosinophils % (auto) 5.6 %; Hematocrit (blood only) 44.9 % (42.0-52.0); Hemoglobin 15.3 g/dl (14.0-18.0); Immature Granulocytes # (auto) 0.04 K/uL (0.01-0.20); Immature Granulocytes % (auto) 0.4 %; Lymphocytes # (auto) 2.38 K/uL (1.20-3.40); Lymphocytes % (auto) 25.7 %; Mean Corpuscular Hemoglobin 30.7 pg (25.0-34.0); Mean Corpuscular Hgb Conc 34.1 g/dL (32.0-36.0); Mean Corpuscular Volume 90.2 fL (80.0-100.0); Mean Platelet Volume 10.2 fL (9.4-12.4); Monocytes # (auto) 0.67 K/uL (0.11-0.59); Monocytes % (auto) 7.2 %; Neutrophils # (auto) 5.59 K/uL (1.40-6.50); Neutrophils % (auto) 60.3 %; Platelet Count 293 K/uL (130-400); RDW Coefficient of Variation 12.3 % (11.5-14.5); RDW Standard Deviation 40.7 fL (36.4-46.3); Red Blood Count 4.98 M/uL (4.70-6.10); White Blood Count 9.27 K/ul (4.8-10.8)
[2023-11-26 14:22] LABS: Albumin Globulin Ratio 1.8 (0.9-2); BUN Creatinine Ratio 14.6 (10-20); Bilirubin,Total 0.3 mg/dl (0.2-1.0); Calcium 9.5 mg/dl (8.6-10.3); Creatinine Clr Calc Pharmacy 99.1 ml/min; Est GFR (African American) 107.8 ml/min; Globulin 2.8 gm/dl (2.5-4.0); Magnesium 1.9 mg/dl (1.7-2.4); Potassium 3.9 mmol/L (3.5-5.1); Total Protein 7.8 gm/dl (6.0-8.3)
--- NOTE | 2023-11-26 14:47 | Electrocardiogram Report ---
Test Reason : Blood Pressure : / mmHG Vent. Rate : 085 BPM Atrial Rate : 085 BPM P-R Int : 150 ms QRS Dur : 082 ms QT Int : 366 ms P-R-T Axes : 036 049 027 degrees QTc Int : 435 ms Normal sinus rhythm Normal ECG When compared with ECG of 22-AUG-2023 23:33, No significant change was found Confirmed by Shayan Lucero ([id number]) on 11/26/2023 2:47:15 PM Referred By: Confirmed By:Shayan Lucero
--- NOTE | 2023-11-26 14:51 | Emergency Department Note ---
History of Present Illness General Chief complaint: Syncope (Near Syncope) Stated complaint: LIGHTHEADED, CHEST PRESSURE Time Seen by Provider: 11/26/23 14:37 History of Present Illness NAME: KIMBERLEY HERRERA AGE: 38 SEX: M : 1985 ARRIVES VIA: Ambulance INFORMANT: Patient ED PROVIDER(S): JEAN PIERRE Farrell, Eddie Snow MD The patient is a 38-year-old male who arrives to the emergency department for evaluation of multiple syncopal episodes. He reports dizziness with ringing in his ears, and extreme fatigue. He states it is worsened over the last few years, but most recently in the last few days episodes have become closer together. He has no history of seizures, however states he has seen a neurologist. He reports the neurologist did a full workup and stated he believes it is a cardiovascular issue. He reports the neurologist informed him to follow-up with cardiology immediately as it is "life-threatening." The patient was unable to get into a window decorator, and today had another episode. He reports he lives at home alone, he does not feel safe, and has had episodes where he is fallen to the ground in his home or outside. He denies significant chest pain, shortness of breath, nausea, vomiting or fever. He is currently alert and oriented. Home Medications Medication Instructions Recorded Confirmed Type Cannabis 1 dose inhalation DIRECTED PRN 07/31/23 11/26/23 History NEEDED PER PT acetaminophen 500 mg tablet 500 mg PO DIRECTED PRN Pain 07/31/23 11/26/23 History (Tylenol Extra Strength) albuterol sulfate 90 mcg/actuation 1 inh inhalation DIRECTED PRN 07/31/23 11/26/23 History aerosol inhaler COUGH/WHEEZING/SHORT OF BREATH aspirin 325 mg tablet,delayed 325 mg PO DIRECTED PRN Pain 11/26/23 11/26/23 History release Allergies Allergy/AdvReac Type Severity Reaction Status Date / Time ibuprofen AdvReac Intermediate Gastrointestinal Verified 11/26/23 17:17 Upset Past Med/Surg History Problem List (Updated 11/26/23 @ 21:44 by JEAN PIERRE Baca) Seasonal asthma Former tobacco use Anxiety Antisocial personality disorder Schizoaffective disorder, depressive type Cannabis abuse Sensation of chest pressure Syncopal episodes (Acute) Medical History Alcohol abuse Depression Suspected COVID-19 virus infection Pneumomediastinum Cellulitis Pancreatitis Suicidal ideation Opiate abuse, continuous Homicidal ideation Surgical History History of surgery on arm Family History Father Epilepsy Social History Smoking Status: Former smoker Tobacco Type: Cigarettes Preferred Language: Bol[place]ian Feels Safe at Home: Yes Physical Exam Vital Signs Vital Signs - 24 hr 11/26/23 13:08 Temperature 36.5 C Temperature Source Temporal Artery Scan Pulse Rate 89 Respiratory Rate 18 Respiratory Effort / Characteristics Non-Labored Spontaneous Respiratory Depth Normal Respiratory Pattern Regular Blood Pressure 151/86 H Blood Pressure Mean 107 Pulse Oximetry 98 Oxygen Delivery Method Room Air Sepsis Recent Fever Within 48 Hours No Sepsis New/Unexplained Change in Mental Status N/A Sepsis Action Taken by Nursing No Action Required VITALS: Vitals are noted on the nurse's note and reviewed by myself. Vital signs stable. GENERAL: 38-year-old male, in no acute distress, nondiaphoretic, well-developed well-nourished. SKIN: The skin was without rashes, erythema, edema, or bruising. HEAD: Normocephalic atraumatic. HEART: Regular rate and rhythm without murmurs gallops or rubs. LUNGS: Clear to auscultation bilaterally without wheezes, rales or rhonchi. No retractions or accessory muscle use. ABDOMEN: Positive bowel sounds x 4. Soft, nontender, without masses or organomegaly. Kent sign negative. No guarding or rebound tenderness. MUSCULOSKELETAL: No muscle atrophy, erythema, or edema noted. Normal gait. Strength 5/5 throughout. NEURO: Patient was alert and oriented to person place and time. No focal neurological deficits. Course Administered Medications Sodium Chloride (Nss) 1,000 mls @ 125 mls/hr IV .Q8H ROSS Stop: 12/26/23 19:55 Last Admin: 11/26/23 20:32 Dose: 125 mls/hr Documented By: DEMETRIUS Discontinued Medications Sodium Chloride (Nss) 1,000 mls @ 999 mls/hr IV .Q1H1M ONE Stop: 11/26/23 15:51 Last Infusion: 11/26/23 21:27 Dose: Infused Documented By: Admin: 11/26/23 16:54 Dose: 999 mls/hr Documented By: FELIPAW Medical Decision Making Differential Diagnosis Benign positional vertigo, dehydration, hypovolemia, anemia, tumor, infection, hypoglycemia, electrolyte abnormalities, cardiac sources, intracerebral event, toxicologic, neurologic, as well as other pathologies. Medical Records Attestation: I reviewed the patient's medical records. Home Medications Current Medication List: was personally reviewed by me Laboratory Data Attestation: I reviewed the patient's lab results. No leukocytosis, stable hemoglobin and hematocrit, no electrolyte abnormalities, TSH within normal limits, urinalysis negative for infection, D-dimer negative, troponin negative. 11/26/23 12:57 11/26/23 12:57 Lab Results 11/26/23 11/26/23 Range/Units 12:57 13:52 WBC 9.27 (4.8-10.8) K/ul RBC 4.98 (4.70-6.10) M/uL Hgb 15.3 (14.0-18.0) g/dl Hct 44.9 (42.0-52.0) % MCV 90.2 (80.0-100.0) fL MCH 30.7 (25.0-34.0) pg MCHC 34.1 (32.0-36.0) g/dL RDW Std Deviation 40.7 (36.4-46.3) fL RDW Coeff of Eddie 12.3 (11.5-14.5) % Plt Count 293 (130-400) K/uL MPV 10.2 (9.4-12.4) fL Immature Gran % (Auto) 0.4 % Neut % (Auto) 60.3 % Lymph % (Auto) 25.7 % [place] % (Auto) 7.2 % Eos % (Auto) 5.6 % Baso % (Auto) 0.8 % Neut # (Auto) 5.59 (1.40-6.50) K/uL Lymph # (Auto) 2.38 (1.20-3.40) K/uL [place] # (Auto) 0.67 H (0.11-0.59) K/uL Eos # (Auto) 0.52 H (0.00-0.50) K/uL Baso # (Auto) 0.07 (0.00-0.20) K/uL Immature Gran # (Auto) 0.04 (0.01-0.20) K/uL D-Dimer 200 (0-500) ug/L FEU Sodium 136 (136-145) mmol/L Potassium 3.9 (3.5-5.1) mmol/L Chloride 104 (98-107) mmol/L Carbon Dioxide 22 (21-32) mmol/L Anion Gap 10 (3-11) BUN 15 (6-23) mg/dl Creatinine 1.03 (0.6-1.4) mg/dl Est Cr Clr Drug Dosing 99.1 ml/min Est GFR ( Amer) 107.8 ml/min Est GFR (Non-Af Amer) 93.0 ml/min BUN/Creatinine Ratio 14.6 (10-20) Glucose 88 (70-99(Fasting)) mg/dl Calcium 9.5 (8.6-10.3) mg/dl Magnesium 1.9 (1.7-2.4) mg/dl Total Bilirubin 0.3 (0.2-1.0) mg/dl AST 32 (13-39) U/L ALT 43 (7-52) U/L Alkaline Phosphatase 109 H (34-104) U/L Troponin I High Sens 3.0 (0-20) pg/ml Total Protein 7.8 (6.0-8.3) gm/dl Albumin 5.0 (3.4-5.0) gm/dl Globulin 2.8 (2.5-4.0) gm/dl Albumin/Globulin Ratio 1.8 (0.9-2) TSH 3.338 (0.300-4.500) uIu/ml Urine Color Yellow Urine Appearance Clear (Clear) Urine pH 5.5 (4.5-7.5) Ur Specific [place] 1.005 (1.000-1.030) Urine Protein Negative (Negative) Urine Glucose (UA) Negative (Negative) Urine Ketones Negative (Negative) Urine Blood Negative (Negative) Urine Nitrite Negative (Negative) Urine Bilirubin Negative (Negative) Urine Urobilinogen Negative (Negative) Ur Leukocyte Esterase Negative (Negative) Urine Opiates Screen Neg (Neg) Ur Methadone, Qual Neg (Neg) Urine Fentanyl Screen Neg (Neg) Urine Barbiturates Neg (Neg) Ur Phencyclidine (PCP) Neg (Neg) U Amphetamin/Meth Scrn Neg (Neg) MDMA (Ecstasy) Screen Neg (Neg) U Benzodiazepines Scrn Neg (Neg) Ur Cocaine Metabolite Neg (Neg) U Marijuana (THC) Screen Pos H (Neg) Imaging Data Radiologist's Impression: Head CT 11/26/23 14:59 CT OF THE HEAD WITHOUT CONTRAST CLINICAL HISTORY: Syncope. COMPARISON STUDY: Head CT January 31, 2016. CT DOSE: 781.9 mGy.cm TECHNIQUE: Helical axial images of the head were obtained without IV contrast. Automated exposure control was utilized for the study. A dose lowering technique was utilized adhering to the principles of ALARA. FINDINGS: No acute intracranial hemorrhage, midline shift or mass effect is present. The ventricular system is unremarkable. The basal cisterns are patent. No extra-axial collections are present. There are no findings to suggest acute dural sinus thrombosis or acute territorial infarct. No significant calvarial abnormalities are present. Visualized portions of the sinuses and mastoid air cells are clear. IMPRESSION: 1. No acute intracranial findings. 2. No calvarial fracture. ACT 112: Negative or not required by law. Electronically signed by: Chris Villanueva M.D. 11/26/2023 4:37 PM ECG Data Attestation: I personally reviewed and interpreted this ECG as follows: Indication: + syncope and + weakness Rate (beats per minute): 85 Rhythm: + normal sinus ECG [place]: + Normal ECG ST segments: + Normal ST segments Comparison ECG Date: from (08/21) Change: no significant change Blood Pressure Blood Pressure Findings: Elevated blood pressure Blood Pressure Disposition: elevated BP felt to be situational MDM Narrative The patient is a 38-year-old male who arrives to the emergency department for the above-stated complaint. Upon examination the patient appears weak, and slightly lethargic. Initial workup was performed in triage, including a saline lock, CBC, CMP, troponin, magnesium, EKG. CBC shows no leukocytosis, stable hemoglobin and hematocrit, CMP shows no significant electrolyte abnormalities, troponin was negative, magnesium within normal limits I did add a D-dimer, as well as a TSH removed which were both negative. EKG shows normal sinus rhythm at a rate of [address] elevation, depression, or ectopy. Most recent EKG in July 2023 which shows no significant change. CT imaging of the patient's head was obtained, which shows no acute ICH, fracture, or other concerns. I spoke with case management regarding hospital admission for the patient, who facilitated contact with the [facility] hospitalist group. The patient was accepted by the [facility] hospitalist group, as he requires further cardiac workup. Dr. Simpson will assume care of the patient at this time, please refer to his documentation for further patient care. Continuous bus driver/monitor: Order was placed for continuous bus driver/monitor. Patient was placed on the bus driver/monitor. Patient was noted to be in normal sinus rhythm at an initial rate of 70 bpm. Impression & Plan Syncopal episodes Discharge Plan Visit Data Chief Complaint: Syncope (Near Syncope) Stated Complaint: LIGHTHEADED, CHEST PRESSURE ED Provider: Eddie Snow ED Midlevel Provider: Jeanette Mendoza Discharge Problem: Syncopal episodes Patient Disposition: Admitted As Inpatient Discharge Instructions Interventions: ED Discharge Assessment Last Done: 11/26/23 19:56 Discharge Problem: Syncopal episodes Qualifiers: Syncope type: unspecified Qualified Code(s): R55 - Syncope and collapse
[2023-11-26 15:21] LABS: D Dimer 200 ug/L FEU (0-500)
[2023-11-26 15:37] LABS: Thyroid Stimulating Hormone 3.338 uIu/ml (0.300-4.500)
--- NOTE | 2023-11-26 16:38 | CT Scan Report ---
CT OF THE HEAD WITHOUT CONTRAST CLINICAL HISTORY: Syncope. COMPARISON STUDY: Head CT January 31, 2016. CT DOSE: 781.9 mGy.cm TECHNIQUE: Helical axial images of the head were obtained without IV contrast. Automated exposure con trol was utilized for the study. A dose lowering technique was utilized adhering to the principles o f ALARA. FINDINGS: No acute intracranial hemorrhage, midline shift or mass effect is present. The ventricular system is unremarkable. The basal cisterns are patent. No extra-axial collections are present. There are no findings to suggest acute dural sinus thrombosis or acute territorial infarct. No significant calvarial abnormalities are present. Visualized portions of the sinuses and mastoid air cells are claude ar. IMPRESSION: 1. No acute intracranial findings. 2. No calvarial fracture. ACT 112: Negative or not required by law. Electronically signed by: Chris Villanueva M.D. 11/26/2023 4:37 PM
--- NOTE | 2023-11-26 16:46 | History & Physical Report ---
Date of Service November 26, 2023 Assessment & Plan (1) Syncopal episodes: (2) Sensation of chest pressure: Plan: Beto Tinajero is a 38y/o M with PMHx of Chronic maxillary sinusitis, seizure- like activity, marijuana use, anxiety/chronic PTSD, major depressive disorder w/o psychotic features, hx of pancreatitis, former tobacco use and other problems listed below who presented to the ER today for evaluation of ongoing frequent syncopal episodes w/ associated lightheadedness and chest pressure. According to [facility] documentation, appears patient has had these syncopal episodes for a few months now and is currently following with [facility] [Dr. Irais Desir]. Patient's most recent visit with Dr. Desir was on 11/23/2023. At that time, his impression was to have the patient be seen rather imminently d/t major concern of a life-threatening cardiac issue that may be contributing to the syncopal spells he has been having. According to that visit documentation, patient was supposed f/u up with cardiology in the outpatient setting but he ultimately canceled his last cardiology appointment. Patient was initially seen by [facility] on 08/11/2023 following a visit to [facility] ED [occurring 07/31/23] for evaluation of the same symptoms that he is presenting with today. At that initial visit with neurology, Dr. Desir mentions in his documentation that the syncopal spells are not neurologic in origin but are rather resulting from hypotension, perhaps d/t a potential cardiac arrhythmia. It was during that appointment that the patient was ultimately referred to cardiology. However, as per above, he did not see car diology. Per [facility] documentation, he was supposed to see JEAN PIERRE Weaver @ [facility] on 08/23/23. Patient was seen again in the ED here @ [facility] on 08/22/2023 for evaluation of the same syncopal episodes. Troponin and D-dimer x 1 both negative at that time. Negative RVP, chest x-ray showed no acute processes. He was ultimately discharged home following a negative workup. It appears patient was to have a loop recorder in the outpatient setting per previous documentation(?), but has not done so. Patient mentions he is supposed to see [facility] next week on Wednesday [11/30], which is confirmed with Epic documentation. He does mention that his father has epilepsy, but he himself was never previously tested for seizures. Vitals appear stable in the ED. BP slightly elevated at 151/86, HR stable at 89 bpm. Currently 98% O2 sat on RA, no fever present. Labs performed in ED rather unremarkable, no signs of an acute infectious process occurring. No acute electrolyte abnormalities. D-dimer negative, UA unremarkable. EKG interpreted by Dr. Shayan Lucero and reveals the following: NSR w/ HR 85bpm, QRS Dur 82ms, P-R Int 150ms, QT/QTc Int 366/435ms. When compared to most recent EKG done on 08/22/2023, no significant change was found. Chest x-ray negative for any acute cardiopulmonary findings. Head CT shows no acute intracranial findings, no calvarial fracture. He will require further cardiac and neurologic workup/evaluation. -As per above, neurology and cardiology consults placed. Appreciate their input/recommendations. -Cardiac workup thus far w/ echo, orthostatic vitals and chest x-ray [at this time, pending proper eval]. -Also included in cardiac workup is troponin level, which is currently pending. Will follow results. -Neurologic workup to include EEG, brain MRI [at this time, pending proper eval ]. -Fall precautions, BMP and CBC no diff in AM. Continuous cardiac monitoring. -Bowel regimen in place, no recent changes in his bowel habits per HPI. -Urine drug screen pending, will follow results. Continue IVF w/ NSS. (3) Former tobacco use: (4) Seasonal asthma: Plan: Currently 98% O2 sat on RA, no acute distress or SOB. No need for any supplemental oxygen therapy at this time. -Will continue CANDLE MAKER PRN albuterol inhaler for any SOB/wheezing that may develop throughout hospitalization. (5) Antisocial personality disorder: (6) Schizoaffective disorder, depressive type: (7) Cannabis abuse: (8) Anxiety: Plan: Does report multiple episodes of cannabis use daily [smokes it] --> ? Could this be contributing to these syncopal episodes As discussed in the HPI, patient does not suspect that his can cannabis use is a contributing factor to the ongoing symptoms that he has been experiencing and is presenting with today. Hard to make that determination given chronic use and inability to confirm exact strength/dosing. May very well be a contributing factor, however, cannot make that determination without proper jg rological/cardiology cardiac workup. -Not currently on any psychiatric medication regimen upon admission. -Continue to monitor for any abnormal behavior/aggression or any signs of delirium. DVT Prophylaxis: SCDs - For now. Code Status: Full Code PCP: Idalia Houser MD Dispo: Admit to Med/Surg w/ Telemetry Patient seen in collaboration with Dr. Mascorro. Please see addendum. I spent a total of 75 minutes coordinating, documenting, and providing care for this patient excluding time spent in the performance of separately billed services. This included personally reviewing all current laboratories and imaging studies, medical reconciliation, outpatient chart review and discussion with specialists. This chart was completed in part utilizing Speech Voice Recognition Software. Grammatical errors, random word insertions, pronoun errors, and incomplete sentences are an occasional consequence of this system due to software limitations, ambient noise, and hardware issues. Any formal questions or concerns about the content, text, or information contained within the body of this dictation should be directly addressed to the provider for clarification. History of Present Illness Chief Complaint: Frequent syncopal episodes w/ associated lightheadedness and chest pressure Primary Care Provider: Idalia Houser MD Beto Tinajero is a 38y/o M with PMHx of chronic maxillary sinusitis, seizure-like activity, marijuana use, anxiety/chronic PTSD, major depressive disorder w/o psychotic features, schizoaffective disorder, hx of pancreatitis, former tobacco use and other problems listed below who presented to the ER today for evaluation of ongoing frequent syncopal episodes w/ associated lightheadedness and chest pressure. History obtained from patient, and associated ED/PCP/specialist records. According to [facility] documentation, appears patient has had these syncopal episodes for a few months now and is currently following with [facility] [Dr. Irais Desir]. Patient's most recent visit with Dr. Desir was on 11/23/2023. At that time, his impression was to have the patient be seen rather imminently d/t major concern of a life-threatening cardiac issue that may be contributing to the syncopal spells he has been having. According to that visit documentation, patient was supposed f/u up with cardiology in the outpatient setting but he ultimately canceled his last cardiology appointment. Patient was initially seen by [facility] on 08/11/2023 following a visit to [facility] ED [occurring 07/31/23] for evaluation of the same symptoms that he is presenting with today. At that initial visit with neurology, Dr. Desir mentions in his documentation that the syncopal spells are not neurologic in origin but are rather resulting from hypotension, perhaps d/t a potential cardiac arrhythmia. It was during that appointment that the patient was ultimately referred to cardiology. However, as per above, he did not see cardiology. Per [facility] documentation, he was supposed to see JEAN PIERRE Weaver @ [facility] on 08/23/23. Of note, Dr. Desir prohibited him from driving during that neurology visit in July. Patient was seen again in the ED here @ [facility] on 08/22/2023 for evaluation of the same syncopal episodes. Troponin and D-dimer x 1 both negative at that time. Negative RVP, chest x-ray showed no acute processes. He was ultimately discharged home following a negative workup. It appears patient was to have a loop recorder in the outpatient setting, but has not done so. Patient mentions he is supposed to see [facility] next week on Wednesday [11/30], which is confirmed with Epic documentation. Vitals appear stable in the ED. BP slightly elevated at 151/86, HR stable at 89 bpm. Currently 98% O2 sat on RA, no fever present. Labs performed in ED rather unremarkable, no signs of an acute infectious process occurring. No acute electrolyte abnormalities. D-dimer negative, UA unremarkable. Chest x-ray negative for any acute cardiopulmonary findings. Head CT shows no acute intracranial findings, no calvarial fracture. Patient seen at bedside. Patient reports ongoing, intermittent tinnitus in both ears for the past approximately 5 to 10 years. Over the past couple of years, he has had these "syncopal" episodes occurring rather randomly. He states that during these episodes he becomes very lightheaded, his vision becomes altered and then he kind of subsequently "zones out." He does not pass out during every episode, however, there have been witnessed incidences of him fainting/passing out. Patient mentions that approximately 8 years ago he had one of these spells that was ultimately witnessed, and he was subsequently treated at [facility]. Patient states they conducted an echo at that time, which revealed "air around his heart." He reports that nothing came about that, and he has not been following with anybody regarding that incident since then. The only recent previous imaging I can see in [facility] is a CT of his head/brain w/o contrast that was conducted on 02/01/2023, which revealed no acute intracranial abnormality. Following the spells, he cannot really remember what happened and sometimes becomes rather fatigued for days following an episode. Patient states there was an incidence where he was severely fatigued for 3 days following an episode. He does mention that his father has epilepsy, but he was never properly tested for potentially having seizure activity. He currently denies any urinary or bowel issues. He does have a history of palpitations, but is currently not having any palpitations or SOB. He does sometimes have a headache with these episodes as well. He does not have any previous cardiac history, except as per above. He does report some ongoing issues with weakness/fatigue in his legs, which happens occasionally and resolves within a couple of days each time. Most recently, he has not had any issues with ambulation at home. He does live in an apartment alone, which worries him given his hx of these episodes and the potential for him to not have anyone around if something more insidious were to occur [i.e., becoming unresponsive, hitting his head, etc.]. He denies any recent head trauma or falls. No numbness/tingling in any of his extremities or resting tremor. He did have one of these episodes earlier today with associated chest pressure, which has subsequently subsided. He is not currently lightheaded or dizzy. Of note, he can feel these episodes coming on. He is now aware to brace himself and place his body in a safe position in case he were to lose consciousness/become unresponsive. Feels he is currently at baseline. Looking for answers at this point. Allergies Allergy/AdvReac Type Severity Reaction Status Date / Time ibuprofen AdvReac Intermediate Gastrointestinal Verified 11/26/23 17:17 Upset Home Medications Medication Instructions Recorded Confirmed Type Cannabis 1 dose inhalation DIRECTED PRN 07/31/23 11/26/23 History NEEDED PER PT acetaminophen 500 mg tablet 500 mg PO DIRECTED PRN Pain 07/31/23 11/26/23 History (Tylenol Extra Strength) albuterol sulfate 90 mcg/actuation 1 inh inhalation DIRECTED PRN 07/31/23 11/26/23 History aerosol inhaler COUGH/WHEEZING/SHORT OF BREATH aspirin 325 mg tablet,delayed 325 mg PO DIRECTED PRN Pain 11/26/23 11/26/23 History release Past Med/Surg History Problem List (Updated 11/26/23 @ 21:44 by JEAN PIERRE Baca) Seasonal asthma Former tobacco use Anxiety Antisocial personality disorder Schizoaffective disorder, depressive type Cannabis abuse Sensation of chest pressure Syncopal episodes (Acute) Medical History Alcohol abuse Depression Suspected COVID-19 virus infection Pneumomediastinum Cellulitis Pancreatitis Suicidal ideation Opiate abuse, continuous Homicidal ideation Surgical History History of surgery on arm Family History Father Epilepsy Social History Smoking Status: Former smoker Tobacco Type: Cigarettes Smoking End Date: 09/27/2023; Second Hand Exposure: Yes; Hx Alcohol Use: Yes Hx Substance Use: Yes Last Used Substance: Just Prior to Arrival Last Used 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:: marijuana use CANDLE MAKER Substance Use Type Other:: plisobian mushrooms occasionally Preferred Language: Bulgarian Communication Ability: Effective Real Property Evaluator Required: No Beliefs That Will Affect Care: None Current Living Situation: Alone Other Information That Helps Us Care for You: No Feels Safe at Home: Yes Safety Concerns: Feels Safe At This Time Assistive Devices: Glasses Review of Systems Review of Systems: At least ten systems reviewed and negative, except as noted in the HPI. Physical Exam Physical Exam: General Appearance: WD/WN, vitals as above, NAD, conversing appropriately. Head: Normocephalic, atraumatic. Eyes: Normal inspection, PERRL, conjunctivae normal, anicteric sclerae. ENT: External ear and nose normal, oropharynx normal. Neck: Normal visual inspection, trachea midline, no thyromegaly. Respiratory: Normal respiratory effort, lungs clear to auscultation, some mild wheezing throughout, no rales, rhonchi. No accessory muscle use. Cardiovascular: Regular rate, rhythm, no murmur, normal peripheral pulses, no BLE edema. Vessels: No JVD. Chest: Normal inspection of chest. Abdomen/GI: Normal bowel sounds, soft, nontender, no hepatosplenomegaly. Extremities/Musculoskeletal: No cyanosis or clubbing, extremities motor strength 5/5. Neurologic: PERRL, EOMI, accommodation nl, no face palsy, no dysarthria, CN's II-XI grossly intact bilaterally and moves all extremities. Psychiatric: A+Ox3, euthymic affect. Skin: No rashes, normal color, warm/dry. Results & Data Results & Data Vital Signs (Past 12 Hours) Vital Signs Temp Pulse Resp BP Pulse Ox O2 Del Method 11/26/23 13:08 36.5 C 89 18 151/86 H 98 Room Air Laboratory Results Short CBC 11/26/23 Range/Units 12:57 WBC 9.27 (4.8-10.8) K/ul Hgb 15.3 (14.0-18.0) g/dl Hct 44.9 (42.0-52.0) % Plt Count 293 (130-400) K/uL BMP 11/26/23 12:57 Sodium 136 Potassium 3.9 Chloride 104 Carbon Dioxide 22 BUN 15 Creatinine 1.03 Glucose 88 Calcium 9.5 Liver Function 11/26/23 Range/Units 12:57 Total Bilirubin 0.3 (0.2-1.0) mg/dl AST 32 (13-39) U/L ALT 43 (7-52) U/L Alkaline Phosphatase 109 H (34-104) U/L Albumin 5.0 (3.4-5.0) gm/dl Urine 11/26/23 Range/Units 13:52 Urine Color Yellow Urine Appearance Clear (Clear) Urine pH 5.5 (4.5-7.5) Ur Specific [place] 1.005 (1.000-1.030) Urine Protein Negative (Negative) Urine Glucose (UA) Negative (Negative) Diagnostic Findings Head CT 11/26/23 14:59 CT OF THE HEAD WITHOUT CONTRAST CLINICAL HISTORY: Syncope. COMPARISON STUDY: Head CT January 31, 2016. CT DOSE: 781.9 mGy.cm TECHNIQUE: Helical axial images of the head were obtained without IV contrast. Automated exposure control was utilized for the study. A dose lowering technique was utilized adhering to the principles of ALARA. FINDINGS: No acute intracranial hemorrhage, midline shift or mass effect is present. The ventricular system is unremarkable. The basal cisterns are patent. No extra-axial collections are present. There are no findings to suggest acute dural sinus thrombosis or acute territorial infarct. No significant calvarial abnormalities are present. Visualized portions of the sinuses and mastoid air cells are clear. IMPRESSION: 1. No acute intracranial findings. 2. No calvarial fracture. ACT 112: Negative or not required by law. Electronically signed by: Chris Villanueva M.D. 11/26/2023 4:37 PM Chest X-Ray 11/26/23 16:05 XR chest 1V portable CLINICAL HISTORY: Cardiac work-up COMPARISON STUDY: Chest CT November 02, 2019. Chest radiograph August 23, 2023. FINDINGS: Lung volumes are normal. Lungs are clear. There is no pneumothorax or pleural effusion. Cardiac size is normal. Mediastinal contours are normal. There is no evidence for pulmonary edema. IMPRESSION: No acute cardiopulmonary findings. ACT 112: Negative or not required by law. Electronically signed by: Chris Villanueva M.D. 11/26/2023 5:09 PM Medications Administered Discontinued Medications Sodium Chloride (Nss) 1,000 mls @ 999 mls/hr IV .Q1H1M ONE Stop: 11/26/23 15:51 Last Admin: 11/26/23 16:54 Dose: 999 mls/hr Documented By: ASW ECG Additional Comments: EKG interpreted by Dr. Shayan Lucero and reveals the following: NSR w/ HR 85bpm, QRS Dur 82ms, P-R Int 150ms, QT/QTc Int 366/435ms. When compared to most recent EKG done on 08/22/2023, no significant change was found. Code Status & VTE Plan Code Status FULL CODE VTE Prophylaxis Plan VTE Prophylaxis will be ordered: Yes Supervising Physician Co-Signing Physician Notes delayed entry date of service noted above Attending Addendum: care coordinated with GARCIA Sheppard please refer to her notes for full details, I agree with her notes patient seen and examined, records reviewed by myself as well Diagnoses and plan of care as per GARCIA Sheppard's notes Osvaldo Mascorro MD (1) Syncopal episodes Syncope type: unspecified Qualified Code(s): R55 - Syncope and collapse
[2023-11-26] MEDS: SODIUM CHLORIDE 0.9% 1,000 ML IV ONE (16:54)
--- NOTE | 2023-11-26 17:11 | XRay Report ---
XR chest 1V portable CLINICAL HISTORY: Cardiac work-up COMPARISON STUDY: Chest CT November 02, 2019. Chest radiograph August 23, 2023. FINDINGS: Lung volumes are normal. Lungs are clear. There is no pneumothorax or pleural effusion. Car diac size is normal. Mediastinal contours are normal. There is no evidence for pulmonary edema. IMPRESSION: No acute cardiopulmonary findings. ACT 112: Negative or not required by law. Electronically signed by: Chris Villanueva M.D. 11/26/2023 5:09 PM
[2023-11-26] MEDS ORDERED: ASPIRIN 325 MG ECTAB PO PRN (19:09)
[2023-11-26] MEDS ORDERED: ALBUTEROL HFA 8 GM INHALER INH PRN ×2 (19:09→19:56)
[2023-11-26] MEDS ORDERED: MAGNESIUM HYDROXIDE SUSP 30 ML UDC PO PRN (19:56)
[2023-11-26] MEDS ORDERED: ONDANSETRON INJ 2 MG/ML 2 ML VIAL IV PRN (19:56)
[2023-11-26] MEDS ORDERED: ALUMINUM/MAGNESIUM SUSP 30 ML UDC PO PRN (19:56)
[2023-11-26] MEDS ORDERED: POLYETHYLENE (MIRALAX) 17 GM PACK PO PRN (19:56)
[2023-11-26 20:00] LABS: Amphetamines+Metham, Urine Neg (Neg); Barbiturates, Urine Neg (Neg); Benzodiazepine, Urine Neg (Neg); Cocaine, Urine Neg (Neg); Fentanyl, Urine Neg (Neg); MDMA (Ecstacy), Urine Neg (Neg); Marijuana, Urine Pos (Neg); Methadone, Urine Neg (Neg); Opiate, Urine Neg (Neg); Phencyclidine, Urine Neg (Neg)
[2023-11-26] MEDS: SODIUM CHLORIDE 0.9% 1,000 ML IV SCH (20:32)
--- NOTE | 2023-11-26 20:34 | XRay Report ---
ORBIT RADIOGRAPHS 3 VIEWS HISTORY: pre-MRI screening. COMPARISON: Head CT November 26, 2023. FINDINGS: There are no radiopaque foreign bodies identified within the orbits. IMPRESSION: No radiopaque foreign bodies identified within the orbits. ACT 112: Negative or not required by law. Electronically signed by: Chris Villanueva M.D. 11/26/2023 8:31 PM
[2023-11-26] MEDS: LORazepam 0.5 MG TAB PO STA (21:54)
--- NOTE | 2023-11-27 01:37 | Magnetic Resonance Report ---
Exam(s): MRI HEAD Without Contrast EXAM: MR Head Without Intravenous Contrast CLINICAL HISTORY: Reason for exam: Frequent syncopal episodes. TECHNIQUE: Magnetic resonance images of the head/brain without intravenous contrast in multiple planes. COMPARISON: Comparison made to prior head CT from November 26, 2023. FINDINGS: Brain: Unremarkable. No mass. No hemorrhage. No acute infarct. The flow voids at the base of the right are intact. Ventricles: Unremarkable. No ventriculomegaly. Bones/joints: Unremarkable. No acute fracture. Sinuses: Chronic maxillary and ethmoid sinusitis. No acute sinusitis. Mastoid air cells: Unremarkable as visualized. No mastoid effusion. Orbits: Unremarkable as visualized. IMPRESSION: Negative MRI of the brain. Electronically signed by: Minal Ying MD 11/27/23 01:36 AM
[2023-11-27 03:42] VITALS: RESP 16
[2023-11-27 06:50] LABS: Hematocrit (blood only) 42.7 % (42.0-52.0); Hemoglobin 14.5 g/dl (14.0-18.0); Mean Corpuscular Hemoglobin 30.9 pg (25.0-34.0); Mean Corpuscular Volume 90.9 fL (80.0-100.0); Mean Platelet Volume 9.9 fL (9.4-12.4); Platelet Count 250 K/uL (130-400); RDW Coefficient of Variation 12.3 % (11.5-14.5); White Blood Count 6.64 K/ul (4.8-10.8)
--- NOTE | 2023-11-27 07:25 | Cardiology Consultation ---
Date of Consultation November 27, 2023 Assessment & Plan (1) Syncopal episodes: (2) Sensation of chest pressure: Plan IMPRESSION 38 year old male with episodes of recurrent syncope accompanied by chest pressure HS trop negative. Prior echo showing a structurally normal heart. Zio 04/2023 without arrhythmia. Telemetry unremarkable this admission. Plans to have an EEG today PLAN: Monitor on telemetry while inpatient. Echo pending. No Driving x6 months from last syncopal episode. Patient to follow up with cardiology of 12/01/2023- consider Linq insert +/- stress testing. Case discussed with Dr. Hi. Further recommendations pending assessment. I spent a total of 60 minutes on the date of service in preparation, delivery, and documentation of the care provided to the patient excluding any time spent in the performance of separately billed services. JEAN PIERRE Weaver Department of Cardiology, [facility] This chart was completed in part utilizing Speech Voice Recognition Software. Grammatical errors, random word insertions, pronoun errors, and incomplete sentences are an occasional consequence of this system due to software limitations, ambient noise, and hardware issues. Any formal questions or concerns about the content, text, or information contained within the body of this dictation should be directly addressed to the provider for clarification. Supervising Physician Co-Signing Physician Notes I have personally performed a history and physical examination on the patient. I have reviewed the advance practitioner's documentation, and I agree with, and take responsibility for the plan of care. 38-year-old male admitted with near syncope. Symptoms intermittent over the past 2 years. Describes sensation of "feeling off" which at times progresses to severe fatigue, lightheadedness, and occasionally, overt syncope. Has noted both minor head trauma and knee injuries in the past associated with syncopal episodes. Prior ZIO monitor without symptomatic dysrhythmia. Normal telemetry, ECG, and echocardiogram on admission. Notes occasional palpitations suggestive of symptomatic ventricular ectopy. He is scheduled for EEG today. Recommend outpatient loop recorder implantation pending results of EEG. Patient is scheduled for cardiology follow-up 12/01/2023. I spent a total of 30 minutes on the date of service in preparation, delivery, and documentation of the care provided to this patient, excluding any time spent in the performance of separately billed services. History of Present Illness Reason for Consultation: Syncope Requesting Physician: Ida hospitalist Attending Physician: Osvaldo Mascorro MD History of Present Illness 38-year-old male who presented to [facility] emergency department after the recommendations from his neurologist due to recurrent syncopal episodes. Episodes associated with lightheadedness and chest pressure. Feels poorly for hours prior to the event. Did admit to marijuana use and 2 glasses of wine prior to most recent episode. Has had multiple emergency department visits for similar concerns. Notes that he is only ever had 1 episode that was witnessed by a friend. Notes that he was out for approximately 5 minutes. April 2023 an outpatient ZIO monitor was completed for similar symptoms. Patient was primarily in sinus rhythm with an average heart rate in the mid 80s. Triggered events of lightheadedness and chest pressure correlated with sinus tach and PVCs. There were no arrhythmias. Echocardiogram revealed a structurally normal heart at that time. Patient was to follow-up with the undersigned as an outpatient in July 2023 however canceled this appointment. Inpatient lab workup thus far has been unremarkable including a high-sensitivity troponin negative x 2. Patient was positive for marijuana on tox screen. EKG showing normal sinus rhythm, [address] segment changes. Head CT and brain MRI unremarkable. Chest x-ray without acute changes. Telemetry: SR 50-80s Upon entrance into the room patient resting in bed. Note acute concerns. No syncope while admitted. Tele has been unremarkable. Past medical history: Anxiety/PTSD; Follows with neurology History of seizure-like activity Syncope Palpitations secondary to sensed PVCs; structurally normal heart per echo 04/2023 Marijuana use Former tobacco use Allergies Allergy/AdvReac Type Severity Reaction Status Date / Time ibuprofen AdvReac Intermediate Gastrointestinal Verified 11/26/23 17:17 Upset Home Medications Medication Instructions Recorded Confirmed Type Cannabis 1 dose inhalation DIRECTED PRN 07/31/23 11/26/23 History NEEDED PER PT acetaminophen 500 mg tablet 500 mg PO DIRECTED PRN Pain 07/31/23 11/26/23 History (Tylenol Extra Strength) albuterol sulfate 90 mcg/actuation 1 inh inhalation DIRECTED PRN 07/31/23 11/26/23 History aerosol inhaler COUGH/WHEEZING/SHORT OF BREATH aspirin 325 mg tablet,delayed 325 mg PO DIRECTED PRN Pain 11/26/23 11/26/23 History release Patient History Medical History Alcohol abuse Depression Suspected COVID-19 virus infection Pneumomediastinum Cellulitis Pancreatitis Suicidal ideation Opiate abuse, continuous Homicidal ideation Surgical History History of surgery on arm Family History Father Epilepsy Social History Smoking Status: Former smoker Tobacco Type: Cigarettes Smoking End Date: 09/27/2023; Second Hand Exposure: Yes; Hx Alcohol Use: Yes Hx Substance Use: Yes Last Used Substance: Just Prior to Arrival Last Used 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:: 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 Substance Use Type Other:: plisobian mushrooms occasionally Preferred Language: Mexican Communication Ability: Effective Inventory Control Specialist Required: No Beliefs That Will Affect Care: None Current Living Situation: Alone Other Information That Helps Us Care for You: No Feels Safe at Home: Yes Safety Concerns: Feels Safe At This Time Assistive Devices: Glasses Review of Systems Review of Systems: All systems reviewed & are unremarkable except as noted in HPI & below Physical Exam Eyes: PERRL, conjunctivae normal, anicteric sclerae Neck: normal visual inspection and trachea midline Respiratory: normal respiratory effort, lungs clear to auscultation Cardiovascular: RRR, no murmur, no edema Vessels: no JVD Extremities: no edema Gastrointestinal (Abdomen): normal bowel sounds, soft, nontender, no hepatosplenomegaly Musculoskeletal: no cyanosis or clubbing, extremities motor strength 5/5 Skin: no rashes, warm and dry Neurologic: PERRL, EOMI, accommodation nl, no face palsy, no dysarthria Psychiatric: A+Ox3, euthymic affect Results & Data Vital Signs (Past 12 Hours) Vital Signs Temp Pulse Pulse Resp BP Pulse Ox O2 Del Method 11/27/23 07:02 66 11/27/23 03:09 36.5 C 66 16 121/72 98 Room Air 11/26/23 23:30 Room Air 11/26/23 23:11 37 C 67 17 150/98 H 93 Room Air 11/26/23 23:09 72 11/26/23 19:22 89 18 158/95 H 100 Room Air 11/26/23 19:18 100 Room Air Laboratory Results Cardiac Enzymes 11/26/23 11/26/23 Range/Units 12:57 19:07 AST 32 (13-39) U/L Troponin I High Sens 3.0 < 2.3 (0-20) pg/ml CBC 11/26/23 11/27/23 Range/Units 12:57 05:53 WBC 9.27 6.64 (4.8-10.8) K/ul RBC 4.98 4.70 (4.70-6.10) M/uL Hgb 15.3 14.5 (14.0-18.0) g/dl Hct 44.9 42.7 (42.0-52.0) % Plt Count 293 250 (130-400) K/uL Neut # (Auto) 5.59 (1.40-6.50) K/uL Lymph # (Auto) 2.38 (1.20-3.40) K/uL [place] # (Auto) 0.67 H (0.11-0.59) K/uL Eos # (Auto) 0.52 H (0.00-0.50) K/uL Baso # (Auto) 0.07 (0.00-0.20) K/uL Comprehensive Metabolic Panel 11/26/23 11/27/23 Range/Units 12:57 05:53 Sodium 136 140 (136-145) mmol/L Potassium 3.9 TNP (3.5-5.1) mmol/L Chloride 104 108 H (98-107) mmol/L Carbon Dioxide 22 26 (21-32) mmol/L BUN 15 15 (6-23) mg/dl Creatinine 1.03 0.83 (0.6-1.4) mg/dl Glucose 88 85 (70-99(Fasting)) mg/dl Calcium 9.5 8.4 L (8.6-10.3) mg/dl AST 32 (13-39) U/L ALT 43 (7-52) U/L Alkaline Phosphatase 109 H (34-104) U/L Total Protein 7.8 (6.0-8.3) gm/dl Albumin 5.0 (3.4-5.0) gm/dl Intake and Output 11/26/23 11/27/23 11/27/23 22:59 06:59 14:59 Intake Total 1000 / 2240 1240 / 2240 Balance 1000 / 2240 1240 / 2240 Intake: IV 999 1000 / 1999 Sodium Chloride 0.9% 1,000 ml @ 999 / 1999 125 mls/hr IV .Q8H [facility] Rx#: [id number] Oral 240 / 240 Other: Weight 73.709 kg Weight Measurement Method Standing Scale Diagnostic Findings Outpatient ZIO monitor 05/24/2023 Preliminary Findings Prepared by Grecia Segundo, OPHELIA 06/13/23 Patient had a min HR of 48 bpm, max HR of 169 bpm, and avg HR of 88 bpm. Predominant underlying rhythm was Sinus Rhythm. Isolated SVEs were rare (<1.0%), SVE Couplets were rare (<1.0%), and SVE Triplets were rare (<1.0%). Isolated VEs were rare (<1.0%), and no VE Couplets or VE Triplets were present. Patient recorded 8 event markers and 12 diary entries with symptoms of lightheadedness and skipped heartbeats. Episodes correlated with sinus tachycardia and four sensed ventricular ectopic beats Impression: Sinus and sinus tachycardia with mildly elevated average heart rate of 88 beats per minute with rare atrial and ventricular ectopy and no arrhythmias Echo 05/07/2023 outpatient The examination is adequate to evaluate the referral indication. The resting echocardiography examination is normal. (1) Syncopal episodes Syncope type: unspecified Qualified Code(s): R55 - Syncope and collapse
[2023-11-27 08:00] LABS: Anion Gap 6 (3-11); BUN Creatinine Ratio 18.1 (10-20); Blood Urea Nitrogen 15 mg/dl (6-23); Calcium 8.4 mg/dl (8.6-10.3); Carbon Dioxide 26 mmol/L (21-32); Chloride 108 mmol/L (98-107); Est GFR (African American) 131.2 ml/min; Est GFR (Non-African American) 113.2 ml/min; Glucose 85 mg/dl (70-99(Fasting)); Sodium 140 mmol/L (136-145)
[2023-11-27 11:32] VITALS: BP 137/83; PULSE 83; TEMP 98.2; O2SAT 99
[2023-11-27] MEDS: ACETAMINOPHEN 325 MG TAB PO PRN (11:45)
--- NOTE | 2023-11-27 14:31 | Neurology Consultation ---
Date of Consultation November 27, 2023 Assessment & Plan (1) Syncopal episodes: Beto Tinajero is a 38 yo M presenting with episodes of loss of consciousness. Semiology of these events is not consistent with seizure. Negative MRI is further reassuring. Agree with plan for loop recorder. Inter-ictal routine EEG is of limited utility. Would be more reasonable to schedule ambulatory EEG monitoring if the loop recorder is unremarkable. No event has been caught in a medical setting. -- Outpatient EEG/ambulatory EEG -- Agree with loop monitor -- Would not start empiric AED given history Telehealth Consultation Telehealth Information Telehealth Information: I performed this visit using a real-time telehealth connection between my location and the patients location ([facility]). After connecting through interactive tele-video, patient was identified by name and date of and/or wristband check.Patient (or authorized healthcare jewelry sales representative) was informed that this was a telemedicine visit and it was being conducted confidentially over secure lines. My office door was closed and no one else was present in the room with me.Patient (or authorized healthcare jewelry sales representative) provided consent to proceed with the visit, expressed an understanding of privacy and security of the telemedicine visit, and gave permission to have a hospital jewelry sales representative in the room in order to assist with the visit and to conduct portions of the visit, as needed. I informed the patient (or authorized healthcare jewelry sales representative) that I reviewed their record and presented the opportunity for them to ask any questions regarding the visit today. The patient agreed to participate. History of Present Illness Reason for Consultation: Recurrent loss of consciousness Requesting Physician: Dr. Barraza Attending Physician: Ronald Barraza MD History of Present Illness Beto Tinajero is a 38 yo M presenting with multiple episodes of loss of consciousness over the past 2 years. He lives alone and reports having only 3 witnessed episodes but is concerned he may be missing some occurrences. He reports significant warning where he will feel generally weak and have severe fatigue. He develops tunnel vision and slowly loses control of his body while maintaining awareness until he stops moving. Per one described episode he was pale and laying on the floor for 5 minutes before waking up. Because he lives alone he is scared he wont wake back up and so comes to the ED for monitoring when he feels that an episode may be happening. He denies any tongue bite or urinary incontinence, he has a family history of seizures in his father but no personal history of seizures. No witnessed shaking during the episodes where there was a bystander. The events have never occurred more frequently than 3 days apart. Allergies Allergy/AdvReac Type Severity Reaction Status Date / Time ibuprofen AdvReac Intermediate Gastrointestinal Verified 11/26/23 17:17 Upset Home Medications Medication Instructions Recorded Confirmed Type Cannabis 1 dose inhalation DIRECTED PRN 07/31/23 11/26/23 History NEEDED PER PT acetaminophen 500 mg tablet 500 mg PO DIRECTED PRN Pain 07/31/23 11/26/23 History (Tylenol Extra Strength) albuterol sulfate 90 mcg/actuation 1 inh inhalation DIRECTED PRN 07/31/23 11/26/23 History aerosol inhaler COUGH/WHEEZING/SHORT OF BREATH aspirin 325 mg tablet,delayed 325 mg PO DIRECTED PRN Pain 11/26/23 11/26/23 History release Patient History Medical History Alcohol abuse Depression Suspected COVID-19 virus infection Pneumomediastinum Cellulitis Pancreatitis Suicidal ideation Opiate abuse, continuous Homicidal ideation Surgical History History of surgery on arm Family History Father Epilepsy Social History Smoking Status: Former smoker Tobacco Type: Cigarettes Smoking End Date: 09/27/2023; Second Hand Exposure: Yes; Hx Alcohol Use: Yes Hx Substance Use: Yes Last Used Substance: Just Prior to Arrival Last Used 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 Oriented to person, place, and time. Fluent. Comprehension intact. Affect appropriate. Cranial Nerves: II: pupils 3/3 to 2/2 III/IV/: Versions intact without nystagmus, no gaze preference. VII: Facial expression symmetric VIII: Hearing intact to voice Motor: Strength was symmetric and antigravity throughout. Pronator drift was absent. There were no abnormal movements. Reflexes: Unable to assess over telemedicine Results & Data Vital Signs (Past 12 Hours) Vital Signs Temp Pulse Pulse Resp BP Pulse Ox O2 Del Method 11/27/23 11:31 36.8 C 83 16 137/83 99 Room Air 11/27/23 08:06 36.5 C 63 16 147/74 H 96 Room Air 11/27/23 07:02 66 11/27/23 03:09 36.5 C 66 16 121/72 98 Room Air Laboratory Results Abnormal lab results 11/26/23 11/27/23 Range/Units 13:52 05:53 Chloride 108 H (98-107) mmol/L Calcium 8.4 L (8.6-10.3) mg/dl U Marijuana (THC) Screen Pos H (Neg) Diagnostic Findings MRI brain - unremarkable (1) Syncopal episodes Syncope type: unspecified Qualified Code(s): R55 - Syncope and collapse
--- NOTE | 2023-11-27 15:47 | Discharge Summary ---
Date of Service November 27, 2023 Admission HPI Per Admitting Provider Beto Tinajero is a 38y/o M with PMHx of chronic maxillary sinusitis, seizure-like activity, marijuana use, anxiety/chronic PTSD, major depressive disorder w/o psychotic features, schizoaffective disorder, hx of pancreatitis, former tobacco use and other problems listed below who presented to the ER today for evaluation of ongoing frequent syncopal episodes w/ associated lightheadedness and chest pressure. History obtained from patient, and associated ED/PCP/specialist records. According to [facility] documentation, appears patient has had these syncopal episodes for a few months now and is currently following with [facility] [Dr. Irais Desir]. Patient's most recent visit with Dr. Desir was on 11/23/2023. At that time, his impression was to have the patient be seen rather imminently d/t major concern of a life-threatening cardiac issue that may be contributing to the syncopal spells he has been having. According to that visit documentation, patient was supposed f/u up with cardiology in the outpatient setting but he ultimately canceled his last cardiology appointment. Patient was initially seen by [facility] on 08/11/2023 following a visit to [facility] ED [occurring 07/31/23] for evaluation of the same symptoms that he is presenting with today. At that initial visit with neurology, Dr. Desir mentions in his documentation that the syncopal spells are not neurologic in origin but are rather resulting from hypotension, perhaps d/t a potential cardiac arrhythmia. It was during that appointment that the patient was ultimately referred to cardiology. However, as per above, he did not see cardiology. Per [facility] documentation, he was supposed to see JEAN PIERRE Weaver @ [facility] on 08/23/23. Of note, Dr. Desir prohibited him from driving during that neurology visit in July. Patient was seen again in the ED here @ [facility] on 08/22/2023 for evaluation of the same syncopal episodes. Troponin and D-dimer x 1 both negative at that time. Negative RVP, chest x-ray showed no acute processes. He was ultimately discharged home following a negative workup. It appears patient was to have a loop recorder in the outpatient setting, but has not done so. Patient mentions he is supposed to see [facility] next week on Wednesday [11/30], which is confirmed with [facility] documentation. Vitals appear stable in the ED. BP slightly elevated at 151/86, HR stable at 89 bpm. Currently 98% O2 sat on RA, no fever present. Labs performed in ED rather unremarkable, no signs of an acute infectious process occurring. No acute electrolyte abnormalities. D-dimer negative, UA unremarkable. Chest x-ray negative for any acute cardiopulmonary findings. Head CT shows no acute intracranial findings, no calvarial fracture. Patient seen at bedside. Patient reports ongoing, intermittent tinnitus in both ears for the past approximately 5 to 10 years. Over the past couple of years, he has had these "syncopal" episodes occurring rather randomly. He states that during these episodes he becomes very lightheaded, his vision becomes altered and then he kind of subsequently "zones out." He does not pass out during every episode, however, there have been witnessed incidences of him fainting/passing out. Patient mentions that approximately 8 years ago he had one of these spells that was ultimately witnessed, and he was subsequently treated at [facility]. Patient states they conducted an echo at that time, which revealed "air around his heart." He reports that nothing came about that, and he has not been following with anybody regarding that incident since then. The only recent previous imaging I can see in [facility] is a CT of his head/brain w/o contrast that was conducted on 02/01/2023, which revealed no acute intracranial abnormality. Following the spells, he cannot really remember what happened and sometimes beco mes rather fatigued for days following an episode. Patient states there was an incidence where he was severely fatigued for 3 days following an episode. He does mention that his father has epilepsy, but he was never properly tested for potentially having seizure activity. He currently denies any urinary or bowel issues. He does have a history of palpitations, but is currently not having any palpitations or SOB. He does sometimes have a headache with these episodes as well. He does not have any previous cardiac history, except as per above. He does report some ongoing issues with weakness/fatigue in his legs, which happens occasionally and resolves within a couple of days each time. Most recently, he has not had any issues with ambulation at home. He does live in an apartment alone, which worries him given his hx of these episodes and the potential for him to not have anyone around if something more insidious were to occur [i.e., becoming unresponsive, hitting his head, etc.]. He denies any recent head trauma or falls. No numbness/tingling in any of his extremities or resting tremor. He did have one of these episodes earlier today with associated chest pressure, which has subsequently subsided. He is not currently lightheaded or dizzy. Of note, he can feel these episodes coming on. He is now aware to brace himself and place his body in a safe position in case he were to lose consciousness/become unresponsive. Feels he is currently at baseline. Looking for answers at this point. Admission Exam Per Admitting Provider General Appearance: WD/WN, vitals as above, NAD, conversing appropriately. Head: Normocephalic, atraumatic. Eyes: Normal inspection, PERRL, conjunctivae normal, anicteric sclerae. ENT: External ear and nose normal, oropharynx normal. Neck: Normal visual inspection, trachea midline, no thyromegaly. Respiratory: Normal respiratory effort, lungs clear to auscultation, some mild wheezing throughout, no rales, rhonchi. No accessory muscle use. Cardiovascular: Regular rate, rhythm, no murmur, normal peripheral pulses, no BLE edema. Vessels: No JVD. Chest: Normal inspection of chest. Abdomen/GI: Normal bowel sounds, soft, nontender, no hepatosplenomegaly. Extremities/Musculoskeletal: No cyanosis or clubbing, extremities motor strength 5/5. Neurologic: PERRL, EOMI, accommodation nl, no face palsy, no dysarthria, CN's II-XI grossly intact bilaterally and moves all extremities. Psychiatric: A+Ox3, euthymic affect. Skin: No rashes, normal color, warm/dry. Principal Diagnosis Recurrent syncopal episodes, chronic Discharge Exam General Appearance: WD/WN, vitals as above, NAD, conversing appropriately. Head: Normocephalic, atraumatic. Eyes: Normal inspection, PERRL, conjunctivae normal, anicteric sclerae. ENT: External ear and nose normal, oropharynx normal. Neck: Normal visual inspection, trachea midline, no thyromegaly. Respiratory: Normal respiratory effort, lungs clear to auscultation, some mild wheezing throughout, no rales, rhonchi. No accessory muscle use. Cardiovascular: Regular rate, rhythm, no murmur, normal peripheral pulses, no BLE edema. Vessels: No JVD. Chest: Normal inspection of chest. Abdomen/GI: Normal bowel sounds, soft, nontender, no hepatosplenomegaly. Extremities/Musculoskeletal: No cyanosis or clubbing, extremities motor strength 5/5. Neurologic: PERRL, EOMI, accommodation nl, no face palsy, no dysarthria, CN's II-XI grossly intact bilaterally and moves all extremities. Psychiatric: A+Ox3, euthymic affect. Skin: No rashes, normal color, warm/dry. Discharge Data Allergies Allergy/AdvReac Type Severity Reaction Status Date / Time ibuprofen AdvReac Intermediate Gastrointestinal Verified 11/26/23 17:17 Upset Consultations 11/26/23 15:55 ED Decision to Admit Stat 11/26/23 15:56 Consult Cardiology Routine Consult Neurology Routine Ordered Studies 11/26/23 14:59 CT head/brain wo con Stat 11/26/23 15:58 MRI Brain [MR brain wo con] Routine Hospital Course (1) Syncopal episodes: (2) Sensation of chest pressure: Per prior attending with addendum: Beto Tinajero is a 38y/o M with PMHx of Chronic maxillary sinusitis, seizure- like activity, marijuana use, anxiety/chronic PTSD, major depressive disorder w/o psychotic features, hx of pancreatitis, former tobacco use and other problems listed below who presented to the ER today for evaluation of ongoing frequent syncopal episodes w/ associated lightheadedness and chest pressure. According to [facility] documentation, appears patient has had these syncopal episodes for a few months now and is currently following with [facility] [Dr. Irais Desir]. Patient's most recent visit with Dr. Desir was on 11/23/2023. At that time, his impression was to have the patient be seen rather imminently d/t major concern of a life-threatening cardiac issue that may be contributing to the syncopal s pells he has been having. According to that visit documentation, patient was supposed f/u up with cardiology in the outpatient setting but he ultimately canceled his last cardiology appointment. Patient was initially seen by [facility] on 08/11/2023 following a visit to [facility] ED [occurring 07/31/23] for evaluation of the same symptoms that he is presenting with today. At that initial visit with neurology, Dr. Desir mentions in his documentation that the syncopal spells are not neurologic in origin but are rather resulting from hypotension, perhaps d/t a potential cardiac arrhythmia. It was during that appointment that the patient was ultimately referred to cardiology. However, as per above, he did not see cardiology. Per [facility] documentation, he was supposed to see JEAN PIERRE Weaver @ [facility] on 08/23/23. Patient was seen again in the ED here @ [facility] on 08/22/2023 for evaluation of the same syncopal episodes. Troponin and D-dimer x 1 both negative at that time. Negative RVP, chest x-ray showed no acute processes. He was ultimately discharged home following a negative workup. It appears patient was to have a loop recorder in the outpatient setting per previous documentation(?), but has not done so. Patient mentions he is supposed to see [facility] next week on Wednesday [11/30], which is confirmed with [facility] documentation. He does mention that his father has epilepsy, but he himself was never previously tested for seizures. Vitals appear stable in the ED. BP slightly elevated at 151/86, HR stable at 89 bpm. Currently 98% O2 sat on RA, no fever present. Labs performed in ED rather unremarkable, no signs of an acute infectious process occurring. No acute electrolyte abnormalities. D-dimer negative, UA unremarkable. EKG interpreted by Dr. Shayan Lucero and reveals the following: NSR w/ HR 85bpm, QRS Dur 82ms, P-R Int 150ms, QT/QTc Int 366/435ms. When compared to most recent EKG done on 08/22/2023, no significant change was found. Chest x-ray negative for any acute cardiopulmonary findings. Head CT shows no acute intracranial findings, no calvarial fracture. He will require further cardiac and neurologic workup/evaluation. -As per above, neurology and cardiology consults placed. Appreciate their input/recommendations. -Cardiac workup thus far w/ echo, orthostatic vitals and chest x-ray [at this time, pending proper eval]. -Also included in cardiac workup is troponin level, which is currently pending. Will follow results. -Neurologic workup to include EEG, brain MRI [at this time, pending proper eval ]. -Fall precautions, BMP and CBC no diff in AM. Continuous cardiac monitoring. -Bowel regimen in place, no recent changes in his bowel habits per HPI. -Urine drug screen pending, will follow results. Continue IVF w/ NSS. (3) Former tobacco use: (4) Seasonal asthma: Currently 98% O2 sat on RA, no acute distress or SOB. No need for any supplemental oxygen therapy at this time. -Will continue [employer] albuterol inhaler for any SOB/wheezing that may develop throughout hospitalization. (5) Antisocial personality disorder: (6) Schizoaffective disorder, depressive type: (7) Cannabis abuse: (8) Anxiety: Does report multiple episodes of cannabis use daily [smokes it] --> ? Could this be contributing to these syncopal episodes As discussed in the HPI, patient does not suspect that his can cannabis use is a contributing factor to the ongoing symptoms that he has been experiencing and is presenting with today. Hard to make that determination given chronic use and inability to confirm exact strength/dosing. May very well be a contributing factor, however, cannot make that determination without proper neurological/cardiology cardiac workup. -Not currently on any psychiatric medication regimen upon admission. -Continue to monitor for any abnormal behavior/aggression or any signs of delirium. DVT Prophylaxis: SCDs - For now. Code Status: Full Code PCP: Idalia Houser MD Dispo: Admit to Med/Surg w/ Telemetry Patient seen in collaboration with Dr. Mascorro. Please see addendum. I spent a total of 75 minutes coordinating, documenting, and providing care for this patient excluding time spent in the performance of separately billed services. This included personally reviewing all current laboratories and imaging studies, medical reconciliation, outpatient chart review and discussion with specialists. This chart was completed in part utilizing Speech Voice Recognition Software. Grammatical errors, random word insertions, pronoun errors, and incomplete sentences are an occasional consequence of this system due to software limitations, ambient noise, and hardware issues. Any formal questions or concerns about the content, text, or information contained within the body of this dictation should be directly addressed to the provider for clarification. Plan addendum 11/27/2023: Patient was seen and examined at bedside as a follow-up of recurrent syncopal events. Neurology and cardiology evaluated the patient. Patient is hemodynamically stable and would like to go home. Patient has been advised to not miss the cardiology appointment for loop recorder implantation. Patient also advised to follow-up with neurology office within a month time and also to get ambulatory EEG. He is being discharged with following instructions at the point of discharge: Follow-up with your primary care physician within a week time and likely you will need labs CBC/CMP/magnesium/phosphorus. Follow-up with cardiology within a week time upon discharge, maintain your scheduled cardiology follow-up on 12/01/2023. You will need outpatient loop recorder implantation. No driving until cleared per your cardiology and neurology as an outpatient. Follow-up with neurology as an outpatient in 2 to 4 weeks. You will benefit from outpatient EEG/ambulatory EEG. Coordinate with your neurology office to set up the test. Take your medications as prescribed. Please make sure that you are able to get your medications today by calling your pharmacy before you leave the hospital so that your treatment continuity is not broken. Home Health Attestation I certify that this patient is under my care and that I, or a physicians business support assistant working with me, had a face to-face encounter that meets the home health [id number] encounter requirements with this patient. The encounter with the patient was in whole, or in part, for the following medical condition, which is the primary reason for home health care (list medical condition): I certify that, based on my findings, the following services are medically necessary home health services: My clinical findings support the need for the above services because: Further, I certify that my clinical findings support that this patient is homebound (i.e. absences from home require considerable and taxing effort and are for medical reasons or episcopal services or infrequently or of short duration when for other reasons) because: Certification for Home Health Services: Based on the above findings, I certify that this patient is confined to the home and needs intermittent half-way care, physical therapy and/or speech therapy or continues to need occupational therapy. The patient is under my care, and I have initiated the establishment of the plan of care. This patient will be followed by a physician who will periodically review the plan of care. Total Time Total Time Spent Total Time Spent (In Minutes): 45 Discharge Plan Discharge Items Patient Disposition: Home - Self-Care Reason For Visit: CARDIAC WORK-UP Discharge Diagnosis: Recurrent syncopal episodes, chronic Activity: Resume your previous activity Non-emergency contact: Primary Care Provider Call non-emergency contact if: you have any medication questions Follow-up/Referrals: Idalia Houser MD [Primary Care Provider] - Diet: Heart Healthy Addtl Attending Provider Instructions: Follow-up with your primary care physician within a week time and likely you will need labs CBC/CMP/magnesium/phosphorus. Follow-up with cardiology within a week time upon discharge, maintain your scheduled cardiology follow-up on 12/01/2023. You will need outpatient loop recorder implantation. No driving until cleared per your cardiology and neurology as an outpatient. Follow-up with neurology as an outpatient in 2 to 4 weeks. You will benefit from outpatient EEG/ambulatory EEG. Coordinate with your neurology office to set up the test. Take your medications as prescribed. Please make sure that you are able to get your medications today by calling your pharmacy before you leave the hospital so that your treatment continuity is not broken. Pending Studies at Discharge: No Stand-Alone Forms: My [employer], Smoking Cessation Medications and DC Order Prescriptions: Continued acetaminophen [Tylenol Extra Strength] 500 mg Tablet 500 mg PO DIRECTED PRN (Reason: Pain) albuterol sulfate 90 mcg/actuation Hfa Aerosol Inhaler 1 inh INHALATION DIRECTED PRN (Reason: COUGH/WHEEZING/SHORT OF BREATH) aspirin 325 mg Tablet,Delayed Release (Dr/Ec) 325 mg PO DIRECTED PRN (Reason: Pain) Discontinued Cannabis 1 dose inhalation DIRECTED PRN (Reason: NEEDED PER PT) Rx Instructions: SMOKES, EATS Discharge Orders: Discharge Order (Routine); Ordered 11/27/23 Ordered By: Ronald Barraza Admission Data Admit Date/Time: 11/26/23 15:56 Attending Provider: Ronald Barraza Admit Provider: Osvaldo Mascorro Primary Care Provider: Idalia Houser Other Providers: Howard Aviles; Shayan Dominguez; Osvaldo Mascorro
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
== END 2023-11-27 17:55 | disposition home or self-care (01) | DRG 312 ==
LOC: ED 13:05 → SUATTDRO 15:56 → EDINP 15:56 → 2W 22:57

== ENCOUNTER 2023-11-29 00:06 | Observation (INO) ==
[2023-11-29 00:31] LABS: Basophils # (auto) 0.08 K/uL (0.00-0.20); Basophils % (auto) 0.8 %; Eosinophils # (auto) 0.43 K/uL (0.00-0.50); Eosinophils % (auto) 4.1 %; Hematocrit (blood only) 41.7 % (42.0-52.0); Hemoglobin 14.4 g/dl (14.0-18.0); Immature Granulocytes # (auto) 0.03 K/uL (0.01-0.20); Immature Granulocytes % (auto) 0.3 %; Lymphocytes # (auto) 2.87 K/uL (1.20-3.40); Lymphocytes % (auto) 27.2 %; Mean Corpuscular Hemoglobin 30.5 pg (25.0-34.0); Mean Corpuscular Hgb Conc 34.5 g/dL (32.0-36.0); Mean Corpuscular Volume 88.3 fL (80.0-100.0); Mean Platelet Volume 9.6 fL (9.4-12.4); Monocytes # (auto) 0.91 K/uL (0.11-0.59); Monocytes % (auto) 8.6 %; Neutrophils # (auto) 6.23 K/uL (1.40-6.50); Platelet Count 261 K/uL (130-400); RDW Coefficient of Variation 12.6 % (11.5-14.5); RDW Standard Deviation 41.1 fL (36.4-46.3); Red Blood Count 4.72 M/uL (4.70-6.10); White Blood Count 10.55 K/ul (4.8-10.8)
--- NOTE | 2023-11-29 00:42 | Emergency Department Note ---
Impression & Plan Heart palpitations, Chest pain, Dizziness ED Provider Note HISTORY OF PRESENT ILLNESS: Patient is a 38-year-old male presenting with chest pain and palpitations. Patient reports that his symptoms have been ongoing "for a while." He states that "I occasionally get 1 big pump of my heart that then feels like my heart is racing afterwards." He states that this "big bump" woke him from sleep this evening and he is felt lightheaded and unwell ever since. He states he has had nausea and diaphoresis with the sensation that his heart is racing. He locates the chest pain to the substernal region without any radiation. Reports some associated shortness of breath. He was admitted few days ago to the hospital for similar symptoms but is scheduled to see a electric switch tester in the outpatient setting later this week. Denies any DVT or PE history. He is not on any anticoagulation. Denies any history of cardiac stents. He currently complains of feeling lightheaded. ROS: as above PHYSICAL EXAM: Constitutional: Patient appears in no acute distress. HENT: Head: Normocephalic and atraumatic. Eyes: EOMI, PERRL Mouth/Throat: Mucous membranes moist. Neck: Trachea midline. Neck supple. Cardiovascular: RRR, No murmurs, rubs or gallops. Intact distal pulses. Pulmonary/Chest: No respiratory distress. Breath sounds clear and equal bilaterally. No wheezes or rales. Abdominal: Abdomen soft, no tenderness, rebound or guarding Musculoskeletal: No edema, tenderness or deformity noted. Skin: Warm and dry. No rash, erythema, pallor or cyanosis Psychiatric: Appropriate mood and affect for situation. Neurological: Alert and keenly responsive. CN II-XII grossly intact, moving all extremities equally and fully. MDM: - Vitals signs showed hypertension - History obtained via patient. History as above. - Chronic conditions affecting care: schizoaffective disorder - Differential diagnoses include, but are not limited to: Acute coronary syndrome; pulmonary embolism; dissection; tension pneumothorax; esophageal rupture; pneumonia - Order placed for continuous cardiac monitoring. At this time, monitor showed rate of 76 bpm with normal sinus rhythm, per my interpretation. - External medical records reviewed. Discharge summary dated 11/27/2023 was reviewed. Patient was admitted at that time for recurrent syncopal episodes. Patient was seen by cardiology and neurology during his inpatient stay. He is scheduled for an outpatient loop recorder placement here within the next week. He is supposed to call to schedule with neurology within the next month. - EKG interpreted by myself showed normal sinus rhythm. Rate 73 bpm. QT 408. No acute ischemic changes - Laboratory workup interpreted by myself showed normal WBC; stable electrolytes; negative dimer; normal troponin; normal lipase; negative lyme - CXR negative for pneumonia, per my interpretation - Patient given 1L NS and 4 mg IV zofran for nausea in ER. - On reassessment at 03:15, patient reports he is still feeling very dizzy. He reports he still feels like his heart is having abnormal rhythms. However, he has been on telemetry during his entire stay in the emergency department and has not had any significant PVCs or dysrhythmias noted. He does not feel comfortable going home with his persistent dizziness. Patient had extensive imaging of his head during his recent stay, including a brain MRI which was negative. He has no focal neurological deficits, so though CT imaging of the head was considered it was not obtained again. - Discussion was had with bilingual case manager about patient's case and need for admission - Hospitalist consulted for admission - [facility] ASSESSMENT AND PLAN: Diagnosis: Palpitations; chest pain; dizziness Plan: admit Past Med/Surg History Problem List (Updated 11/29/23 @ 03:27 by Gracy Joy MD) Dizziness (Acute) Chest pain (Acute) Heart palpitations (Acute) Seasonal asthma Former tobacco use Anxiety Antisocial personality disorder Schizoaffective disorder, depressive type Cannabis abuse Sensation of chest pressure Syncopal episodes (Acute) Medical History Alcohol abuse Depression Suspected COVID-19 virus infection Pneumomediastinum Cellulitis Pancreatitis Suicidal ideation Opiate abuse, continuous Homicidal ideation Surgical History History of surgery on arm Family History Father Epilepsy Social History Smoking Status: Never smoker Tobacco Type: Cigarettes Second Hand Exposure: Yes; Hx Alcohol Use: Yes Hx Substance Use: Yes Last Used Substance: Just Prior to Arrival Last Used 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:: marijuana use [employer] [facility] Substance Use Type Other:: plisobian mushrooms occasionally Preferred Language: Korean Communication Ability: Effective Shipping And Receiving Operator Required: No Beliefs That Will Affect Care: None Current Living Situation: Alone Feels Safe at Home: Yes Assistive Devices: Glasses Allergies Allergies Allergy/AdvReac Type Severity Reaction Status Date / Time ibuprofen AdvReac Intermediate Gastrointestinal Verified 11/29/23 02:00 Upset Home Meds Home Medications Medication Instructions Recorded Confirmed acetaminophen 500 mg tablet 500 - 1,000 mg PO DIRECTED PRN 07/31/23 11/29/23 (Tylenol Extra Strength) Pain albuterol sulfate 90 mcg/actuation 1 inh inhalation DIRECTED PRN 07/31/23 11/29/23 aerosol inhaler COUGH/WHEEZING/SHORT OF BREATH aspirin 325 mg tablet,delayed 325 mg PO DIRECTED PRN Pain 11/26/23 11/29/23 release Results & Data (ED) Vital Signs Vital Signs - 24 hr 11/29/23 00:20 11/29/23 00:30 11/29/23 00:51 Temperature 37.0 C Temperature Source Oral Pulse Rate 74 Pulse Rate [Apical] 79 82 Pulse Rhythm [Apical] Regular Pulse Strength [Apical] Normal Respiratory Rate 21 12 Respiratory Effort / Characteristics Non-Labored Non-Labored Respiratory Depth Normal Normal Respiratory Pattern Regular Regular Blood Pressure Blood Pressure [Right Arm] 139/100 144/91 H Blood Pressure Mean Blood Pressure Mean [Right Arm] 113 108 Blood Pressure Position Blood Pressure Position [Right Arm] Lying Lying Pulse Oximetry 99 98 Oxygen Delivery Method Room Air Room Air Sepsis Recent Fever Within 48 Hours Sepsis New/Unexplained Change in Mental Status Sepsis Action Taken by Nursing 11/29/23 01:00 11/29/23 02:00 Temperature 37 C Temperature Source Oral Pulse Rate 75 Pulse Rate [Apical] 73 Pulse Rhythm [Apical] Regular Pulse Strength [Apical] Normal Respiratory Rate 21 15 Respiratory Effort / Characteristics Non-Labored Non-Labored Respiratory Depth Normal Normal Respiratory Pattern Regular Regular Blood Pressure 139/100 Blood Pressure [Right Arm] 132/81 Blood Pressure Mean 113 Blood Pressure Mean [Right Arm] 98 Blood Pressure Position Lying Blood Pressure Position [Right Arm] Lying Pulse Oximetry 94 96 Oxygen Delivery Method Room Air Room Air Sepsis Recent Fever Within 48 Hours No Sepsis New/Unexplained Change in Mental Status No Sepsis Action Taken by Nursing No Action Required Laboratory Data 11/29/23 00:10 11/29/23 00:10 Lab Results 11/29/23 11/29/23 Range/Units 00:10 01:23 WBC 10.55 (4.8-10.8) K/ul RBC 4.72 (4.70-6.10) M/uL Hgb 14.4 (14.0-18.0) g/dl Hct 41.7 L (42.0-52.0) % MCV 88.3 (80.0-100.0) fL MCH 30.5 (25.0-34.0) pg MCHC 34.5 (32.0-36.0) g/dL RDW Std Deviation 41.1 (36.4-46.3) fL RDW Coeff of Eddie 12.6 (11.5-14.5) % Plt Count 261 (130-400) K/uL MPV 9.6 (9.4-12.4) fL Immature Gran % (Auto) 0.3 % Neut % (Auto) 59.0 % Lymph % (Auto) 27.2 % Dunn % (Auto) 8.6 % Eos % (Auto) 4.1 % Baso % (Auto) 0.8 % Neut # (Auto) 6.23 (1.40-6.50) K/uL Lymph # (Auto) 2.87 (1.20-3.40) K/uL Dunn # (Auto) 0.91 H (0.11-0.59) K/uL Eos # (Auto) 0.43 (0.00-0.50) K/uL Baso # (Auto) 0.08 (0.00-0.20) K/uL Immature Gran # (Auto) 0.03 (0.01-0.20) K/uL D-Dimer Cancelled 340 Sodium 139 (136-145) mmol/L Potassium 3.7 (3.5-5.1) mmol/L Chloride 107 (98-107) mmol/L Carbon Dioxide 22 (21-32) mmol/L Anion Gap 10 (3-11) BUN 13 (6-23) mg/dl Creatinine 0.85 (0.6-1.4) mg/dl Est Cr Clr Drug Dosing Not Reportable Est GFR ( Amer) 129.9 ml/min Est GFR (Non-Af Amer) 112.1 ml/min BUN/Creatinine Ratio 15.3 (10-20) Glucose 81 (70-99(Fasting)) mg/dl Calcium 9.6 (8.6-10.3) mg/dl Magnesium 1.9 (1.7-2.4) mg/dl Total Bilirubin 0.4 (0.2-1.0) mg/dl AST 25 (13-39) U/L ALT 32 (7-52) U/L Alkaline Phosphatase 87 (34-104) U/L Troponin I High Sens 2.6 (0-20) pg/ml Total Protein 7.2 (6.0-8.3) gm/dl Albumin 4.7 (3.4-5.0) gm/dl Globulin 2.5 (2.5-4.0) gm/dl Albumin/Globulin Ratio 1.9 (0.9-2) Lipase 25 (11-82) U/L Lyme Disease Screen Negative (Negative) Administered Medications Sodium Chloride (Nss) 1,000 mls @ 999 mls/hr IV .Q1H1M ONE Stop: 11/29/23 03:40 Last Admin: 11/29/23 02:46 Dose: 999 mls/hr Documented By: ARNULFO Discontinued Medications Ondansetron HCl (Ondansetron Inj 2 Mg/Ml 2 Ml Vial) 4 mg IV NOW STA Stop: 11/29/23 02:41 Last Admin: 11/29/23 02:48 Dose: 4 mg Documented By: ARNULFO Discharge Plan Visit Data Chief Complaint: Cardiac Assessment Stated Complaint: Chest Discomfort, Nausea ED Provider: Gracy Joy Discharge Problem: Heart palpitations, Chest pain, Dizziness Forms Stand Alone Forms: My [facility] kajeet Prescriptions Prescriptions: No Action acetaminophen [Tylenol Extra Strength] 500 mg Tablet 500 - 1,000 mg PO DIRECTED PRN (Reason: Pain) albuterol sulfate 90 mcg/actuation Hfa Aerosol Inhaler 1 inh INHALATION DIRECTED PRN (Reason: COUGH/WHEEZING/SHORT OF BREATH) aspirin 325 mg Tablet,Delayed Release (Dr/Ec) 325 mg PO DIRECTED PRN (Reason: Pain) Referrals Referrals: Idalia Houser MD [Primary Care Provider] -
[2023-11-29 00:49] LABS: Alanine Aminotransferase 32 U/L (7-52); Albumin Globulin Ratio 1.9 (0.9-2); Albumin Level 4.7 gm/dl (3.4-5.0); Alkaline Phosphatase 87 U/L (34-104); Anion Gap 10 (3-11); Aspartate Aminotransferase 25 U/L (13-39); BUN Creatinine Ratio 15.3 (10-20); Bilirubin,Total 0.4 mg/dl (0.2-1.0); Blood Urea Nitrogen 13 mg/dl (6-23); Calcium 9.6 mg/dl (8.6-10.3); Carbon Dioxide 22 mmol/L (21-32); Chloride 107 mmol/L (98-107); Est GFR (African American) 129.9 ml/min; Est GFR (Non-African American) 112.1 ml/min; Globulin 2.5 gm/dl (2.5-4.0); Glucose 81 mg/dl (70-99(Fasting)); Lipase 25 U/L (11-82); Potassium 3.7 mmol/L (3.5-5.1); Sodium 139 mmol/L (136-145); Total Protein 7.2 gm/dl (6.0-8.3)
[2023-11-29 00:55] LABS: Troponin I High Sensitivity 2.6 pg/ml (0-20)
[2023-11-29 01:08] LABS: Magnesium 1.9 mg/dl (1.7-2.4)
[2023-11-29 01:54] LABS: D Dimer 340 ug/L FEU (0-500)
[2023-11-29] MEDS: SODIUM CHLORIDE 0.9% 1,000 ML IV ONE (02:46)
[2023-11-29] MEDS: ONDANSETRON INJ 2 MG/ML 2 ML VIAL IV STA (02:48)
[2023-11-29] MEDS: MAGNESIUM SULFATE / D5W 1 GM/100 ML BAG IV STA (03:50)
[2023-11-29] MEDS: POTASSIUM CHLORIDE CRTAB 20 MEQ TABCR PO STA (03:50)
[2023-11-29] MEDS: NSS + 20MEQ KCL 20 MEQ/1,000 ML BAG IV STA (04:48)
--- NOTE | 2023-11-29 05:26 | History & Physical Report ---
Date of Service November 29, 2023 Assessment & Plan (1) Chest pain at rest: Plan: Associated with palpitations History recurrent syncope schizoaffective disorder/antisocial personality disorder, as per records anxiety/mood disorder, stable off maintenance medications. past tobacco/alcohol abuse OBS PCU Cardiology consult Re: Chest pain and palpitations N.p.o. until seen by cardiology in anticipation of procedure DVT prophylaxis. Lovenox subcu Full code Text document was generated using [employer] voice recognition software. It may contain grammatical or spelling errors. Kindly contact undersigned for clarification of any documentation item in question. History of Present Illness Chief Complaint: Chest discomfort, palpitations Primary Care Provider: Idalia Houser MD History obtained from patient and records. Medical history significant for schizoaffective disorder, antisocial personality disorder, anxiety/mood disorder, possible seizures, past tobacco/alcohol abuse. Recent overnight confinement 3 days ago for recurrent syncope. Outpatient Linq insertion recommended by cardiology. Episode not likely seizure as per neurology. Ambulatory EEG recommended if outpatient loop recorder negative as per note. Last night, patient experienced transient chest discomfort described as thump like followed by palpitations. No syncope, no SOB. Transient headache symptoms. Patient consulted ER for evaluation. Not comfortable going home until seen by cardiology again as per ED provider. 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 Allergies Allergy/AdvReac Type Severity Reaction Status Date / Time ibuprofen AdvReac Intermediate Gastrointestinal Verified 11/29/23 02:00 Upset Home Medications Medication Instructions Recorded Confirmed Type acetaminophen 500 mg tablet 500 - 1,000 mg PO DIRECTED PRN 07/31/23 11/29/23 History (Tylenol Extra Strength) Pain albuterol sulfate 90 mcg/actuation 1 inh inhalation DIRECTED PRN 07/31/23 11/29/23 History aerosol inhaler COUGH/WHEEZING/SHORT OF BREATH aspirin 325 mg tablet,delayed 325 mg PO DIRECTED PRN Pain 11/26/23 11/29/23 History release Past Med/Surg History Problem List (Updated 11/29/23 @ 09:11 by Dewayne Orellana) Chest pain at rest Symptomatic premature ventricular contractions Dizziness (Acute) Chest pain (Acute) Heart palpitations (Acute) Seasonal asthma Former tobacco use Anxiety Antisocial personality disorder Schizoaffective disorder, depressive type Cannabis abuse Sensation of chest pressure Syncopal episodes (Acute) Medical History Alcohol abuse Depression Suspected COVID-19 virus infection Pneumomediastinum Cellulitis Pancreatitis Suicidal ideation Opiate abuse, continuous Homicidal ideation Surgical History History of surgery on arm Family History Father Epilepsy Social History Smoking Status: Never smoker Tobacco Type: Cigarettes Second Hand Exposure: Yes; Hx Alcohol Use: No Hx Substance Use: Yes Last Used Substance: Just Prior to Arrival Last Used 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:: 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 use 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 Substance Use Type Other:: plisobian mushrooms occasionally Preferred Language: [place] Citizen Communication Ability: Effective Inspector Shells Required: No Beliefs That Will Affect Care: None Current Living Situation: Alone Feels Safe at Home: Yes Assistive Devices: Glasses Review of Systems Review of Systems: As per HPI, all other systems reviewed and negative Physical Exam Physical Exam: GENERAL: Comfortable, slightly anxious, bespectacled, no respiratory distress SKIN: Normal color, warm HEENT: [place] palpebral conjunctivae, no ptosis, dry buccal mucosa NECK : Supple, no tenderness CHEST : CTA, no tenderness HEART : RRR, no obvious murmurs ABDOMEN: Some distention, nontender EXTREMITIES : No LE swelling/tenderness, no other conspicuous deformities noted NEUROLOGIC : Coherent, no facial asymmetry, no other gross focality Results & Data Results & Data Vital Signs (Past 12 Hours) Vital Signs Temp Pulse Pulse Resp BP BP Pulse Ox 11/29/23 05:00 76 18 96/64 L 98 11/29/23 04:49 70 11/29/23 04:00 70 13 128/76 96 11/29/23 02:00 73 15 132/81 96 11/29/23 01:00 37 C 75 21 139/100 94 11/29/23 00:51 74 11/29/23 00:30 82 12 144/91 H 98 11/29/23 00:20 37.0 C 79 21 139/100 99 O2 Del Method 11/29/23 05:00 Room Air 11/29/23 04:49 11/29/23 04:00 Room Air 11/29/23 02:00 Room Air 11/29/23 01:00 Room Air 11/29/23 00:51 11/29/23 00:30 Room Air 11/29/23 00:20 Room Air Laboratory Results Laboratory Results WBC 10.55 K/ul (4.8-10.8) 11/29/23 00:10 RBC 4.72 M/uL (4.70-6.10) 11/29/23 00:10 Hgb 14.4 g/dl (14.0-18.0) 11/29/23 00:10 Hct 41.7 % (42.0-52.0) L 11/29/23 00:10 MCV 88.3 fL (80.0-100.0) 11/29/23 00:10 MCH 30.5 pg (25.0-34.0) 11/29/23 00:10 MCHC 34.5 g/dL (32.0-36.0) 11/29/23 00:10 RDW Std Deviation 41.1 fL (36.4-46.3) 11/29/23 00:10 RDW Coeff of Eddie 12.6 % (11.5-14.5) 11/29/23 00:10 Plt Count 261 K/uL (130-400) 11/29/23 00:10 MPV 9.6 fL (9.4-12.4) 11/29/23 00:10 Immature Gran % (Auto) 0.3 % 11/29/23 00:10 Neut % (Auto) 59.0 % 11/29/23 00:10 Lymph % (Auto) 27.2 % 11/29/23 00:10 Darke % (Auto) 8.6 % 11/29/23 00:10 Eos % (Auto) 4.1 % 11/29/23 00:10 Baso % (Auto) 0.8 % 11/29/23 00:10 Neut # (Auto) 6.23 K/uL (1.40-6.50) 11/29/23 00:10 Lymph # (Auto) 2.87 K/uL (1.20-3.40) 11/29/23 00:10 Darke # (Auto) 0.91 K/uL (0.11-0.59) H 11/29/23 00:10 Eos # (Auto) 0.43 K/uL (0.00-0.50) 11/29/23 00:10 Baso # (Auto) 0.08 K/uL (0.00-0.20) 11/29/23 00:10 Immature Gran # (Auto) 0.03 K/uL (0.01-0.20) 11/29/23 00:10 D-Dimer 340 ug/L FEU (0-500) 11/29/23 01:23 Sodium 139 mmol/L (136-145) 11/29/23 00:10 Potassium 3.7 mmol/L (3.5-5.1) 11/29/23 00:10 Chloride 107 mmol/L (98-107) 11/29/23 00:10 Carbon Dioxide 22 mmol/L (21-32) 11/29/23 00:10 Anion Gap 10 (3-11) 11/29/23 00:10 BUN 13 mg/dl (6-23) 11/29/23 00:10 Creatinine 0.85 mg/dl (0.6-1.4) 11/29/23 00:10 Est Cr Clr Drug Dosing Not Reportable 11/29/23 00:10 Est GFR ( Amer) 129.9 ml/min 11/29/23 00:10 Est GFR (Non-Af Amer) 112.1 ml/min 11/29/23 00:10 BUN/Creatinine Ratio 15.3 (10-20) 11/29/23 00:10 Glucose 81 mg/dl (70-99(Fasting)) 11/29/23 00:10 Calcium 9.6 mg/dl (8.6-10.3) 11/29/23 00:10 Magnesium 1.9 mg/dl (1.7-2.4) 11/29/23 00:10 Total Bilirubin 0.4 mg/dl (0.2-1.0) 11/29/23 00:10 AST 25 U/L (13-39) 11/29/23 00:10 ALT 32 U/L (7-52) 11/29/23 00:10 Alkaline Phosphatase 87 U/L (34-104) 11/29/23 00:10 Troponin I High Sens 2.6 pg/ml (0-20) 11/29/23 00:10 Total Protein 7.2 gm/dl (6.0-8.3) 11/29/23 00:10 Albumin 4.7 gm/dl (3.4-5.0) 11/29/23 00:10 Globulin 2.5 gm/dl (2.5-4.0) 11/29/23 00:10 Albumin/Globulin Ratio 1.9 (0.9-2) 11/29/23 00:10 Lipase 25 U/L (11-82) 11/29/23 00:10 Lyme Disease Screen Negative (Negative) 11/29/23 00:10 Diagnostic Findings Chest x-ray as per my interpretation no congestion EKG as per my interpretation :Rate 70, NSR, normal axis, no ischemia
[2023-11-29] MEDS ORDERED: PROMETHAZINE HCL 6.25 MG in SODIUM CHLORIDE 0.9% 50 ML IV PRN (05:33)
[2023-11-29] MEDS ORDERED: oxyCODONE HCL IR 5 MG TAB (IMMEDIATE RELEASE) PO PRN (05:33)
[2023-11-29] MEDS ORDERED: NITROGLYCERIN SL 0.4 MG/TAB TAB SL PRN (05:33)
--- NOTE | 2023-11-29 07:36 | XRay Report ---
XR chest 1V portable HISTORY: 38 years-old Male Chest pain, nonspecific COMPARISON: 11/26/2023 TECHNIQUE: AP view of the chest FINDINGS: Cardiomediastinal and hilar silhouettes are within normal limits. Right-sided nipple ring. No pneumot horax, pleural effusion, airspace consolidation or pulmonary edema. The bones of the chest appear taqueria ssly intact. IMPRESSION: No acute process. ACT 112: Negative or not required by law. The above report was generated using voice recognition software. It may contain grammatical, syntax o r spelling errors. Electronically signed by: Elder Matias M.D. 11/29/2023 7:35 AM
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
[2023-11-29] MEDS: ENOXAPARIN INJ 40 MG/0.4 ML SYR SQ SCH (09:06)
--- NOTE | 2023-11-29 12:02 | Electroencephalogram ---
EEG Procedure Note Date of Service November 29, 2023 Start / End Times Start Time: 06:15 End Time: 06:[address] Karen Sheppard History A 38 year old male with syncope. EEG performed for evaluation of epileptiform activity. Home Medication List Medication Instructions Recorded Confirmed Type acetaminophen 500 mg tablet 500 - 1,000 mg PO DIRECTED PRN 07/31/23 11/29/23 History (Tylenol Extra Strength) Pain albuterol sulfate 90 mcg/actuation 1 inh inhalation DIRECTED PRN 07/31/23 11/29/23 History aerosol inhaler COUGH/WHEEZING/SHORT OF BREATH aspirin 325 mg tablet,delayed 325 mg PO DIRECTED PRN Pain 11/26/23 11/29/23 History release Inpatient Medication List Enoxaparin Sodium (Enoxaparin Inj 40 Mg/0.4 Ml Syr) 40 mg SQ Q[facility] Stop: 12/29/23 08:59 Last Admin: 11/29/23 09:06 Dose: Not Given Documented By: Potassium Chloride/Sodium Chloride (Normal Saline W/20 Meq Kcl) 20 meq in 1,000 mls @ 60 mls/hr IV .[id number] STA; Protocol Stop: 11/29/23 21:17 Last Admin: 11/29/23 04:48 Dose: 60 mls/hr Documented By: ARNULOF Discontinued Medications Sodium Chloride (Nss) 1,000 mls @ 999 mls/hr IV .Q1H1M ONE Stop: 11/29/23 03:40 Last Infusion: 11/29/23 03:50 Dose: Infused Documented By: Admin: 11/29/23 02:46 Dose: 999 mls/hr Documented By: ARNULFO Magnesium Sulfate/Dextrose (Magnesium Sulfate / D5w) 1 gm in 100 mls @ 50 ml s/hr IV ONE STA Stop: 11/29/23 05:41 Last Infusion: 11/29/23 06:00 Dose: Infused Documented By: Admin: 11/29/23 03:50 Dose: 50 mls/hr Documented By: ARNULFO Ondansetron HCl (Ondansetron Inj 2 Mg/Ml 2 Ml Vial) 4 mg IV NOW STA Stop: 11/29/23 02:41 Last Admin: 11/29/23 02:48 Dose: 4 mg Documented By: ARNULFO Potassium Chloride (Potassium Chloride Crtab 20 Meq Tabcr) 40 meq PO NOW STA Stop: 11/29/23 03:39 Last Admin: 11/29/23 03:50 Dose: 40 meq Documented By: ARNULFO Description This is a 21 electrode EEG with a single channel dedicated to limited EKG. The electrodes were placed in accordance with the International 10-20 system. REPORT: At the onset of the EEG, the patient is awake. The background activity consist of 10-11 Hz, persistent, posteriorly dominant, moderate amplitude, symmetric and rhythmic activity that is reactive to eye opening. Anteriorly, it consist of a mixture of low voltage indeterminate activity and 15-25 Hz, persistent, low amplitude, symmetric and rhythmic activity. Stepwise intermittent photic stimulation (1-21 Hz) does not induce any abnormalities. Drowsiness is characterized by low amplitude mixed frequency activity, roving eye movements, and decreased eye blinking and muscle artifact. Interpretation IMPRESSION: This is a normal awake and drowsy EEG. There is no evidence of focal slowing or epileptiform activity.
--- NOTE | 2023-11-29 13:06 | Communication Note ---
Date of Service: November 29, 2023 Patient was seen and examined at bedside. 38-year-old male with PMH of chronic maxillary sinusitis, marijuana use, antisocial personality disorder, possible seizure, anxiety/chronic PTSD, major depressive disorder without psychotic features, schizoaffective disorder, pancreatitis, past tobacco/alcohol abuse presented to the ED for evaluation of ongoing frequent syncopal episodes with associated lightheadedness and chest pressure which has been more frequent lately than ever [problem since last 8 years]. His last episode woke him up from sleep at 10 pm the day prior to arrival, he continued to have palpitation and chest discomfort after waking up. No loss of consciousness. He is not aware of snoring at home, he lives alone. He was recently here for recurrent syncope and discharged with recommendation for outpatient loop insertion. Episode not deemed seizure per neurology. He is being managed for the following: Palpitation Sensation of chest pressure Recurrent events of palpitation, more frequent lately. Will obtain nocturnal pulse oximetry, sleep study as an outpatient. Continue telemetry monitoring, monitor and replete electrolytes. Cardiology on board, appreciate recommendation. N.p.o. until seen by cardiology. Possible seizure: Neurology evaluated him in the recent admission, episode not deemed seizure. He was recommended ambulatory EEG though. EEG in this hospital WNL. Other chronic medical conditions: Continue with/resume his home meds as and when able. Schizoaffective disorder/antisocial personality disorderAs per records Anxiety/mood disorder, stable off maintenance medication. Past tobacco/alcohol abuse DVT prophylaxis: Lovenox subcu Full code Please note the above document was generated using voice recognition software. It may contain grammatical, syntax or spelling errors. Any formal questions or concerns about the content, text or information contained within the body of this dictation should be directly addressed to the undersigned for clarification.
[2023-11-29 16:56] LABS: Appearance Urine Clear (Clear); Bilirubin Urine Negative (Negative); Blood Urine Negative (Negative); Color Urine Yellow; Glucose Urine UA Negative (Negative); Ketones Urine 2+ (Negative); Leukocyte Esterase Urine Negative (Negative); Nitrite Urine Negative (Negative); Protein Urine Negative (Negative); Specific Gravity Urine 1.009 (1.000-1.030); Urobilinogen Urine Negative (Negative); pH Urine 5.5 (4.5-7.5)
[2023-11-29 17:32] LABS: Amphetamines+Metham, Urine Neg (Neg); Barbiturates, Urine Neg (Neg); Benzodiazepine, Urine Neg (Neg); Cocaine, Urine Neg (Neg); Fentanyl, Urine Neg (Neg); MDMA (Ecstacy), Urine Neg (Neg); Marijuana, Urine Pos (Neg); Methadone, Urine Neg (Neg); Opiate, Urine Neg (Neg); Phencyclidine, Urine Neg (Neg)
--- NOTE | 2023-11-29 17:50 | Communication Note ---
Date of Service: November 29, 2023 Patient agreeable to a loop recorder. Tentatively scheduled for 11/30/2023 at 7:45 AM. Patient does not need to be n.p.o. for procedure.
[2023-11-29] MEDS: LORazepam 0.5 MG TAB PO PRN (22:54)
--- NOTE | 2023-11-30 07:54 | History & Physical Bridge Note ---
Date of Service November 30, 2023 History & Physical Bridge Note I have examined the patient, reviewed the History & Physical and in the interval since the performance of the History & Physical I have noted the following changes of clinical significance: Pt with recurrent syncope concerning for cardiac in etiology. Recommend loop insertion prior to discharge. I discussed the procedure and potential risks with the patient and he expressed an understanding and agreed to proceed.
--- NOTE | 2023-11-30 08:16 | Operative Report ---
Post Operative Report Pre-OP diagnosis: syncope Post Op Diagnosis: Same Procedure: Loop Recorder implant DOS: 02/29/2024 Surgeon: Dr. Yanez Anesthesia: 22cc 1% lidocaine Blood Loss: 3 cc Complications: None Condition: Stable Abx: ancef Specimen: None Indications: 38yo M PMH syncope and PVCs. Due to patient's recurrent syncope he was recommended a Loop insertion. . Description of procedure: Pt was brought into the procedure room and connected to cardiac monitoring. A time out was performed identifying patient and procedure correctly. The pt re ceived antibiotic prior to incision. The patient was prepped and draped in a sterile fashion over the left sternal border. Then 12 cc of 1% lidocaine where given in the 4th intercostal space to the left of the sternal border. Then using the Loop insertion tool and kit the loop was inserted. Then a 4.0 vicryl interrupted suture followed by a running stitch was placed to approximate the incision and dermabond was placed. Equipment: New Device: PFI Acquisitiont IQ EL+ [id number] SN: [id number] Parameters: Tachy 160bpm 12 beats Keshav 40bpm for 4 beats Pause: 4 seconds Implant Measurements: R waves 0.55mV Impression: Successful new Loop recorder insertion due to syncope Plan: Return to telemetry Device and wound check next week
[2023-11-30] MEDS: ceFAZolin 330 MG/ML 1 GM VIAL ONE (08:20)
[2023-11-30 09:30] LABS: BUN Creatinine Ratio 11.8 (10-20); Calcium 8.8 mg/dl (8.6-10.3); Creatinine Clr Calc Pharmacy 109.8 ml/min; Est GFR (Non-African American) 105.2 ml/min; Magnesium 1.9 mg/dl (1.7-2.4); Potassium 3.6 mmol/L (3.5-5.1)
[2023-11-30] MEDS: ACETAMINOPHEN 325 MG TAB PO PRN (09:33)
--- NOTE | 2023-11-30 09:43 | Communication Note ---
Date of Service: November 30, 2023 Pt s/p loop recorder this am. Was scheduled for outpatient cardiology consult tomorrow. Will delay appointment a few weeks and will also have pt establish with device clinic.
--- NOTE | 2023-11-30 12:18 | Discharge Summary ---
Date of Service November 30, 2023 Admission HPI Per Admitting Provider History obtained from patient and records. Medical history significant for schizoaffective disorder, antisocial personality disorder, anxiety/mood disorder, possible seizures, past tobacco/alcohol abuse. Recent overnight confinement 3 days ago for recurrent syncope. Outpatient Linq insertion recommended by cardiology. Episode not likely seizure as per neurology. Ambulatory EEG recommended if outpatient loop recorder negative as per note. Last night, patient experienced transient chest discomfort described as thump like followed by palpitations. No syncope, no SOB. Transient headache symptoms. Patient consulted ER for evaluation. Not comfortable going home until seen by cardiology again as per ED provider. 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 Admission Exam Per Admitting Provider GENERAL: Comfortable, slightly anxious, bespectacled, no respiratory distress SKIN: Normal color, warm HEENT: [place]se[place] palpebral conjunctivae, no ptosis, dry buccal mucosa NECK : Supple, no tenderness CHEST : CTA, no tenderness HEART : RRR, no obvious murmurs ABDOMEN: Some distention, nontender EXTREMITIES : No LE swelling/tenderness, no other conspicuous deformities noted NEUROLOGIC : Coherent, no facial asymmetry, no other gross focality Principal Diagnosis palpitation Discharge Exam GENERAL: Comfortable, slightly anxious, bespectacled, no respiratory distress SKIN: Normal color, warm HEENT: [place]seo palpebral conjunctivae, no ptosis, dry buccal mucosa NECK : Supple, no tenderness CHEST : CTA, no tenderness HEART : RRR, no obvious murmurs ABDOMEN: Some distention, nontender EXTREMITIES : No LE swelling/tenderness, no other conspicuous deformities noted NEUROLOGIC : Coherent, no facial asymmetry, no other gross focality Discharge Data Allergies Allergy/AdvReac Type Severity Reaction Status Date / Time ibuprofen AdvReac Intermediate Gastrointestinal Verified 11/29/23 02:00 Upset Consultations 11/29/23 03:24 ED Decision to Admit Stat 11/29/23 05:30 Consult Cardiology Routine Procedures Performed Operation Date: 11/30/23 07:45 Actual Procedures p Implant Cardiac Event Recorder - Yanira Yanez DO Hospital Course (1) Heart palpitations: Plan 38-year-old male with PMH of chronic maxillary sinusitis, marijuana use, antisocial personality disorder, possible seizure, anxiety/chronic PTSD, major depressive disorder without psychotic features, schizoaffective disorder, pancreatitis, past tobacco/alcohol abuse presented to the ED for evaluation of ongoing frequent syncopal episodes with associated lightheadedness and chest pressure which has been more frequent lately than ever [problem since last 8 years]. His last episode woke him up from sleep at 10 pm the day prior to arrival, he continued to have palpitation and chest discomfort after waking up. No loss of consciousness. He is not aware of snoring at home, he lives alone. He was recently here for recurrent syncope and discharged with recommendation for outpatient loop insertion. Episode not deemed seizure per neurology. He was managed for the following: Palpitation Sensation of chest pressure Recurrent events of palpitation, more frequent lately. Nocturnal pulse oximetry negative. Patient advised to coordinate with PCP office for formal sleep study as an outpatient. Cardiology evaluated, status post loop recorder placement 11/30/2023, patient made aware to follow-up with device clinic in 1 week time for wound check. Patient to follow-up with cardiology in 2 to 4 weeks time. Possible seizure: Neurology evaluated him in the recent admission, episode not deemed seizure. He was recommended ambulatory EEG though. EEG in this hospital WNL. Other chronic medical conditions: Continue with/resume his home meds as and when able. Schizoaffective disorder/antisocial personality disorder As per records Anxiety/mood disorder, stable off maintenance medication. Past tobacco/alcohol abuse DVT prophylaxis: Lovenox subcu Full code Patient is being discharged to home with following instruction at the point of discharge: Follow-up with your primary care physician within a week time and likely you will need labs CBC/CMP/magnesium/phosphorus. Follow-up with your cardiology in 2 to 4 weeks time upon discharge. Follow-up with your device to clinic in 1 week time upon discharge. You will benefit from formal sleep study as an outpatient, coordinate with the PCP office to set up the test. Take your medications as prescribed. Recommend quitting marijuana use. Please make sure that you are able to get your medications today by calling your pharmacy before you leave the hospital so that your treatment continuity is not broken. [facility] Attestation I certify that this patient is under my care and that I, or a physicians assistant winemaker working with me, had a face to-face encounter that meets the [id number] encounter requirements with this patient. The encounter with the patient was in whole, or in part, for the following medical condition, which is the primary reason for home health care (list medical condition): I certify that, based on my findings, the following services are medically necessary home health services: My clinical findings support the need for the above services because: Further, I certify that my clinical findings support that this patient is homebound (i.e. absences from home require considerable and taxing effort and are for medical reasons or mandaeism services or infrequently or of short duration when for other reasons) because: Certification for Home Health Services: Based on the above findings, I certify that this patient is confined to the home and needs intermittent fdc care, physical therapy and/or speech therapy or continues to need occupational therapy. The patient is under my care, and I have initiated the establishment of the plan of care. This patient will be followed by a physician who will periodically review the plan of care. Total Time Total Time Spent Total Time Spent (In Minutes): 45 Discharge Plan Discharge Items Patient Disposition: Home - Self-Care Reason For Visit: CHEST PAIN, PALPITATIONS Discharge Diagnosis: Palpitation Sensation of chest pressure Activity: Resume your previous activity Non-emergency contact: Primary Care Provider Call non-emergency contact if: you have any medication questions, your symptoms worsen and your temperature is above 101.5 Follow-up/Referrals: Idalia Houser MD [Primary Care Provider] - Diet: Heart Healthy and Low Sodium (2gm) Addtl Attending Provider Instructions: Follow-up with your primary care physician within a week time and likely you will need labs CBC/CMP/magnesium/phosphorus. Follow-up with your cardiology in 2 to 4 weeks time upon discharge. Follow-up with your device to clinic in 1 week time upon discharge. You will benefit from formal sleep study as an outpatient, coordinate with the PCP office to set up the test. Take your medications as prescribed. Recommend quitting marijuana use. Please make sure that you are able to get your medications today by calling your pharmacy before you leave the hospital so that your treatment continuity is not broken. Pending Studies at Discharge: No Stand-Alone Forms: My [employer], Smoking Cessation Medications and DC Order Prescriptions: Continued acetaminophen [Tylenol Extra Strength] 500 mg Tablet 500 - 1,000 mg PO DIRECTED PRN (Reason: Pain) albuterol sulfate 90 mcg/actuation Hfa Aerosol Inhaler 1 inh INHALATION DIRECTED PRN (Reason: COUGH/WHEEZING/SHORT OF BREATH) aspirin 325 mg Tablet,Delayed Release (Dr/Ec) 325 mg PO DIRECTED PRN (Reason: Pain) Discharge Orders: Discharge Order (Routine); Ordered 11/30/23 Ordered By: Ronald Barraza Admission Data Admit Date/Time: 11/29/23 05:29 Attending Provider: Ronald Barraza Admit Provider: Jose Antonio Stein Primary Care Provider: Idalia Houser Other Providers: Jose Antonio tSein; Rosa Davidson; Alexander Ritchie; Howard Aviles; Lance Hi; Freddy Johnson; Dewayne Orellana; Estela Skaggs; Yanira Yanez; Catalina Luu Ashley M.; Kadeem Turcios; Deo Dill; Keely Grover; Perlita Torres; Nadja Gardiner; Paul Thibodeaux; Gonzales Cramer; Emili Quintanilla
--- NOTE | 2023-12-01 05:40 | Electrocardiogram Report ---
Test Reason : Blood Pressure : / mmHG Vent. Rate : 073 BPM Atrial Rate : 073 BPM P-R Int : 146 ms QRS Dur : 080 ms QT Int : 408 ms P-R-T Axes : -02 062 044 degrees QTc Int : 449 ms Normal sinus rhythm with sinus arrhythmia Normal ECG When compared with ECG of 26-NOV-2023 13:22, No significant change was found Confirmed by Rich Shetty ([id number]) on 12/01/2023 5:40:35 AM Referred By: REFERRED SELF Confirmed By:Rich Shetty
[2023-12-02 15:57] LABS: Marijuana Quant, GCMS Urine 200 ng/mL (<5)
== END 2023-11-30 14:24 | disposition home or self-care (01) ==
LOC: EDINP 00:06 → ED 00:06 → 2S 07:17